=== PATIENT | female | born 1930 | race Caucasian/White ===

== ENCOUNTER 2017-10-10 20:31 | Inpatient (IN) | payer MEDICARE, BC ==
[~2017-10-10] VITALS: Ht 152.4 cm; Wt 36.6 kg
[~2017-10-10 20:31] MED LIST: ACET160L7 PO; ASPI81TA82 PO; ATEN-100 PO; CETI10 PO; COUG100S2 PO; DOK100TA PO; FERR324T4 PO; FLUT50SP EACH NARE; MILKSUS5; MIRTA15 PO; ROSU1TAB6; THERTAB17; VITA500T83 PO
[2017-10-10 20:47] VITALS: BP 128/64; PULSE 91; RESP 18; TEMP 98.4; O2SAT 96
[2017-10-10] MEDS ORDERED: SERT25TA83 PO (21:05)
[2017-10-10] MEDS ORDERED: DOCU50CA5 PO (21:05)
[2017-10-10] MEDS ORDERED: ROSU10 PO (21:05)
[2017-10-10] MEDS ORDERED: METO1TAB42 PO (21:05)
[2017-10-10] MEDS ORDERED: FERR325T18 PO (21:05)
--- NOTE | 2017-10-10 21:06 | PD ---
HPI Chief Complaint: GI Complaint Time Seen by Provider: 20:47 Travel History International Travel<30 days: No Contact w/Intl Traveler<30days: No Traveled to known affect area: No History of Present Illness HPI The patient is an 87-year-old female that has recurrent rectal prolapse. She has at least 5 episodes daily of rectal prolapse. Stool is over the house at home and she is becoming progressively more difficult to care for. The family cannot care for her at home. She was sent out here for "altered mental status" but she is alert and oriented 3. She is able to give a very concise, coherent up-to-date history about her condition. When EVAC stood her up to get her in the ambulance she had a large rectal prolapse which she could not reduce and was very painful. The pain is a 6/10 when the rectum is prolapsed. The patient is a patient of Dr. Thu Morrison and Dr. Morrison inform me about the untenable home situation. PFSH Past Medical History Autoimmune Disease: No Blood Disorders: No Cancer: No Cardiovascular Problems: Yes High Cholesterol: Yes Chemotherapy: No Cerebrovascular Accident: Yes (TIA) Diabetes: No Diminished Hearing: No Endocrine: No Glaucoma: Yes Genitourinary: No Hiatal Hernia: Yes Musculoskeletal: No Neurologic: No Psychiatric: No Respiratory: No Radiation Therapy: No ?: Not Past Surgical History Abdominal Surgery: No Cardiac Surgery: No Ear Surgery: Yes Endocrine Surgery: No Eye Surgery: Yes Genitourinary Surgery: No Gynecologic Surgery: No Hysterectomy: Yes Oral Surgery: Yes Thoracic Surgery: No Other Surgery: Yes Social History Alcohol Use: No Tobacco Use: Yes (35 YRS AGO ) Substance Use: No Allergies-Medications (Allergen,Severity, Reaction): Coded Allergies: clarithromycin (Unverified Allergy, Severe, SOB, 03/15/17) doxycycline (Unverified Allergy, Severe, SOB, 03/15/17) ibuprofen (Unverified Allergy, Severe, SOB, 03/15/17) minocycline (Unverified Allergy, Severe, SOB, 03/15/17) penicillin G (Unverified Allergy, Severe, SOB, 03/15/17) tigecycline (Unverified Allergy, Severe, SOB, 03/15/17) Beef Containing Products (Unverified Allergy, Unknown, "CAN'T DIGEST IT", 03/15/17) Reported Meds & Prescriptions Reported Meds & Active Scripts Active Reported Sertraline (Sertraline HCl) 25 Mg Tab 25 Mg PO DAILY Metoprolol Succinate ER 24 HR (Metoprolol Succinate) 25 Mg Tab 25 Mg PO DAILY Crestor (Rosuvastatin Calcium) 10 Mg Tab 10 Mg PO DAILY Stool Softener (Docusate Sodium) 50 Mg Capsule 100 Mg PO DAILY Ferrous Sulfate 325 Mg (65 Mg Iron) Tablet 325 Mg PO DAILY Review of Systems Except as stated in HPI: all other systems reviewed are Neg Physical Exam Narrative GENERAL: The patient is alert, oriented 3 in moderate apparent distress with her rectal prolapse. SKIN: Focused skin assessment warm/dry. Her vital signs show a pulse of 91 but are otherwise normal. HEAD: Atraumatic. Normocephalic. EYES: Pupils equal and round. No scleral icterus. No injection or drainage. ENT: No nasal bleeding or discharge. Mucous membranes pink and moist. NECK: Trachea midline. No JVD. CARDIOVASCULAR: Regular rate and rhythm. No murmur appreciated. RESPIRATORY: No accessory muscle use. Clear to auscultation. Breath sounds equal bilaterally. GASTROINTESTINAL: Abdomen soft, non-tender, nondistended. Hepatic and splenic margins not palpable. MUSCULOSKELETAL: No obvious deformities. No clubbing. No cyanosis. No edema. NEUROLOGICAL: Awake and alert. No obvious cranial nerve deficits. Motor grossly within normal limits. Normal speech. PSYCHIATRIC: Appropriate mood and affect; insight and judgment normal. Rectal: The rectum is prolapsed and creates about a 10 cm diameter rounded mass at the rectum. It is exquisitely tender and the patient is in significant pain. The rectal prolapse was reduced by myself. The sphincter tone was extremely lax and this prolapse will certainly recur. All it would take is her standing in the rectum will come out. The patient later stood up again here in the right rectal prolapsed again. I reduced it again. There is a small amount of bleeding from the rectum now. The mucosa is bright pink and there is no evidence of impaired blood supply. Data Data Last Documented VS Vital Signs Date Time Temp Pulse Resp B/P (MAP) Pulse Ox O2 Delivery O2 Flow Rate FiO2 10/10/17 21:53 87 16 140/62 (88) 96 Room Air 10/10/17 20:47 98.4 Orders Orders Complete Blood Count With Diff (10/10/17 20:47) Comprehensive Metabolic Panel (10/10/17 20:47) Urinalysis - C+S If Indicated (10/10/17 20:47) Prothrombin Time / Inr (Pt) (10/10/17 21:08) Act Partial Throm Time (Ptt) (10/10/17 21:08) Urine Culture (10/10/17 21:14) Place In Observation (10/10/17 ) Vital Signs (Adult) Q4H (10/10/17 21:46) Activity Oob With Assistance (10/10/17 21:46) Manager Planning / Telemetry .CONTINUOUS (10/10/17 21:46) Diet Heart Healthy (10/11/17 Breakfast) Sodium Chloride 0.9% Flush (Ns Flush) (10/10/17 22:00) Sodium Chloride 0.9% Flush (Ns Flush) (10/11/17 09:00) Basic Metabolic Panel (Bmp) (10/11/17 06:00) Complete Blood Count With Diff (10/11/17 06:00) Pt Request For Service (10/10/17 21:46) Case Management Consult (10/10/17 21:46) Naloxone Inj (Narcan Inj) (10/10/17 22:00) Consult Colorectal Surgery (10/10/17 ) Ceftriaxone Inj (Rocephin Inj) (10/10/17 22:00) Ceftriaxone Inj (Rocephin Inj) (10/11/17 20:00) Labs Laboratory Tests Test 10/10/17 21:14 Prothrombin Time 10.6 SEC Prothromb Time International Ratio 1.0 RATIO Activated Partial Thromboplast Time 24.5 SEC Urine Color YELLOW Urine Turbidity SL CLOUDY Urine pH 6.0 Urine Specific [place] 1.020 Urine Protein TRACE mg/dL Urine Glucose (UA) NEG mg/dL Urine Ketones TRACE mg/dL Urine Occult Blood LARGE Urine Nitrite NEG Urine Bilirubin NEG Urine Urobilinogen 0.2 MG/DL Urine Leukocyte Esterase NEG Urine RBC INNUM /hpf Urine WBC 9-14 /hpf Urine Squamous Epithelial Cells 0-5 /hpf Microscopic Urinalysis Comment CULTURE INDICATED Blood Urea Nitrogen 19 MG/DL Creatinine 0.77 MG/DL Random Glucose 110 MG/DL Total Protein 7.3 GM/DL Albumin 3.3 GM/DL Calcium Level 8.3 MG/DL Alkaline Phosphatase 103 U/L Aspartate Amino Transf (AST/SGOT) 36 U/L Alanine Aminotransferase (ALT/SGPT) 34 U/L Total Bilirubin 0.2 MG/DL Sodium Level 138 MEQ/L Potassium Level 4.2 MEQ/L Chloride Level 103 MEQ/L Carbon Dioxide Level 29.7 MEQ/L Anion Gap 5 MEQ/L Estimat Glomerular Filtration Rate 71 ML/MIN MDM Medical Decision Making Medical Screen Exam Complete: Yes Emergency Medical Condition: Yes Medical Record Reviewed: Yes Interpretation(s) The urine shows slightly cloudy turbidity, trace ketones, large occult blood with innumerable red cells on 9-14 white cells and culture is indicated. Differential Diagnosis Urinary tract infection, rectal prolapse-recurrent, intractable rectal pain, electrolyte abnormality, anemia, renal insufficiency, ischemic rectum-unlikely Narrative Course The patient has a recurrent rectal prolapse which was so frequent that it comes out every time she stands up. It also comes out when she has a bowel movement. The home situation is untenable, there is stool throughout the house. The patient will be admitted and Dr. Mason will consult for colorectal. She has a questionable urinary tract infection. Physician Communication Physician Communication I discussed the patient with Dr. Shipley, the patient will be admitted to her. I also discussed the patient with Dr. Lopze who is covering for Dr. Mason. Dr. Mason will consult in the morning. Diagnosis Primary Impression: Rectal prolapse Additional Impressions: Intractable pain Rectal bleeding Admitting Information Admitting Physician Requests: Chad Dixon MD Oct 10, 2017 21:06
[2017-10-10 21:31] LABS: BILIRUBIN, URINE NEG (NEG); BLOOD, URINE LARGE (NEG); GLUCOSE,URINE NEG (NEG); KETONE, URINE TRACE mg/dL (NEG); NITRITE,URINE NEG (NEG); URINE COLOR YELLOW (YELLW/STRAW); URINE LEUKOCYTE ESTERASE NEG (NEG)
[2017-10-10 21:39] LABS: CHLORIDE 103 MEQ/L (98-107); SODIUM (NA) 138 MEQ/L (136-145)
[2017-10-10 21:42] LABS: ALBUMIN 3.3 GM/DL (3.4-5.0); BICARBONATE 29.7 MEQ/L (21.0-32.0); CALCIUM 8.3 MG/DL (8.5-10.1); GLUCOSE,RANDOM 110 MG/DL (74-106)
[2017-10-10 21:43] LABS: BLOOD UREA NITROGEN 19 MG/DL (7-18); PROTHROMBIN TIME - PATIENT 10.6 SEC (9.8-11.6)
[2017-10-10 21:44] LABS: RBC, URINE INNUM /hpf (0-3)
[2017-10-10 21:45] LABS: ALT (GPT) 34 U/L (10-53); SQUAMOUS EPITHELIAL CELL URINE 0-5 /hpf (0-5)
[2017-10-10 21:46] LABS: AST (GOT) 36 U/L (15-37); CREATININE 0.77 MG/DL (0.50-1.00); GLOMERULAR FILTRATION RATE 71 ML/MIN (>89)
[2017-10-10 21:47] LABS: TOTAL BILIRUBIN ADULT 0.2 MG/DL (0.2-1.0); TOTAL PROTEIN 7.3 GM/DL (6.4-8.2)
[2017-10-10 21:48] LABS: ALKALINE PHOSPHATASE 103 U/L (45-117)
[2017-10-10 21:53] VITALS: BP 140/62; PULSE 87; RESP 16; O2SAT 96
[2017-10-10 21:53] LABS: AUTOMATED NEUTROPHIL # 11.9 TH/MM3 (1.8-7.7); BASOPHIL % 0.3 % (0.0-2.0); EOSINOPHIL # 0.3 TH/MM3 (0-0.4); EOSINOPHIL % 2.2 % (0.0-4.0); HEMATOCRIT 38.4 % (35.0-46.0); HEMOGLOBIN 12.6 GM/DL (11.6-15.3); LYMPH % 6.4 % (9.0-44.0); LYMPHOCYTE # 0.9 TH/MM3 (1.0-4.8); MEAN CELL VOLUME 91.8 FL (80.0-100.0); MEAN CORPUSCULAR HEMOGLOBIN 30.1 PG (27.0-34.0); MEAN CORPUSCULAR HGB CONC 32.8 % (32.0-36.0); MEAN PLATELET VOLUME 7.9 FL (7.0-11.0); MONOCYTE # 1.1 TH/MM3 (0-0.9); NEUT % 83.1 % (16.0-70.0); PLATELET COUNT 348 TH/MM3 (150-450); RED BLOOD COUNT 4.18 MIL/MM3 (4.00-5.30); RED CELL DISTRIBUTION WIDTH 13.3 % (11.6-17.2); WHITE BLOOD COUNT 14.2 TH/MM3 (4.0-11.0)
[2017-10-10] MEDS ORDERED: SODIUM CHLORIDE 0.9% FLUSH 10 ML FLUSH IV FLUSH PRN (22:00)
[2017-10-10] MEDS ORDERED: cefTRIAXone INJ 1,000 MG in SODIUM CHLORIDE 0.9% INJ 100 ML IV ONE (22:00)
[2017-10-10] MEDS ORDERED: NALOXONE HCL 0.4 MG/ML AMP IV PUSH PRN (22:00)
[2017-10-10 22:58] VITALS: BP 111/79; TEMP 98.2
[2017-10-10] MEDS ORDERED: diphenhydrAMINE HCL 50 MG/ML VIAL IVP ONE (23:00)
[2017-10-10 23:02] VITALS: BP 174/97; PULSE 111; RESP 16; TEMP 97; O2SAT 94
[2017-10-10 23:31] VITALS: PULSE 119
[2017-10-11] VITALS: BP 145/63; PULSE 107; RESP 16; TEMP 98.5; O2SAT 94
[2017-10-11] MEDS ORDERED: diphenhydrAMINE HCL 50 MG/ML VIAL IV PUSH ONE (03:45)
[2017-10-11 04:00] VITALS: BP 140/64; PULSE 106; RESP 16; TEMP 98; O2SAT 93
[2017-10-11 06:57] LABS: AUTOMATED NEUTROPHIL # 11.5 TH/MM3 (1.8-7.7); BASOPHIL # 0.1 TH/MM3 (0-0.2); BASOPHIL % 0.6 % (0.0-2.0); EOSINOPHIL # 0.9 TH/MM3 (0-0.4); EOSINOPHIL % 6.1 % (0.0-4.0); HEMATOCRIT 36.8 % (35.0-46.0); HEMOGLOBIN 12.6 GM/DL (11.6-15.3); LYMPH % 9.4 % (9.0-44.0); LYMPHOCYTE # 1.5 TH/MM3 (1.0-4.8); MEAN CELL VOLUME 90.1 FL (80.0-100.0); MEAN CORPUSCULAR HEMOGLOBIN 30.9 PG (27.0-34.0); MEAN CORPUSCULAR HGB CONC 34.2 % (32.0-36.0); MEAN PLATELET VOLUME 7.9 FL (7.0-11.0); MONO % 8.9 % (0.0-8.0); MONOCYTE # 1.4 TH/MM3 (0-0.9); PLATELET COUNT 318 TH/MM3 (150-450); RED BLOOD COUNT 4.09 MIL/MM3 (4.00-5.30); WHITE BLOOD COUNT 15.4 TH/MM3 (4.0-11.0)
[2017-10-11 07:13] LABS: CALCIUM 8.4 MG/DL (8.5-10.1)
[2017-10-11 07:14] LABS: BICARBONATE 27.9 MEQ/L (21.0-32.0)
[2017-10-11 07:17] LABS: CREATININE 0.65 MG/DL (0.50-1.00)
[2017-10-11 08:00] VITALS: BP 122/60; PULSE 101; PULSE 53; RESP 18; TEMP 98.1; O2SAT 95
--- NOTE | 2017-10-11 08:20 | HHI.PR ---
Addendum to Inpatient Note Addendum Reason: Additional Documentation Additional Information Although patient is seemingly alert and oriented, both family and home health care who have been seeing her have found significant memory issues (she hasn't remembered the physical therapist or instructions from one visit to the next in the same week). Family notes her mental status seems to fluctuate from day to day--some days good, some not so good. They are having trouble caring for her stool needs at home due to weakness, trouble transferring to the toilet, as well as the rectal prolapse. She does have moderate aortic stenosis and other valvular issues not needing surgery at this time (just done at [facility]). Her labs have been good on testing. Metoprolol has been used more for h/o SVT than for BP control. She lives at her son's house, however he works and there are caregivers there during the day to assist her. She had been resistant to the idea of surgery for the prolapse in the past but it seems to be getting to the point that her quality of life in her current situation is poor and if surgery can improve that it may be warrented. Please keep her son up to date if possible (Gerard Romo). She is likely capable of making her own decisions at this time, however in my experience he has been involved in her care (I don't have POA papers on her chart at this time). She is new to me over the past few months. She has also had a diffuse rash and itching that I treated imperically for scabies last week--not sure if it has improved at this time or not (she had scabies last year when at an [facility]). Thu Curiel MD Oct 11, 2017 08:20
[2017-10-11] MEDS ORDERED: LEVOFLOXACIN 750 MG PREMIX INJ 150 ML IV SCH (09:00)
[2017-10-11] MEDS: SODIUM CHLORIDE 0.9% FLUSH 10 ML FLUSH IV FLUSH SCH ×2 (09:24→22:13)
--- NOTE | 2017-10-11 11:02 | HHI.HP ---
[facility] Primary Care Physician Arnaldo Hassan M.D. Admission Diagnosis Rectal prolapse with intractable rectal pain Diagnoses: Chief Complaint: Rectal prolapse and altered mental status Travel History International Travel<30 Days: No Contact w/Intl Traveler <30 Da: No Traveled to Known Affected Are: No History of Present Illness This is an 87-year-old female with history of TIA, dyslipidemia, glaucoma and rectal prolapse presented with altered mental status and rectal prolapse. Patient was initially admitted because of altered mental status however she is alert and oriented upon ED evaluation. Per patient's primary care physician Dr. Morrison, patient's mental status waxes and wanes. Her main complaint is rectal prolapse which happens about 5 times a day. She has home health care and has been progressively more difficult to care for. The family allegedly has been having a hard time taking care of her at home. When she stood up getting out of the ambulance, she had a huge rectal prolapse and wa very painful. Per patient, she is able to reduce the rectal prolapse by herself. She does not have any complaints. He is a chronic cough from postnasal drip. Denies any chest pain, fever, shortness of breath, nausea, vomiting, abdominal pain or any urinary symptoms. She just wants to go home. I tried to call the patient's son Gerard Ruffin and patient's daughter Jackie, both did not brass pickler. I left a voicemail message for Jackie. Review of Systems ROS Limitations: Other (All other pertinent systems were reviewed and are negative.) Past Family Social History Past Medical History TIA, Hiatal hernia Rectal prolapse Past Surgical History Urinary surgery Hysterectomy Oral surgery Reported Medications Sertraline (Sertraline HCl) 25 Mg Tab 25 Mg PO DAILY Metoprolol Succinate ER 24 HR (Metoprolol Succinate) 25 Mg Tab 25 Mg PO DAILY Crestor (Rosuvastatin Calcium) 10 Mg Tab 10 Mg PO DAILY Stool Softener (Docusate Sodium) 50 Mg Capsule 100 Mg PO DAILY Ferrous Sulfate 325 Mg (65 Mg Iron) Tablet 325 Mg PO DAILY Allergies: Coded Allergies: clarithromycin (Unverified Allergy, Severe, SOB, 8/15/17) doxycycline (Unverified Allergy, Severe, SOB, 03/15/17) ibuprofen (Unverified Allergy, Severe, SOB, 03/15/17) minocycline (Unverified Allergy, Severe, SOB, 03/15/17) penicillin G (Unverified Allergy, Severe, SOB, 03/15/17) tigecycline (Unverified Allergy, Severe, SOB, 03/15/17) Beef Containing Products (Unverified Allergy, Unknown, "CAN'T DIGEST IT", 03/15/17) Family History Father had Parkinson's, mother had congestive heart failure. Social History Stopped smoking 35 years, no significant alcohol use. Physical Exam Vital Signs Vital Signs Date Time Temp Pulse Resp B/P (MAP) Pulse Ox O2 Delivery O2 Flow Rate FiO2 10/11/17 08:00 98.1 53 18 122/60 (80) 95 10/11/17 08:00 101 10/11/17 04:00 98.0 106 16 140/64 (89) 93 10/11/17 00:00 98.5 107 16 145/63 (90) 94 10/10/17 23:31 119 10/10/17 23:02 97.0 111 16 174/97 (122) 94 10/10/17 22:58 98.2 70 16 111/79 (90) 97 10/10/17 21:53 87 16 140/62 (88) 96 Room Air 10/10/17 20:47 98.4 91 18 128/64 (85) 96 Physical Exam Not in distress, well-nourished, looks stated age PERRL, pink conjunctiva without injection, anicteric Nose without bleeding, airway patent, oropharynx clear Supple neck, no masses or thyromegaly, trachea midline Normal rate and regular rhythm, systolic murmur, for over 6. Clear to auscultation and symmetric bilaterally, normal respiratory effort. Normal bowel sounds, soft, non-tender, nondistended, no guarding. No suprapubic tenderness, negative CVA tenderness. Rectal exam deferred Extremities without clubbing, cyanosis, or edema. No rash of generalized distribution. Skin is warm and dry. AAO to place, person and year. No cranial nerve deficits, moves all 4 extremities, no focal neurologic deficits Normal mood, appropriate affect Laboratory Laboratory Tests Test 10/10/17 21:14 10/11/17 06:00 White Blood Count 14.2 15.4 Red Blood Count 4.18 4.09 Hemoglobin 12.6 12.6 Hematocrit 38.4 36.8 Mean Corpuscular Volume 91.8 90.1 Mean Corpuscular Hemoglobin 30.1 30.9 Mean Corpuscular Hemoglobin Concent 32.8 34.2 Red Cell Distribution Width 13.3 13.0 Platelet Count 348 318 Mean Platelet Volume 7.9 7.9 Neutrophils (%) (Auto) 83.1 75.0 Lymphocytes (%) (Auto) 6.4 9.4 Monocytes (%) (Auto) 8.0 8.9 Eosinophils (%) (Auto) 2.2 6.1 Basophils (%) (Auto) 0.3 0.6 Neutrophils # (Auto) 11.9 11.5 Lymphocytes # (Auto) 0.9 1.5 Monocytes # (Auto) 1.1 1.4 Eosinophils # (Auto) 0.3 0.9 Basophils # (Auto) 0.0 0.1 CBC Comment DIFF FINAL DIFF FINAL Differential Comment Prothrombin Time 10.6 Prothromb Time International Ratio 1.0 Activated Partial Thromboplast Time 24.5 Urine Color YELLOW Urine Turbidity SL CLOUDY Urine pH 6.0 Urine Specific [place] 1.020 Urine Protein TRACE Urine Glucose (UA) NEG Urine Ketones TRACE Urine Occult Blood LARGE Urine Nitrite NEG Urine Bilirubin NEG Urine Urobilinogen 0.2 Urine Leukocyte Esterase NEG Urine RBC INNUM Urine WBC 9-14 Urine Squamous Epithelial Cells 0-5 Microscopic Urinalysis Comment CULTURE INDICATED Blood Urea Nitrogen 19 11 Creatinine 0.77 0.65 Random Glucose 110 83 Total Protein 7.3 Albumin 3.3 Calcium Level 8.3 8.4 Alkaline Phosphatase 103 Aspartate Amino Transf (AST/SGOT) 36 Alanine Aminotransferase (ALT/SGPT) 34 Total Bilirubin 0.2 Sodium Level 138 141 Potassium Level 4.2 3.6 Chloride Level 103 106 Carbon Dioxide Level 29.7 27.9 Anion Gap 5 7 Estimat Glomerular Filtration Rate 71 87 Date/Time Source Procedure Growth Status 10/10/17 21:14 Urine Clean Catch Urine Culture Pending Received Result Diagram: 10/11/17 0600 10/11/17 0600 Caprini VTE Risk Assessment Caprini VTE Risk Assessment: Mod/High Risk (score >= 2) Caprini Risk Assessment Model Point Value = 1 Point Value = 2 Point Value = 3 Point Value = 5 Age 41-60 Minor surgery BMI > 25 kg/m2 Swollen legs Varicose veins or History of unexplained or recurrent spontaneous Oral contraceptives or hormone replacement Sepsis (< 1 month) Serious lung disease, including pneumonia (< 1 month) Abnormal pulmonary function Acute myocardial infarction Congestive heart failure (< 1 month) History of inflammatory bowel disease Medical patient at bed rest Age 61-74 Arthroscopic surgery Major open surgery (> 45 min) Laparoscopic surgery (> 45 min) Malignancy Confined to bed (> 72 hours) Immobilizing plaster cast Central venous access Age >= 75 History of VTE Family history of VTE Factor V Leiden Prothrombin [id number] Lupus anticoagulant Anticardiolipin antibodies Elevated serum homocysteine Heparin-induced thrombocytopenia Other congenital or acquired thrombophilia Stroke (< 1 month) Elective arthroplasty Hip, pelvis, or leg fracture Acute spinal cord injury (< 1 month) Prophylaxis Regimen Total Risk Factor Score Risk Level Prophylaxis Regimen 0-1 Low Early ambulation 2 Moderate Order ONE of the following: *Sequential Compression Device (SCD) *Heparin 5000 units SQ BID 3-4 Higher Order ONE of the following medications: *Heparin 5000 units SQ TID *Enoxaparin/Lovenox 40 mg SQ daily (WT < 150 kg, CrCl > 30 mL/min) *Enoxaparin/Lovenox 30 mg SQ daily (WT < 150 kg, CrCl > 10-29 mL/min) *Enoxaparin/Lovenox 30 mg SQ BID (WT < 150 kg, CrCl > 30 mL/min) AND/OR *Sequential Compression Device (SCD) 5 or more Highest Order ONE of the following medications: *Heparin 5000 units SQ TID (Preferred with Epidurals) *Enoxaparin/Lovenox 40 mg SQ daily (WT < 150 kg, CrCl > 30 mL/min) *Enoxaparin/Lovenox 30 mg SQ daily (WT < 150 kg, CrCl > 10-29 mL/min) *Enoxaparin/Lovenox 30 mg SQ BID (WT < 150 kg, CrCl > 30 mL/min) AND *Sequential Compression Device (SCD) Assessment and Plan Assessment and Plan This is an 87-year-old female presenting with rectal prolapse and altered mental status Rectal prolapse-reproducible, 5 episodes daily, very painful allegedly but presently patient is very comfortable, colorectal surgery consulted, Dr. Mason saw the patient. Patient declines inpatient surgery but is okay with outpatient surgery. Per patient, it is reproducible. Surgery as outpatient. Toxic metabolic encephalopathy likely secondary to urinary tract infection- presently, patient's mental status is at baseline, per patient's primary care physician, mental status waxes and wanes, positive for leukocytosis, urinalysis positive, follow-up urine culture, on Levaquin, discharge on ciprofloxacin, follow-up culture and sensitivity. Aortic stenosis, hypertension- stable, continue metoprolol, not in heart failure. History of SVT-continue metoprolol. Disposition: Followed by home health care, family has been having problems taking care of her, might need SNF, consult physical therapy, consult case management. Tried to call patient's son Ger Ruffin and daughter Anu, no reply, left a message for Mathew. Discussed with case management. Addendum: I was able to get in touch with his son around 2:30 PM after he called case management. He was very upset that the patient is not getting surgery. I emphasized to him that her mother refused the surgery and would like to do the surgery as outpatient and that even though he has power of traffic law attorney, I told him that she has the capacity to make decisions for herself at least during the encounter that I had with the patient. There is no urgency to do the surgery as inpatient. Ger Ruffin was also very upset that I tried to call his sister who should not have been called. I informed him that he did not brass pickler and so I needed to call his sister. He said he would like to talk to Dr. Mason and convince him to do the surgery. He also vehemently refused alf placement saying that the hospital would prefer to send the patient to the alf because that makes money for the hospital. He said that he can take care of the patient safely at home. He was not very pleasant, very upset, was interrupting me the whole time I was speaking with racial undertones criticizing my accent and Stateless. He said there is no way that he would allow that surgery would not occur during this hospitalization. I discussed with Dr. Mason around 5 pm, he agreed that there is no need to do the surgery as inpatient. He advised to have the patient follow-up on at his office. Patient will be discharged with home health care since the patient's POA and the patient herself refused alf placement despite me explaining to Ger that my recommendation including the recommendation from physical therapy is for her mother to get rehabilitative physical therapy at a alf facility. He thinks that this is a money making scheme for the hospital. The plan was discussed with case management past 5 PM. Carlos Castillo MD Oct 11, 2017 11:02
[2017-10-11] MEDS ORDERED: CIPR500T2 PO (11:40)
[2017-10-11 12:00] VITALS: BP 109/62; PULSE 62; RESP 18; TEMP 98; O2SAT 95
--- NOTE | 2017-10-11 12:02 | HHI.FF ---
Face to Face Verification Diagnosis: (1) Rectal prolapse Physical Therapy Order: Evaluate and Treat Home Health Nursing Order: Signs/symptoms of disease process Nursing assessment with vital signs I have seen patient Monika Ruffin on 10/11/17. My clinical findings support the need for the requested home health care services because: Ltd mobility - disease progression Deconditioned w/ increased weakness I certify that my clinical findings support that this patient is homebound because: Impaired cognitive ability/safety Carlos Castillo MD Oct 11, 2017 12:02
[2017-10-11 16:00] VITALS: BP 118/60; PULSE 60; RESP 18; TEMP 98; O2SAT 95
[2017-10-11 20:00] VITALS: BP 122/81; PULSE 102; RESP 18; TEMP 97.9; O2SAT 93
[2017-10-11] MEDS ORDERED: cefTRIAXone INJ 1,000 MG in SODIUM CHLORIDE 0.9% INJ 100 ML IV SCH (20:00)
--- NOTE | 2017-10-11 20:41 | MB ---
cc: Blair Mason MD, DATE OF CONSULT: 10/11/2017 REASON FOR CONSULTATION: Rectal prolapse. HISTORY OF PRESENT ILLNESS: Ms. Ruffin is a very pleasant 87-year-old lady who has had rectal prolapse now for a long time. She has been followed in the office for many years and has always declined any surgical repair of the prolapse. Patient is now living with her son and has been having more trouble with short-term memory loss. She has had more trouble with prolapse and reducing the prolapse, which causes incontinence and trouble with stool control. Patient was brought to the emergency room today by the son to hopefully get surgical repair of the rectal prolapse. She does move her bowels quite frequently and incontinently. She has been wearing a diaper for control. She denies any real abdominal pain. No nausea, vomiting. Denies any significant diarrhea or melena. Please see the history and physical for a more complete past medical and surgical history. PERTINENT PHYSICAL EXAMINATION: GENERAL: A very pleasant, older female, in no acute distress. HEENT: Remarkable for pink, dry membranes. Nonicteric sclerae. NECK: A little stiff without adenopathy. CHEST: Relatively clear, but diminished in the bases. HEART: Had a regular rhythm. ABDOMEN: Soft and doughy, some tympany. No rebound or guarding, nor any masses noted. RECTAL: Anal inspection revealed a very patulous canal with very little sphincter control. Full thickness prolapse was easily produced and reduced with minimal pressure. EXTREMITIES: Show no cyanosis or clubbing and minimal trace pedal edema. IMPRESSION: An 87-year-old female with longstanding rectal prolapse who seems to be having more trouble with incontinence with reducing the prolapse. Patient is living with her son and care of the patient has become more troublesome. Discussed with the patient in detail and she refused to consider any surgery, saying she was going to live with the prolapse and avoid any surgical procedures. Later in the day, Dr. Castillo did contact the son and I contacted him as well and he says he has convinced his mother that repair of the prolapse would be in her best interest. Lengthy discussion with the son about the risks and benefits of the surgery in an 87-year-old lady with rectal prolapse. He is convinced that repairing the prolapse is the only way that his mother can get any quality of life left without sitting on the toilet or having a diaper on at all times. At this point, patient could probably be discharged home since she has had the prolapse for some time and I would be happy to see her in the office for preop evaluation and potentially scheduling the surgery same-day admission, if the patient and the son both agree to the proposed surgery. Risks, benefits, alternatives all reviewed and will hopefully see them in the office after discharge home on a regular diet. Suggested she avoid straining and wear the diaper for stool control in the meantime. Blair Mason MD AHR/SB , 08:23 PM , 08:39 PM
[2017-10-12] VITALS: BP 129/73; PULSE 85; RESP 16; TEMP 97.6; O2SAT 95
[2017-10-12 07:50] VITALS: BP 110/58; PULSE 87; RESP 20; TEMP 96.6; O2SAT 92
--- NOTE | 2017-10-12 08:07 | HHI.PR ---
Subjective Remarks Patient seen and examined today for follow-up on rectal prolapse, urinary tract infection. Patient laying in bed comfortably. Denies any new complaints. Patient was actually discharged yesterday, however awaiting for son to come pick her up and take her home. Objective Vitals Vital Signs Date Time Temp Pulse Resp B/P (MAP) Pulse Ox O2 Delivery O2 Flow Rate FiO2 10/12/17 00:00 97.6 85 16 129/73 (91) 95 10/11/17 20:00 97.9 102 18 122/81 (95) 93 10/11/17 16:00 98.0 60 18 118/60 (79) 95 10/11/17 12:00 98.0 62 18 109/62 (78) 95 10/11/17 08:00 98.1 53 18 122/60 (80) 95 10/11/17 08:00 101 I/O 10/11/17 10/11/17 10/11/17 10/12/17 10/12/17 10/12/17 07:00 15:00 23:00 07:00 15:00 23:00 Intake Total 240 ml 400 ml Output Total 300 ml Balance 240 ml 400 ml -300 ml Intake Oral 240 ml 400 ml Output Urine Total 300 ml # Voids 2 # Bowel Movements 0 Result Diagram: 10/11/17 0600 10/11/17 0600 Objective Remarks GENERAL: Well-developed, well-nourished, in no acute distress. alert HEENT: Head is normocephalic without any lesions or masses noted. Facial features are symmetric. Eyes: Extraocular muscles are intact. Conjunctivae were clear. NECK: Supple without any masses. Trachea midline no deviation. No JVD, CARDIAC: Irregular rhythm, irregular rate. S1/S2 are heard. No murmurs gallops or rubs. LUNGS: Clear to auscultation bilaterally. No wheeze, rhonchi or rales. No use of accessory muscles on inspiration or expiration. ABDOMEN: Soft, nontender. Nondistended. Bowel sounds heard in all 4 quadrants. No organomegaly or masses. Negative rebound, negative guarding EXTREMITIES: No edema, pulses are equal bilaterally. No cyanosis or clubbing NEUROLOGY: Mood and affect appear appropriate. Cranial nerves II through XII grossly intact. Moving all extremities, speech is clear Urinary Catheter: No Vascular Central Line Catheter: No A/P Assessment and Plan Rectal prolapse-reproducible Colorectal surgery was consulted, Dr. Mason saw the patient. At that time patient declined any surgery. Dr. Castillo did speak with the son and Dr. Mason extensively. As indicated that surgery will not be done as inpatient. Patient will have follow- up appointment Dr. Mason on for further evaluation Urinary tract infection Urine culture shows no growth for 24 hours Patient was started on Levaquin, Cipro has been written for outpatient treatment Toxic metabolic encephalopathy likely secondary to urinary tract infection Per patient's primary medical physician as indicated patient is presently at her baseline mentation Patient's mentation does wax and wane on a daily basis. Aortic stenosis, hypertension, history of SVT stable, continue metoprolol, not in heart failure. Discharge Planning Patient was discharged 10/11/17 home in stable condition Activity: Ad юлия. Diet: Healthy heart diet Medication per medication reconciliation Follow-up with primary medical doctor in 1 week, follow-up with Dr. Mason tomorrow Piotr Olvera Oct 12, 2017 08:07
[2017-10-12] MEDS: SODIUM CHLORIDE 0.9% FLUSH 10 ML FLUSH IV FLUSH SCH (09:00)
[2017-10-12] MEDS ORDERED: ONDANSETRON HCL 4 MG/2 ML VIAL IV PUSH ONE (14:30)
[2017-10-13] MEDS ORDERED: LEVOFLOXACIN 750 MG PREMIX INJ 150 ML IV SCH (09:00)
[2017-10-13] MEDS ORDERED: MIRT30TA PO (09:44)
== END 2017-10-12 14:28 | disposition home or self-care (01) | DRG 393 ==
LOC: PHED 20:31 → PHEDA 22:04 → PH3B 23:02 → OBSVTOIN 10-11 12:01
PROVIDERS: ADMIT Hospitalist; ATTEND Hospitalist
DX: K62.3 Rectal prolapse (principal); G92 Toxic encephalopathy; N39.0 Urinary tract infection, site not specified; I35.0 Nonrheumatic aortic (valve) stenosis; E78.5 Hyperlipidemia, unspecified; H40.9 Unspecified glaucoma; Z86.73 Personal history of transient ischemic attack (TIA), and cerebral infarction without residual deficits; R09.82 Postnasal drip; R05 Cough; K44.9 Diaphragmatic hernia without obstruction or gangrene; Z87.891 Personal history of nicotine dependence; I10 Essential (primary) hypertension
CPT/HCPCS: 80048; 80053; 81001; 85025; 85610; 85730; 87086; 96365; 96375; G0378; G8987-GP; G8988-GP; J0696; J1200; J1956

== ENCOUNTER 2017-10-13 08:58 | Inpatient (IN) | payer MEDICARE, BC ==
[~2017-10-13] VITALS: Ht 157.5 cm; Wt 42.0 kg
[~2017-10-13 08:58] MED LIST changes: -ACET160L7 PO; -ASPI81TA82 PO; -ATEN-100 PO; -CETI10 PO; +CIPR500T2 PO; -COUG100S2 PO; +DOCU50CA5 PO; -DOK100TA PO; -FERR324T4 PO; +FERR325T18 PO; -FLUT50SP EACH NARE; +METO1TAB42 PO; -MILKSUS5; -MIRTA15 PO; +ROSU10 PO; -ROSU1TAB6; +SERT25TA83 PO; -THERTAB17; -VITA500T83 PO
[2017-10-13 09:10] VITALS: BP 133/86; PULSE 113; RESP 18; TEMP 98.5; O2SAT 98
--- NOTE | 2017-10-13 09:21 | PD ---
HPI Chief Complaint: GI Complaint Time Seen by Provider: 09:15 Travel History International Travel<30 days: No Contact w/Intl Traveler<30days: No Traveled to known affect area: No History of Present Illness HPI 87-year-old female patient with history of rectal prolapse, released from the hospital yesterday, returned home, and apparently was found by the granddaughter on the floor this morning. She states that she had fallen out of bed and was too weak to get back up on her own. Her granddaughter states that she was disoriented, patient states that her rectal prolapse is back. She denies injuries. EMS states that there was blood on the ground and around the patient as well. Modifying Factors: None Associated Signs & Symptoms: Rectal prolapse, bleeding, altered mental status Risk Factors: None PFSH Past Medical History Autoimmune Disease: No Blood Disorders: No Cancer: No Cardiovascular Problems: Yes (MURMUR) High Cholesterol: Yes Chemotherapy: No Cerebrovascular Accident: Yes (TIA) Diabetes: No Diminished Hearing: No Endocrine: No Glaucoma: Yes Genitourinary: No Hiatal Hernia: Yes Musculoskeletal: No Neurologic: Yes (MEMORY PROBLEMS SINCE TIA) Psychiatric: No Reproductive: No Respiratory: No Immunizations Current: Yes Radiation Therapy: No ?: Not Past Surgical History Abdominal Surgery: No Cardiac Surgery: No Ear Surgery: Yes Endocrine Surgery: No Eye Surgery: Yes Genitourinary Surgery: No Gynecologic Surgery: No Hysterectomy: Yes Oral Surgery: Yes Thoracic Surgery: No Other Surgery: Yes (PROLAPSED RECTUM) Social History Alcohol Use: No (PREVIOUS ALCOHOLIC) Tobacco Use: No (35 YRS AGO ) Substance Use: No Allergies-Medications (Allergen,Severity, Reaction): Coded Allergies: clarithromycin (Unverified Allergy, Severe, SOB, 10/13/17) doxycycline (Unverified Allergy, Severe, SOB, 10/13/17) ibuprofen (Unverified Allergy, Severe, SOB, 10/13/17) minocycline (Unverified Allergy, Severe, SOB, 10/13/17) penicillin G (Unverified Allergy, Severe, SOB, 10/13/17) tigecycline (Unverified Allergy, Severe, SOB, 10/13/17) Beef Containing Products (Unverified Allergy, Unknown, "CAN'T DIGEST IT", 10/13/17) Reported Meds & Prescriptions Reported Meds & Active Scripts Active Ciprofloxacin (Ciprofloxacin HCl) 500 Mg Tab 500 Mg PO BID Reported Mirtazapine 30 Mg Tab 30 Mg PO HS Sertraline (Sertraline HCl) 25 Mg Tab 25 Mg PO DAILY Metoprolol Succinate ER 24 HR (Metoprolol Succinate) 25 Mg Tab 25 Mg PO DAILY Crestor (Rosuvastatin Calcium) 10 Mg Tab 10 Mg PO DAILY Stool Softener (Docusate Sodium) 50 Mg Capsule 100 Mg PO DAILY Ferrous Sulfate 325 Mg (65 Mg Iron) Tablet 325 Mg PO DAILY Review of Systems ROS Limitations: Altered Mental Status Physical Exam Narrative GENERAL: Well-developed elderly white female patient currently in mild distress. Awake, alert 3. However, she is not sure what happened last night. SKIN: Focused skin assessment warm/dry. HEAD: Atraumatic. Normocephalic. EYES: Pupils equal and round. No scleral icterus. No injection or drainage. ENT: No nasal bleeding or discharge. Mucous membranes pink and moist. NECK: Trachea midline. No JVD. CARDIOVASCULAR: Regular rate and rhythm. No murmur appreciated. RESPIRATORY: No accessory muscle use. Clear to auscultation. Breath sounds equal bilaterally. GASTROINTESTINAL: Abdomen soft, non-tender, nondistended. Hepatic and splenic margins not palpable. There is a notable rectal prolapse with small amount of blood within her underwear as well. MUSCULOSKELETAL: No obvious deformities. No clubbing. No cyanosis. No edema. NEUROLOGICAL: Awake and alert. No obvious cranial nerve deficits. Motor grossly within normal limits. Normal speech. PSYCHIATRIC: Appropriate mood and affect; insight and judgment normal. Data Data Last Documented VS Vital Signs Date Time Temp Pulse Resp B/P (MAP) Pulse Ox O2 Delivery O2 Flow Rate FiO2 10/13/17 09:10 98.5 113 18 133/86 (102) 98 Room Air Orders Orders Complete Blood Count With Diff (10/13/17 09:16) Comprehensive Metabolic Panel (10/13/17 09:16) Prothrombin Time / Inr (Pt) (10/13/17 09:16) Act Partial Throm Time (Ptt) (10/13/17 09:16) Urinalysis - C+S If Indicated (10/13/17 09:16) Ct Brain W/O Iv Contrast(Rout) (10/13/17 09:16) Blood Glucose (10/13/17 09:16) Ecg Monitoring (10/13/17 09:16) Iv Access Insert/Monitor (10/13/17 09:16) Oximetry (10/13/17 09:16) Sodium Chloride 0.9% Flush (Ns Flush) (10/13/17 09:30) Urine Culture (10/13/17 10:55) Lactic Acid Sepsis Protocol (10/13/17 12:02) Chest, Single Ap (10/13/17 12:05) Sodium Chlorid 0.9% 500 Ml Inj (Ns 500 M (10/13/17 12:15) Labs Laboratory Tests Test 10/13/17 09:20 10/13/17 10:55 10/13/17 12:05 White Blood Count 16.3 TH/MM3 Red Blood Count 4.14 MIL/MM3 Hemoglobin 13.1 GM/DL Hematocrit 37.4 % Mean Corpuscular Volume 90.2 FL Mean Corpuscular Hemoglobin 31.7 PG Mean Corpuscular Hemoglobin Concent 35.2 % Red Cell Distribution Width 13.8 % Platelet Count 322 TH/MM3 Mean Platelet Volume 7.4 FL Neutrophils (%) (Auto) 85.2 % Lymphocytes (%) (Auto) 4.3 % Monocytes (%) (Auto) 6.6 % Eosinophils (%) (Auto) 2.8 % Basophils (%) (Auto) 1.1 % Neutrophils # (Auto) 13.9 TH/MM3 Lymphocytes # (Auto) 0.7 TH/MM3 Monocytes # (Auto) 1.1 TH/MM3 Eosinophils # (Auto) 0.5 TH/MM3 Basophils # (Auto) 0.2 TH/MM3 CBC Comment DIFF FINAL Differential Comment Prothrombin Time 11.2 SEC Prothromb Time International Ratio 1.1 RATIO Activated Partial Thromboplast Time 23.5 SEC Blood Urea Nitrogen 18 MG/DL Creatinine 0.73 MG/DL Random Glucose 100 MG/DL Total Protein 6.5 GM/DL Albumin 3.1 GM/DL Calcium Level 8.6 MG/DL Alkaline Phosphatase 75 U/L Aspartate Amino Transf (AST/SGOT) 26 U/L Alanine Aminotransferase (ALT/SGPT) 26 U/L Total Bilirubin 0.3 MG/DL Sodium Level 143 MEQ/L Potassium Level 4.1 MEQ/L Chloride Level 108 MEQ/L Carbon Dioxide Level 27.6 MEQ/L Anion Gap 7 MEQ/L Estimat Glomerular Filtration Rate 76 ML/MIN Urine Color YELLOW Urine Turbidity CLEAR Urine pH 5.0 Urine Specific [place] 1.020 Urine Protein NEG mg/dL Urine Glucose (UA) NEG mg/dL Urine Ketones NEG mg/dL Urine Occult Blood NEG Urine Nitrite NEG Urine Bilirubin NEG Urine Urobilinogen LESS THAN 2.0 MG/DL Urine Leukocyte Esterase NEG Urine RBC 3 /hpf Urine WBC 1 /hpf Urine Squamous Epithelial Cells <1 /hpf Urine Bacteria RARE /hpf Urine Hyaline Casts 4 /lpf Microscopic Urinalysis Comment CATH-CULTURE IND Lactic Acid Level 1.2 mmol/L MDM Medical Decision Making Medical Screen Exam Complete: Yes Emergency Medical Condition: Yes Medical Record Reviewed: Yes Interpretation(s) Laboratory Tests Test 10/13/17 09:20 10/13/17 10:55 10/13/17 12:05 White Blood Count 16.3 TH/MM3 (4.0-11.0) Neutrophils (%) (Auto) 85.2 % (16.0-70.0) Lymphocytes (%) (Auto) 4.3 % (9.0-44.0) Neutrophils # (Auto) 13.9 TH/MM3 (1.8-7.7) Lymphocytes # (Auto) 0.7 TH/MM3 (1.0-4.8) Monocytes # (Auto) 1.1 TH/MM3 (0-0.9) Eosinophils # (Auto) 0.5 TH/MM3 (0-0.4) Activated Partial Thromboplast Time 23.5 SEC (24.3-30.1) Albumin 3.1 GM/DL (3.4-5.0) Chloride Level 108 MEQ/L (98-107) Estimat Glomerular Filtration Rate 76 ML/MIN (>89) Urine Bacteria RARE /hpf (NONE) Last 24 hours Impressions Chest X-Ray 10/13/17 1205 Signed Impressions: Service Date/Time: September 12:09 - CONCLUSION: 1. Left apical density. Outpatient CT chest. 2. No acute cardiopulmonary process. Chemo Bonner MD Head CT 10/13/17 0916 Signed Impressions: Service Date/Time: September 09:39 - CONCLUSION: 1. Marked ventriculomegaly suggesting severe central cerebral atrophy versus hydrocephalus. Clinical correlation is recommended. 2. Severe periventricular and subcortical white matter small vessel ischemic changes bilaterally. 3. No acute hemorrhage, midline shift or extra-axial fluid collections. 4. Mucosal thickening involving the left sphenoid sinus. Gordon Cain MD Differential Diagnosis Rectal prolapse, fall from bed, disorientation: Rule out anemia versus sepsis versus metabolic issues versus intracranial injuries Narrative Course Rectal prolapse was reduced by me in the ER. IV fluids were given the ER. Lab work returned showing leukocytosis which the patient had during the last admission as well. She does not have UTI. Case was discussed with Dr. Mason who is not planning on performing surgery right away, and now that the rectal prolapse is reduced, is not emergency. He states that he is planning on operating on her rectal prolapse but probably next week. At this point, patient 's son had talked to Dr. Mason, and is fairly concerned about how she is doing at home, having falls, disoriented, and does not think that she will make a good candidate for coming home, is refusing to take her back. My plan would be to admit her at this point for further evaluation altered mental status and falls. I have talked to Dr. Titus, feels that this is more of a social issue, he states he will talk to case management regarding the case and try to get the patient released back home. He agrees to take on care at this point to make disposition. Procedures Procedure Narrative Rectal prolapse reduction: Patient is placed in a lateral decubitus position and sugar was sprinkled on the rectal prolapse. The rectal prolapse was pushed back in by me without issues. Patient tolerated procedure well. Diagnosis Primary Impression: Rectal prolapse Additional Impression: Altered mental status Condition: Stable Jazmine Zee MD Oct 13, 2017 09:21
[2017-10-13] MEDS ORDERED: SODIUM CHLORIDE 0.9% FLUSH 10 ML FLUSH IV FLUSH PRN ×2 (09:30→14:15)
[2017-10-13 09:41] LABS: AUTOMATED NEUTROPHIL # 13.9 TH/MM3 (1.8-7.7); BASOPHIL # 0.2 TH/MM3 (0-0.2); BASOPHIL % 1.1 % (0.0-2.0); EOSINOPHIL # 0.5 TH/MM3 (0-0.4); EOSINOPHIL % 2.8 % (0.0-4.0); HEMATOCRIT 37.4 % (35.0-46.0); HEMOGLOBIN 13.1 GM/DL (11.6-15.3); LYMPH % 4.3 % (9.0-44.0); LYMPHOCYTE # 0.7 TH/MM3 (1.0-4.8); MEAN CELL VOLUME 90.2 FL (80.0-100.0); MEAN CORPUSCULAR HEMOGLOBIN 31.7 PG (27.0-34.0); MEAN CORPUSCULAR HGB CONC 35.2 % (32.0-36.0); MEAN PLATELET VOLUME 7.4 FL (7.0-11.0); MONO % 6.6 % (0.0-8.0); MONOCYTE # 1.1 TH/MM3 (0-0.9); NEUT % 85.2 % (16.0-70.0); PLATELET COUNT 322 TH/MM3 (150-450); RED BLOOD COUNT 4.14 MIL/MM3 (4.00-5.30); RED CELL DISTRIBUTION WIDTH 13.8 % (11.6-17.2); WHITE BLOOD COUNT 16.3 TH/MM3 (4.0-11.0)
[2017-10-13] MEDS ORDERED: MIRT30TA PO (09:44)
[2017-10-13 09:50] LABS: INTERNATIONAL NORMALIZED RATIO 1.1 RATIO; PROTHROMBIN TIME - PATIENT 11.2 SEC (9.8-11.6)
[2017-10-13 09:56] LABS: ALBUMIN 3.1 GM/DL (3.4-5.0); AST (GOT) 26 U/L (15-37); BICARBONATE 27.6 MEQ/L (21.0-32.0); BLOOD UREA NITROGEN 18 MG/DL (7-18); CALCIUM 8.6 MG/DL (8.5-10.1); CHLORIDE 108 MEQ/L (98-107); CREATININE 0.73 MG/DL (0.50-1.00); GLOMERULAR FILTRATION RATE 76 ML/MIN (>89); GLUCOSE,RANDOM 100 MG/DL (74-106); SODIUM (NA) 143 MEQ/L (136-145)
[2017-10-13 09:57] LABS: ALT (GPT) 26 U/L (10-53)
[2017-10-13 09:59] LABS: ALKALINE PHOSPHATASE 75 U/L (45-117); TOTAL BILIRUBIN ADULT 0.3 MG/DL (0.2-1.0); TOTAL PROTEIN 6.5 GM/DL (6.4-8.2)
--- NOTE | 2017-10-13 10:05 | RADRPT ---
EXAM DATE/TIME: 10/13/2017 09:39 [facility] COMPARISON: No previous studies available for comparison. INDICATIONS : Altered mental status, found on floor with rectal bleeding. RADIATION DOSE: 56.35 CTDIvol (mGy) MEDICAL HISTORY : Hypertension. Cerebrovascular disease. SURGICAL HISTORY : None. ENCOUNTER: Initial ACUITY: 1 day PAIN SCALE: 0/10 LOCATION: cranial TECHNIQUE: Multiple contiguous axial images were obtained of the head. Using automated exposure control and adj ustment of the mA and/or kV according to patient size, radiation dose was kept as low as reasonably a chievable to obtain optimal diagnostic quality images. DICOM format image data is available electro nically for review and comparison. FINDINGS: Marked ventriculomegaly is noted suggesting severe central cerebral atrophy versus hydrocephalus. Cli nical correlation is recommended. Severe periventricular and subcortical white matter small vessel is chemic changes are noted bilaterally. There is no acute infarct, acute hemorrhage, midline shift or e xtra-axial fluid collections. There is mucosal thickening involving the left sphenoid sinus. CONCLUSION: 1. Marked ventriculomegaly suggesting severe central cerebral atrophy versus hydrocephalus. Clinical correlation is recommended. 2. Severe periventricular and subcortical white matter small vessel ischemic changes bilaterally. 3. No acute hemorrhage, midline shift or extra-axial fluid collections. 4. Mucosal thickening involving the left sphenoid sinus. Gordon Cain MD on October 13, 2017 at 10:00 Board Certified Radiologist. This report was verified electronically.
[2017-10-13 11:38] LABS: BACTERIA, URINE RARE /hpf; BILIRUBIN, URINE NEG (NEG); BLOOD, URINE NEG (NEG); GLUCOSE,URINE NEG (NEG); HYALINE CAST, URINE 4 /lpf (RARE); KETONE, URINE NEG (NEG); NITRITE,URINE NEG (NEG); SQUAMOUS EPITHELIAL CELL URINE <1 /hpf (0-5); URINE COLOR YELLOW (YELLW/STRAW); URINE LEUKOCYTE ESTERASE NEG (NEG)
[2017-10-13] MEDS ORDERED: SODIUM CHLORID 0.9% 500 ML INJ 500 ML IV ONE (12:15)
--- NOTE | 2017-10-13 12:19 | RADRPT ---
EXAM DATE/TIME: 10/13/2017 12:09 [facility] COMPARISON: CHEST SINGLE AP, May 06, 2016, 16:45. INDICATIONS : Palpitations MEDICAL HISTORY : Hypercholesterolemia. Hiatal hernia. TIA. SURGICAL HISTORY : Hysterectomy. ENCOUNTER: Initial ACUITY: 1 day PAIN SCORE: 0/10 LOCATION: chest FINDINGS: A single view of the chest demonstrates the lungs to be symmetrically aerated without evidence of mas s, infiltrate or effusion. There is left apical density. The cardiomediastinal contours are unremark able. Tortuous thoracic aorta. Osseous structures are intact. The degenerative changes left shoulder . CONCLUSION: 1. Left apical density. Outpatient CT chest. 2. No acute cardiopulmonary process. Chemo Bonner MD on October 13, 2017 at 12:16 Board Certified Radiologist. This report was verified electronically.
--- NOTE | 2017-10-13 13:05 | HHI.PR ---
Addendum to Inpatient Note Addendum Reason: Additional Documentation Additional Information I spoke to patient's son. He notes he spoke with Dr. Mason and was under the impression that he was going to admit her to do the surgery on the rectal prolapse. Son notes that they cannot handle her at home any longer with the prolapse (pain, picking at the area, poor hygeine and skin care, fecal incontinence, falls, etc). If the prolapse if fixed, they would have a better ability to care for her at home in a more sanitary environment. Thu Woody MD Oct 13, 2017 13:05
--- NOTE | 2017-10-13 13:57 | HHI.HP ---
HPI Service [facility] Primary Care Physician Arnaldo Hassan M.D. Admission Diagnosis Diagnoses: (1) Rectal prolapse Chief Complaint: Rectal prolapse Travel History International Travel<30 Days: No Contact w/Intl Traveler <30 Da: No Traveled to Known Affected Are: No History of Present Illness 87-year-old female with a known history of rectal prolapse was recently discharged from [facility] on 10/12/17 after a 2 day stay was brought back to the hospital for readmission and evaluation again for rectal prolapse. During her recent admission, colorectal surgery was consulted and at a time, has decided patient would have an elective outpatient surgery. After reviewing Dr. Mason's consult note it appears that patient has for many years refused to have surgery. I called patient's son, who was very threatening and very aggressive and I would add quite rude. He states, he will take legal actions if his MOM was to be discharged without undergoing repair. I told him , my intentions were to admit his MOM for a 23hours observation and consult Colorectal surgery. I also told him that, before seeing his MOM, I have talked to manager of case to see how the patient would meet criteria for discharge to Rehab facility; unfortunately she did not meet inpatient admission criteria.The son spoke about the fact that he had connection to the [employer] of [facility]. He also demanded to speak to the ED physician, however I told him that Dr Anthony was expecting a trauma .The case was also discussed with Thu Becker, who stated she had spoken to the patient's son.Per Dr Morrison ' note, the family could no longer handle the patient at home any longer secondary to multiple complications associated with the current prolapse of the patient; mainly pain, picking at the area, poor hygiene and skin care, fecal incontinence as well as fall. Review of Systems Except as stated in HPI: all other systems reviewed are Neg Past Family Social History Past Medical History TIA, Hiatal hernia Rectal prolapse Hyperlipidemia Past Surgical History Urinary surgery Hysterectomy Oral surgery Reported Medications Ciprofloxacin (Ciprofloxacin HCl) 500 Mg Tab 500 Mg PO BID Reported Mirtazapine 30 Mg Tab 30 Mg PO HS Sertraline (Sertraline HCl) 25 Mg Tab 25 Mg PO DAILY Metoprolol Succinate ER 24 HR (Metoprolol Succinate) 25 Mg Tab 25 Mg PO DAILY Crestor (Rosuvastatin Calcium) 10 Mg Tab 10 Mg PO DAILY Stool Softener (Docusate Sodium) 50 Mg Capsule 100 Mg PO DAILY Ferrous Sulfate 325 Mg (65 Mg Iron) Tablet 325 Mg PO DAILY Allergies: Coded Allergies: clarithromycin (Unverified Allergy, Severe, SOB, 10/13/17) doxycycline (Unverified Allergy, Severe, SOB, 10/13/17) ibuprofen (Unverified Allergy, Severe, SOB, 10/13/17) minocycline (Unverified Allergy, Severe, SOB, 10/13/17) penicillin G (Unverified Allergy, Severe, SOB, 10/13/17) tigecycline (Unverified Allergy, Severe, SOB, 10/13/17) Beef Containing Products (Unverified Allergy, Unknown, "CAN'T DIGEST IT", 10/13/17) Family History Parkinson's, mother had congestive heart failure. Social History Stopped smoking 35 years, no significant alcohol use. Physical Exam Vital Signs Vital Signs Date Time Temp Pulse Resp B/P (MAP) Pulse Ox O2 Delivery O2 Flow Rate FiO2 10/13/17 09:10 98.5 113 18 133/86 (102) 98 Room Air Physical Exam GENERAL: This is a well-nourished, well-developed patient, in no apparent distress. SKIN: No rashes, ecchymoses or lesions. Cool and dry. HEAD: Atraumatic. Normocephalic. No temporal or scalp tenderness. EYES: Pupils equal round and reactive. Extraocular motions intact. No scleral icterus. No injection or drainage. ENT: Nose without bleeding, purulent drainage or septal hematoma. Throat without erythema, tonsillar hypertrophy or exudate. Uvula midline. Airway patent. NECK: Trachea midline. No JVD or lymphadenopathy. Supple, nontender, no meningeal signs. CARDIOVASCULAR: Regular rate and rhythm without murmurs, gallops, or rubs. RESPIRATORY: Clear to auscultation. Breath sounds equal bilaterally. No wheezes , rales, or rhonchi. GASTROINTESTINAL: Abdomen soft, non-tender, nondistended. No hepato-splenomegaly , or palpable masses. No guarding. MUSCULOSKELETAL: Extremities without clubbing, cyanosis, or edema. No joint tenderness, effusion, or edema noted. No calf tenderness. Negative Homans sign bilaterally. NEUROLOGICAL: Awake and alert. Cranial nerves II through XII intact. Motor and sensory grossly within normal limits. Five out of 5 muscle strength in all muscle groups. Normal speech. Laboratory Laboratory Tests Test 10/13/17 09:20 10/13/17 10:55 10/13/17 12:05 White Blood Count 16.3 Red Blood Count 4.14 Hemoglobin 13.1 Hematocrit 37.4 Mean Corpuscular Volume 90.2 Mean Corpuscular Hemoglobin 31.7 Mean Corpuscular Hemoglobin Concent 35.2 Red Cell Distribution Width 13.8 Platelet Count 322 Mean Platelet Volume 7.4 Neutrophils (%) (Auto) 85.2 Lymphocytes (%) (Auto) 4.3 Monocytes (%) (Auto) 6.6 Eosinophils (%) (Auto) 2.8 Basophils (%) (Auto) 1.1 Neutrophils # (Auto) 13.9 Lymphocytes # (Auto) 0.7 Monocytes # (Auto) 1.1 Eosinophils # (Auto) 0.5 Basophils # (Auto) 0.2 CBC Comment DIFF FINAL Differential Comment Prothrombin Time 11.2 Prothromb Time International Ratio 1.1 Activated Partial Thromboplast Time 23.5 Blood Urea Nitrogen 18 Creatinine 0.73 Random Glucose 100 Total Protein 6.5 Albumin 3.1 Calcium Level 8.6 Alkaline Phosphatase 75 Aspartate Amino Transf (AST/SGOT) 26 Alanine Aminotransferase (ALT/SGPT) 26 Total Bilirubin 0.3 Sodium Level 143 Potassium Level 4.1 Chloride Level 108 Carbon Dioxide Level 27.6 Anion Gap 7 Estimat Glomerular Filtration Rate 76 Urine Color YELLOW Urine Turbidity CLEAR Urine pH 5.0 Urine Specific [place] 1.020 Urine Protein NEG Urine Glucose (UA) NEG Urine Ketones NEG Urine Occult Blood NEG Urine Nitrite NEG Urine Bilirubin NEG Urine Urobilinogen LESS THAN 2.0 Urine Leukocyte Esterase NEG Urine RBC 3 Urine WBC 1 Urine Squamous Epithelial Cells <1 Urine Bacteria RARE Urine Hyaline Casts 4 Microscopic Urinalysis Comment CATH-CULTURE IND Lactic Acid Level 1.2 Date/Time Source Procedure Growth Status 10/13/17 10:55 Urine Catheterized Urine Urine Culture Pending Received Result Diagram: 10/13/17 0920 10/13/17 0920 Imaging Last Impressions Chest X-Ray 10/13/17 1205 Signed Impressions: Service Date/Time: September 12:09 - CONCLUSION: 1. Left apical density. Outpatient CT chest. 2. No acute cardiopulmonary process. Chemo Bonner MD Head CT 10/13/17 0916 Signed Impressions: Service Date/Time: September 09:39 - CONCLUSION: 1. Marked ventriculomegaly suggesting severe central cerebral atrophy versus hydrocephalus. Clinical correlation is recommended. 2. Severe periventricular and subcortical white matter small vessel ischemic changes bilaterally. 3. No acute hemorrhage, midline shift or extra-axial fluid collections. 4. Mucosal thickening involving the left sphenoid sinus. Gordon Cain MD Septic Shock Reassessment Septic shock perfusion: reassessment completed Caprini VTE Risk Assessment Caprini VTE Risk Assessment: Mod/High Risk (score >= 2) Caprini Risk Assessment Model Point Value = 1 Point Value = 2 Point Value = 3 Point Value = 5 Age 41-60 Minor surgery BMI > 25 kg/m2 Swollen legs Varicose veins or History of unexplained or recurrent spontaneous Oral contraceptives or hormone replacement Sepsis (< 1 month) Serious lung disease, including pneumonia (< 1 month) Abnormal pulmonary function Acute myocardial infarction Congestive heart failure (< 1 month) History of inflammatory bowel disease Medical patient at bed rest Age 61-74 Arthroscopic surgery Major open surgery (> 45 min) Laparoscopic surgery (> 45 min) Malignancy Confined to bed (> 72 hours) Immobilizing plaster cast Central venous access Age >= 75 History of VTE Family history of VTE Factor V Leiden Prothrombin [id number] Lupus anticoagulant Anticardiolipin antibodies Elevated serum homocysteine Heparin-induced thrombocytopenia Other congenital or acquired thrombophilia Stroke (< 1 month) Elective arthroplasty Hip, pelvis, or leg fracture Acute spinal cord injury (< 1 month) Prophylaxis Regimen Total Risk Factor Score Risk Level Prophylaxis Regimen 0-1 Low Early ambulation 2 Moderate Order ONE of the following: *Sequential Compression Device (SCD) *Heparin 5000 units SQ BID 3-4 Higher Order ONE of the following medications: *Heparin 5000 units SQ TID *Enoxaparin/Lovenox 40 mg SQ daily (WT < 150 kg, CrCl > 30 mL/min) *Enoxaparin/Lovenox 30 mg SQ daily (WT < 150 kg, CrCl > 10-29 mL/min) *Enoxaparin/Lovenox 30 mg SQ BID (WT < 150 kg, CrCl > 30 mL/min) AND/OR *Sequential Compression Device (SCD) 5 or more Highest Order ONE of the following medications: *Heparin 5000 units SQ TID (Preferred with Epidurals) *Enoxaparin/Lovenox 40 mg SQ daily (WT < 150 kg, CrCl > 30 mL/min) *Enoxaparin/Lovenox 30 mg SQ daily (WT < 150 kg, CrCl > 10-29 mL/min) *Enoxaparin/Lovenox 30 mg SQ BID (WT < 150 kg, CrCl > 30 mL/min) AND *Sequential Compression Device (SCD) Assessment and Plan Problem List: (1) Rectal prolapse ICD Code: K62.3 - Rectal prolapse Status: Acute Assessment and Plan 87-year-old female with Rectal prolapse Consult colorectal surgery, Dr Mason for evaluation for possible repair Pain management accordingly Urinary tract infection Continue with Cipro Leukocytosis Likely secondary to above infectious process versus rectal prolapse, continue to monitor Aortic stenosis, Hypertension, History of SVT - Resume metoprolol Generalized weakness PT consult to treat and eval Code Status Full code Discussed Condition With Patient, Patient's son via phone call, HERNAN Becker MD, Eric MD Oct 13, 2017 13:57
[2017-10-13] MEDS ORDERED: ACETAMINOPHEN/HYDROcodone 325 MG/5 MG TAB PO PRN (14:15)
[2017-10-13] MEDS ORDERED: NALOXONE HCL 0.4 MG/ML AMP IV PUSH PRN (14:15)
[2017-10-13] MEDS ORDERED: ONDANSETRON HCL 4 MG/2 ML VIAL IVP PRN (14:15)
[2017-10-13] MEDS ORDERED: ACETAMINOPHEN 325 MG TAB PO PRN ×2 (14:15)
[2017-10-13 15:05] VITALS: BP 110/56; PULSE 113; RESP 19; TEMP 98.1; O2SAT 97
[2017-10-13] MEDS ORDERED: PILL SPLITTER OTHER PRN (15:15)
[2017-10-13 17:25] VITALS: BP 114/60; PULSE 104; RESP 18; TEMP 98; O2SAT 95
[2017-10-13 19:15] VITALS: BP 133/63; PULSE 58; RESP 16; TEMP 96; O2SAT 98
[2017-10-13] MEDS: MIRTAZAPINE 15 MG TAB PO SCH (21:45)
[2017-10-13] MEDS: SODIUM CHLORIDE 0.9% FLUSH 10 ML FLUSH IV FLUSH SCH (21:45)
[2017-10-13] MEDS: CIPROFLOXACIN 500 MG TAB PO SCH (21:45)
--- NOTE | 2017-10-13 23:25 | HHI.PR ---
Subjective Remarks C/R surg Pt known from recent adm for prolapse c/o additional prolapse/BRBPR decr PO present Rx for UTI Objective - Vital Signs Date Time Temp Pulse Resp B/P (MAP) Pulse Ox O2 Delivery O2 Flow Rate FiO2 10/13/17 19:15 96.0 58 16 133/63 (86) 98 10/13/17 15:05 Room Air Result Diagram: 10/13/17 0920 10/13/17 0920 Objective Remarks PE alert Abd - soft, min tympany Rectal - prolapse reduced in ER, min BRB A/P Assessment and Plan Imp: Progressive disability from prolapse will prep gently , and check rectosigmoid for any other bleeding source plan repair of prolapse, after bowel prep Blair Mason MD Oct 13, 2017 23:25
[2017-10-13] MEDS ORDERED: MAGNESIUM CITRATE SOLN 300 ML BTL PO ONE (23:30)
[2017-10-14 01:19] VITALS: BP 142/71; PULSE 123; RESP 16; TEMP 98; O2SAT 98
[2017-10-14] MEDS ORDERED: MAGNESIUM CITRATE SOLN 300 ML BTL PO PRN (04:00)
[2017-10-14 07:36] LABS: AUTOMATED NEUTROPHIL # 8.5 TH/MM3 (1.8-7.7); BASOPHIL # 0.1 TH/MM3 (0-0.2); EOSINOPHIL # 1.8 TH/MM3 (0-0.4); EOSINOPHIL % 14.9 % (0.0-4.0); HEMATOCRIT 41.7 % (35.0-46.0); HEMOGLOBIN 13.9 GM/DL (11.6-15.3); LYMPH % 8.6 % (9.0-44.0); LYMPHOCYTE # 1.1 TH/MM3 (1.0-4.8); MEAN CELL VOLUME 92.2 FL (80.0-100.0); MEAN CORPUSCULAR HEMOGLOBIN 30.7 PG (27.0-34.0); MEAN CORPUSCULAR HGB CONC 33.2 % (32.0-36.0); MEAN PLATELET VOLUME 7.3 FL (7.0-11.0); MONO % 6.3 % (0.0-8.0); MONOCYTE # 0.8 TH/MM3 (0-0.9); NEUT % 69.2 % (16.0-70.0); PLATELET COUNT 321 TH/MM3 (150-450); RED BLOOD COUNT 4.52 MIL/MM3 (4.00-5.30); WHITE BLOOD COUNT 12.3 TH/MM3 (4.0-11.0)
[2017-10-14 08:00] VITALS: BP 112/68; PULSE 96; RESP 20; TEMP 97.9; O2SAT 99
[2017-10-14 08:07] LABS: ALBUMIN 3.3 GM/DL (3.4-5.0); AST (GOT) 31 U/L (15-37); BICARBONATE 26.7 MEQ/L (21.0-32.0); BLOOD UREA NITROGEN 12 MG/DL (7-18); CALCIUM 9.3 MG/DL (8.5-10.1); CHLORIDE 106 MEQ/L (98-107); CREATININE 0.84 MG/DL (0.50-1.00); GLOMERULAR FILTRATION RATE 64 ML/MIN (>89); GLUCOSE,RANDOM 86 MG/DL (74-106); SODIUM (NA) 141 MEQ/L (136-145)
[2017-10-14 08:12] LABS: ALKALINE PHOSPHATASE 76 U/L (45-117); ALT (GPT) 28 U/L (10-53); TOTAL BILIRUBIN ADULT 0.4 MG/DL (0.2-1.0); TOTAL PROTEIN 6.9 GM/DL (6.4-8.2)
[2017-10-14] MEDS: CIPROFLOXACIN 500 MG TAB PO SCH ×2 (10:36→21:41)
[2017-10-14] MEDS: SERTRALINE HCL 50 MG TAB PO SCH (10:36)
[2017-10-14] MEDS: ATORVASTATIN 20 MG TAB PO SCH (10:37)
[2017-10-14] MEDS: SODIUM CHLORIDE 0.9% FLUSH 10 ML FLUSH IV FLUSH SCH ×2 (10:37→21:44)
[2017-10-14] MEDS: METOPROLOL SUCCINATE 25 MG EXTENDED RELEASE TAB PO SCH (10:37)
[2017-10-14] MEDS ORDERED: FERROUS SULFATE 325 MG (65 MG ELEMENTAL IRON) TAB PO SCH (12:00)
[2017-10-14 12:27] VITALS: BP 110/62; PULSE 72; RESP 18; TEMP 98.9; O2SAT 98
--- NOTE | 2017-10-14 15:19 | HHI.PR ---
Subjective Remarks The patient is in the chair. She appears in not acute distress at this time. She has a discomfort with her prolapse. Eating fairly well has decreased appetite. No nausea vomiting no diarrhea constipation. Last bowel movement was 2 days ago. No fever or chills. Objective Vitals Vital Signs Date Time Temp Pulse Resp B/P (MAP) Pulse Ox O2 Delivery O2 Flow Rate FiO2 10/14/17 12:27 98.9 72 18 110/62 (78) 98 10/14/17 08:00 97.9 96 20 112/68 (83) 99 10/14/17 01:19 98.0 123 16 142/71 (94) 98 10/13/17 19:15 96.0 58 16 133/63 (86) 98 10/13/17 17:25 98.0 104 18 114/60 (78) 95 10/13/17 16:45 I/O 10/13/17 10/13/17 10/13/17 10/14/17 10/14/17 10/14/17 07:00 15:00 23:00 07:00 15:00 23:00 Intake Total 500 ml Balance 500 ml Intake IV Total 500 ml Result Diagram: 10/14/17 0635 10/14/17 0635 Imaging Last Impressions Chest X-Ray 10/13/17 1205 Signed Impressions: Service Date/Time: September 12:09 - CONCLUSION: 1. Left apical density. Outpatient CT chest. 2. No acute cardiopulmonary process. Chemo Bonner MD Head CT 10/13/17 0916 Signed Impressions: Service Date/Time: September 09:39 - CONCLUSION: 1. Marked ventriculomegaly suggesting severe central cerebral atrophy versus hydrocephalus. Clinical correlation is recommended. 2. Severe periventricular and subcortical white matter small vessel ischemic changes bilaterally. 3. No acute hemorrhage, midline shift or extra-axial fluid collections. 4. Mucosal thickening involving the left sphenoid sinus. Gordon Cain MD Objective Remarks GENERAL: This is a well-nourished, well-developed patient, in no apparent distress. SKIN: No rashes, ecchymoses or lesions. Cool and dry. HEAD: Atraumatic. Normocephalic. No temporal or scalp tenderness. EYES: Pupils equal round and reactive. Extraocular motions intact. No scleral icterus. No injection or drainage. ENT: Nose without bleeding, purulent drainage or septal hematoma. Throat without erythema, tonsillar hypertrophy or exudate. Uvula midline. Airway patent. NECK: Trachea midline. No JVD or lymphadenopathy. Supple, nontender, no meningeal signs. CARDIOVASCULAR: Regular rate and rhythm without murmurs, gallops, or rubs. RESPIRATORY: Clear to auscultation. Breath sounds equal bilaterally. No wheezes , rales, or rhonchi. GASTROINTESTINAL: Abdomen soft, non-tender, nondistended. No hepato-splenomegaly , or palpable masses. No guarding. MUSCULOSKELETAL: Extremities without clubbing, cyanosis, or edema. No joint tenderness, effusion, or edema noted. No calf tenderness. Negative Homans sign bilaterally. NEUROLOGICAL: Awake and alert. Cranial nerves II through XII intact. Motor and sensory grossly within normal limits. Five out of 5 muscle strength in all muscle groups. Normal speech. A/P Problem List: (1) Rectal prolapse ICD Code: K62.3 - Rectal prolapse Status: Acute Assessment and Plan 87-year-old female with Rectal prolapse. Progressive disability from prolapse Consult colorectal surgery, Dr Mason for evaluation for possible repair Pain management accordingly Bowel prep plan repair of prolapse, after bowel prep for Dr. Mason colorectal surgeon Urinary tract infection Continue with Cipro Leukocytosis Likely secondary to above infectious process versus rectal prolapse, continue to monitor Aortic stenosis, Hypertension, History of SVT - Resume metoprolol Generalized weakness PT consult to treat and eval Code Status Full code Discussed Condition With Patient, nurse Discharge when improved and cleared by colorectal surgeon Dali Meyers MD Oct 14, 2017 15:19
[2017-10-14] MEDS: CLOTRIMAZOLE 10 MG TROCHE BUCCAL SCH ×3 (16:03→21:42)
[2017-10-14 16:31] VITALS: BP 112/62; PULSE 90; RESP 20; TEMP 97.9; O2SAT 97
[2017-10-14] MEDS ORDERED: MIRTA15 PO (16:51)
--- NOTE | 2017-10-14 17:29 | HHI.PR ---
Subjective Remarks C/R surg Pt known from recent adm for prolapse decr PO present Rx for UTI natanael PO Pt's son refused consent for sigmoidoscopy Objective - Vital Signs Date Time Temp Pulse Resp B/P (MAP) Pulse Ox O2 Delivery O2 Flow Rate FiO2 10/14/17 16:31 97.9 90 20 112/62 (79) 97 10/13/17 15:05 Room Air Result Diagram: 10/14/17 0635 10/14/17 0635 Objective Remarks PE alert Abd - soft, min tympany Rectal - prolapse reduced in ER, min BRB bowel prep taken A/P Assessment and Plan Imp: Progressive disability from prolapse will prep gently , and check rectosigmoid for any other bleeding source plan repair of prolapse, after bowel prep - prob Tuesday Blair Quinteros MD Oct 14, 2017 17:29
[2017-10-14 19:38] VITALS: BP 113/66; PULSE 96; RESP 16; TEMP 97.6; O2SAT 99
[2017-10-14] MEDS: MIRTAZAPINE 15 MG TAB PO SCH (21:42)
[2017-10-15 00:55] VITALS: BP 140/74; PULSE 84; RESP 14; TEMP 97.6; O2SAT 95
[2017-10-15] MEDS: diphenhydrAMINE HCL 25 MG CAP PO PRN (01:27)
[2017-10-15 03:54] VITALS: BP 117/57; PULSE 81; RESP 14; TEMP 97.9; O2SAT 98
[2017-10-15] MEDS: CLOTRIMAZOLE 10 MG TROCHE BUCCAL SCH ×5 (06:45→20:23)
[2017-10-15 07:35] VITALS: BP 156/77; PULSE 93; TEMP 97.7; O2SAT 94
[2017-10-15] MEDS ORDERED: LACTATED RINGER'S 1000 ML IV PRN (08:00)
[2017-10-15] MEDS ORDERED: CHLORHEXIDINE GLUCONATE 2 % 1 PACK (2 CLOTHS) TOPICAL PRN (08:00)
[2017-10-15] MEDS ORDERED: METOPROLOL TARTRATE 25 MG TAB PO PRN (08:00)
[2017-10-15] MEDS ORDERED: SODIUM CHLORID 0.9% 500 ML IV PRN (08:00)
[2017-10-15] MEDS ORDERED: POVIDONE IODINE 5% (ANTISEPSIS KIT) 4 APPLICATIONS EACH NARE PRN (08:00)
[2017-10-15] MEDS: SERTRALINE HCL 50 MG TAB PO SCH (09:34)
[2017-10-15] MEDS: SODIUM CHLORIDE 0.9% FLUSH 10 ML FLUSH IV FLUSH SCH ×2 (09:34→20:22)
[2017-10-15] MEDS: CIPROFLOXACIN 500 MG TAB PO SCH (09:34)
[2017-10-15] MEDS: ATORVASTATIN 20 MG TAB PO SCH (09:35)
[2017-10-15] MEDS: METOPROLOL SUCCINATE 25 MG EXTENDED RELEASE TAB PO SCH (09:35)
--- NOTE | 2017-10-15 10:49 | HHI.PR ---
Subjective Remarks Pleasant patient. Denies pain or prolapse at present. 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 Now reduced. Wants repair now. Objective Vital Signs Date Time Temp Pulse Resp B/P (MAP) Pulse Ox O2 Delivery O2 Flow Rate FiO2 10/15/17 07:35 97.7 93 156/77 (103) 94 10/15/17 03:54 97.9 81 14 117/57 (77) 98 10/15/17 00:55 97.6 84 14 140/74 (96) 95 10/14/17 19:38 97.6 96 16 113/66 (82) 99 10/14/17 16:31 97.9 90 20 112/62 (79) 97 10/14/17 12:27 98.9 72 18 110/62 (78) 98 I/O 10/14/17 10/14/17 10/14/17 10/15/17 10/15/17 10/15/17 07:00 15:00 23:00 07:00 15:00 23:00 Intake Total 500 ml 600 ml 50 ml Output Total 2 ml Balance 500 ml 598 ml 50 ml Intake Oral 600 ml 50 ml IV Total 500 ml Output Urine Total 2 ml # Voids 3 # Bowel Movements 3 1 Result Diagram: 10/14/17 0635 10/14/17 0635 Objective Remarks VS-S Abd: soft,non tender Rectum: remains reduced. Assessment and Plan Assessment and Plan Stable For proctopexy in several days Beny Jaffe MD Oct 15, 2017 10:49
--- NOTE | 2017-10-15 11:34 | HHI.PR ---
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 She is in bed appears in not acute distress. No pain at this time. No nausea or vomiting did not have a bowel movement for a couple of days now. No fever or chills. She has no cough. No shortness of breath. Of note patient did fall last night. The patient tells me she did try to get off bed and she did fall. Patient was adviced not to get up without help. Did not hit her head or any bodily parts. There are no bruises on her body. Says she does not have any headaches. No change in vision. No new motor or sensory deficit. She has no pain anywhere else in her body. Fall precautions. Objective Vitals Vital Signs Date Time Temp Pulse Resp B/P (MAP) Pulse Ox O2 Delivery O2 Flow Rate FiO2 10/15/17 07:35 97.7 93 156/77 (103) 94 10/15/17 03:54 97.9 81 14 117/57 (77) 98 10/15/17 00:55 97.6 84 14 140/74 (96) 95 10/14/17 19:38 97.6 96 16 113/66 (82) 99 10/14/17 16:31 97.9 90 20 112/62 (79) 97 10/14/17 12:27 98.9 72 18 110/62 (78) 98 I/O 10/14/17 10/14/17 10/14/17 10/15/17 10/15/17 10/15/17 07:00 15:00 23:00 07:00 15:00 23:00 Intake Total 500 ml 600 ml 50 ml Output Total 2 ml Balance 500 ml 598 ml 50 ml Intake Oral 600 ml 50 ml IV Total 500 ml Output Urine Total 2 ml # Voids 3 # Bowel Movements 3 1 Result Diagram: 10/14/17 0635 10/14/17 0635 Imaging Last Impressions Chest X-Ray 10/13/17 1205 Signed Impressions: Service Date/Time: September 12:09 - CONCLUSION: 1. Left apical density. Outpatient CT chest. 2. No acute cardiopulmonary process. Chemo Bonner MD Head CT 10/13/17 0916 Signed Impressions: Service Date/Time: September 09:39 - CONCLUSION: 1. Marked ventriculomegaly suggesting severe central cerebral atrophy versus hydrocephalus. Clinical correlation is recommended. 2. Severe periventricular and subcortical white matter small vessel ischemic changes bilaterally. 3. No acute hemorrhage, midline shift or extra-axial fluid collections. 4. Mucosal thickening involving the left sphenoid sinus. Gordon Cain MD Objective Remarks GENERAL: This is a well-nourished, well-developed patient, in no apparent distress. SKIN: No rashes, ecchymoses or lesions. Cool and dry. HEAD: Atraumatic. Normocephalic. No lesions, no lacerations. No temporal or scalp tenderness.Bitemporal sunken. EYES: Pupils equal round and reactive. Extraocular motions intact. No scleral icterus. No injection or drainage. ENT: Nose without bleeding, purulent drainage or septal hematoma. Throat without erythema, tonsillar hypertrophy or exudate. Uvula midline. Airway patent. NECK: Trachea midline. No JVD or lymphadenopathy. Supple, nontender, no meningeal signs. CARDIOVASCULAR: Regular rate and rhythm without murmurs, gallops, or rubs. RESPIRATORY: Clear to auscultation. Breath sounds equal bilaterally. No wheezes , rales, or rhonchi. GASTROINTESTINAL: Abdomen soft, non-tender, nondistended. No guarding. MUSCULOSKELETAL: Severe muscle atrophy of hands, upper and lower extremities. Extremities without clubbing, cyanosis, or edema. No joint tenderness, effusion , or edema noted. No calf tenderness. Negative Homans sign bilaterally. NEUROLOGICAL: Awake and alert. Pleasant. Cranial nerves II through XII intact. Motor and sensory grossly within normal limits. Five out of 5 muscle strength in all muscle groups. Normal speech. A/P Problem List: (1) Rectal prolapse ICD Code: K62.3 - Rectal prolapse Status: Acute Assessment and Plan 87-year-old female with: Rectal prolapse. Progressive disability from prolapse Consult colorectal surgery, Dr Mason plan for repair on 10/18/17 Pain management accordingly. Will hold on narcotics as patient at risk of falls. Patient did not receive narcotic. Bowel prep Plan for repair of prolapse, after bowel prep for Dr. Mason colorectal surgeon. Patient and patient son refused sigmoidoscopy however. Discussed with Dr Mason keep patient on ful liquid diet Urinary tract infection treated with Cipro, finish course of antibiotic. Repeat UA is negative. Leukocytosis, improving. Monitor. Likely secondary to above infectious process versus rectal prolapse, continue to monitor Fall from bed per patient did not hit any bodily parts and she has no pain, no lacerations. Fall precautions. PT has evaluated patient recommends home with home health. Patient is at baseline mentation. Fall precautions. Marked ventriculomegaly suggesting severe central cerebral atrophy vs hydrocephalus, severe periventricular and subcortical white matter and small vessel ischemic changes bilateral by CT head. no CT for comparison. Will consult neurology for furhter evaluation Will also check B12, folate and Vit D Severe protein calorie malnutrition. BMI is 16.9 patient with bitemporal sunken , muscle atrophy. Add ensure. Consult sales and service officer. Incidental finding on CXR left apical density. Recommended OP CT follow up imaging ordered for DC. Patient notified. Attempted to talk with her son also regarding follow up however the son doesn't want to hear what I have to say regarding patient medical condition. Aortic stenosis, Hypertension, History of SVT - Resume metoprolol Generalized weakness PT consult to treat and eval Code Status Full code Discussed Condition With Patient, nurse, Dr Mason colorectal surgeon, son by phone Discharge when improved and cleared by colorectal surgeon. Plan for surgery for rectal prolapse on Tuesday10/15/17. Spoke with Dr Mason colorectal surgeon, says non emergent surgery needed and he already spoke with the patient and son. Son told him she is not leaving the hospital until surgery is done and also threatened he will bring her right back to the hospital once she is discharged. Son is also threatening Dr Mason with "calling layers". Note Son called he requests be called by the doctor. Left phone number. I did ask permission from patient regarding talking to her son and releasing health information to her son Gordon who is also POA. Patient is also alert and oriented and able to make decisions on her own. Patient told me id OK to talk with her son regarding her health info. I called son regarding updates on his mother condition however on my attempt to inform him regarding her medical condition and plan son is not willing to listen and he started threatening me says he is calling layers and he hang up the phone. Dali Meyers MD Oct 15, 2017 11:34
[2017-10-15 11:35] LABS: HEMATOCRIT 35.8 % (35.0-46.0); HEMOGLOBIN 11.9 GM/DL (11.6-15.3); MEAN CELL VOLUME 91.9 FL (80.0-100.0); MEAN CORPUSCULAR HEMOGLOBIN 30.5 PG (27.0-34.0); MEAN CORPUSCULAR HGB CONC 33.2 % (32.0-36.0); MEAN PLATELET VOLUME 7.3 FL (7.0-11.0); PLATELET COUNT 305 TH/MM3 (150-450); RED BLOOD COUNT 3.89 MIL/MM3 (4.00-5.30); WHITE BLOOD COUNT 10.4 TH/MM3 (4.0-11.0)
[2017-10-15 11:36] VITALS: BP 105/52; PULSE 80; RESP 16; TEMP 97.8; O2SAT 96
[2017-10-15] MEDS ORDERED: ENALAPRILAT 2.5 MG/2 ML VIAL IV PUSH PRN (11:45)
[2017-10-15 12:06] LABS: BICARBONATE 29.8 MEQ/L (21.0-32.0); CALCIUM 8.1 MG/DL (8.5-10.1); CREATININE 0.87 MG/DL (0.50-1.00)
[2017-10-15 15:00] VITALS: BP 107/57; PULSE 66; RESP 16; TEMP 98.2; O2SAT 92
[2017-10-15] MEDS: NYSTAT/DIPHENHY/LIDO MOUTHWASH (Adult) 120ML SWISH-SWAL SCH ×3 (16:37→20:23)
[2017-10-15 20:16] VITALS: BP 95/56; PULSE 93; RESP 18; TEMP 99; O2SAT 94
[2017-10-15] MEDS: MIRTAZAPINE 15 MG TAB PO SCH (20:22)
[2017-10-16 00:05] VITALS: BP 108/62; PULSE 106; RESP 18; TEMP 99; O2SAT 93
[2017-10-16] MEDS: diphenhydrAMINE HCL 25 MG CAP PO PRN ×2 (00:51→08:24)
[2017-10-16 04:15] VITALS: BP 114/57; PULSE 88; RESP 18; TEMP 97.8; O2SAT 93
[2017-10-16] MEDS: CLOTRIMAZOLE 10 MG TROCHE BUCCAL SCH ×2 (05:58→09:43)
[2017-10-16 08:08] LABS: AUTOMATED NEUTROPHIL # 8.2 TH/MM3 (1.8-7.7); BASOPHIL # 0.1 TH/MM3 (0-0.2); BASOPHIL % 0.9 % (0.0-2.0); EOSINOPHIL # 1.6 TH/MM3 (0-0.4); EOSINOPHIL % 13.2 % (0.0-4.0); HEMATOCRIT 36.9 % (35.0-46.0); HEMOGLOBIN 12.2 GM/DL (11.6-15.3); LYMPHOCYTE # 0.9 TH/MM3 (1.0-4.8); MEAN CELL VOLUME 91.7 FL (80.0-100.0); MEAN CORPUSCULAR HEMOGLOBIN 30.3 PG (27.0-34.0); MEAN CORPUSCULAR HGB CONC 33.1 % (32.0-36.0); MEAN PLATELET VOLUME 7.4 FL (7.0-11.0); MONO % 8.5 % (0.0-8.0); NEUT % 69.4 % (16.0-70.0); PLATELET COUNT 335 TH/MM3 (150-450); RED BLOOD COUNT 4.02 MIL/MM3 (4.00-5.30); RED CELL DISTRIBUTION WIDTH 13.9 % (11.6-17.2); WHITE BLOOD COUNT 11.8 TH/MM3 (4.0-11.0)
[2017-10-16 08:13] LABS: BICARBONATE 28.1 MEQ/L (21.0-32.0); CALCIUM 8.3 MG/DL (8.5-10.1); CREATININE 0.82 MG/DL (0.50-1.00)
[2017-10-16 08:39] LABS: FOLATE 18.8 NG/ML (3.1-17.5)
[2017-10-16 09:12] VITALS: BP 114/56; PULSE 101; RESP 16; TEMP 97.9; O2SAT 90
[2017-10-16] MEDS: NYSTAT/DIPHENHY/LIDO MOUTHWASH (Adult) 120ML SWISH-SWAL SCH ×4 (09:43→22:19)
[2017-10-16] MEDS: ATORVASTATIN 20 MG TAB PO SCH (09:43)
[2017-10-16] MEDS: SODIUM CHLORIDE 0.9% FLUSH 10 ML FLUSH IV FLUSH SCH ×2 (09:43→22:19)
[2017-10-16] MEDS: METOPROLOL SUCCINATE 25 MG EXTENDED RELEASE TAB PO SCH (09:43)
[2017-10-16] MEDS: SERTRALINE HCL 50 MG TAB PO SCH (09:43)
--- NOTE | 2017-10-16 10:46 | HHI.PR ---
Subjective Remarks In bed appears in nad. Pleasant. No pain. Patient has pruritic rash on her arms. Says she gets this rash on /off. She has very dry skin. No fever or chills. No n/v/d/c. Objective Vitals Vital Signs Date Time Temp Pulse Resp B/P (MAP) Pulse Ox O2 Delivery O2 Flow Rate FiO2 10/16/17 09:12 16 10/16/17 09:12 97.9 101 16 114/56 (75) 90 10/16/17 04:15 97.8 88 18 114/57 (76) 93 10/16/17 00:05 99.0 106 18 108/62 (77) 93 10/15/17 20:16 99.0 93 18 95/56 (69) 94 10/15/17 15:00 98.2 66 16 107/57 (74) 92 10/15/17 11:36 97.8 80 16 105/52 (69) 96 I/O 10/15/17 10/15/17 10/15/17 10/16/17 10/16/17 10/16/17 07:00 15:00 23:00 07:00 15:00 23:00 Intake Total 50 ml Balance 50 ml Intake Oral 50 ml # Voids 3 1 # Bowel Movements 1 Result Diagram: 10/16/17 0653 10/16/17 0653 Imaging Last Impressions Chest X-Ray 10/13/17 1205 Signed Impressions: Service Date/Time: September 12:09 - CONCLUSION: 1. Left apical density. Outpatient CT chest. 2. No acute cardiopulmonary process. Chemo Bonner MD Head CT 10/13/17 0916 Signed Impressions: Service Date/Time: September 09:39 - CONCLUSION: 1. Marked ventriculomegaly suggesting severe central cerebral atrophy versus hydrocephalus. Clinical correlation is recommended. 2. Severe periventricular and subcortical white matter small vessel ischemic changes bilaterally. 3. No acute hemorrhage, midline shift or extra-axial fluid collections. 4. Mucosal thickening involving the left sphenoid sinus. Gordon Cain MD Objective Remarks GENERAL: This is a pleasant well-nourished, well-developed patient, in no apparent distress. SKIN: Upper extremities with maculopapular rash, veru pruritic, superficial scratches. Very dy skin. HEAD: Atraumatic. Normocephalic. No lesions, no lacerations. No temporal or scalp tenderness. Bitemporal sunken. EYES: Pupils equal round and reactive. Extraocular motions intact. No scleral icterus. No injection or drainage. ENT: Nose without bleeding, purulent drainage or septal hematoma. Throat without erythema, tonsillar hypertrophy or exudate. Uvula midline. Airway patent. NECK: Trachea midline. No JVD or lymphadenopathy. Supple, nontender, no meningeal signs. CARDIOVASCULAR: Regular rate and rhythm without murmurs, gallops, or rubs. RESPIRATORY: Clear to auscultation. Breath sounds equal bilaterally. No wheezes , rales, or rhonchi. GASTROINTESTINAL: Abdomen soft, non-tender, nondistended. No guarding. MUSCULOSKELETAL: Severe muscle atrophy of hands, upper and lower extremities. Extremities without clubbing, cyanosis, or edema. No joint tenderness, effusion , or edema noted. No calf tenderness. Negative Homans sign bilaterally. NEUROLOGICAL: Awake and alert. Pleasant. Cranial nerves grossly intact. Motor and sensory grossly within normal limits. Five out of 5 muscle strength in all muscle groups. Normal speech. A/P Problem List: (1) Rectal prolapse ICD Code: K62.3 - Rectal prolapse Status: Acute Assessment and Plan 87-year-old female with: Rectal prolapse. Progressive disability from prolapse. Consult colorectal surgery, Dr Mason plan for proctopexy on Tuesday, Pain management accordingly. Will hold on narcotics as patient at risk of falls. Patient did not receive narcotic. Bowel prep Plan for repair of prolapse, after bowel prep for Dr. Mason colorectal surgeon. Patient and patient son refused sigmoidoscopy however. CLD now. NPO after midnight. Urinary tract infection. Treated with Cipro. Repeat UA is negative. Leukocytosis, improving. Monitor. Likely secondary to above infectious process versus rectal prolapse, continue to monitor Rash on upper extremities patient with very dry skin. Patient /family says she has rash on/off. On benadryl po will try to limit as patient at risk of falls. Will DC benadryl and start prednisone PO x 5 days . Give one dose IV solumedrol. Can add benadryl cream as need. Emolient cream as need, Zn oxide. Add emla cream Fall from bed per patient did not hit any bodily parts and she has no pain, no lacerations. Fall precautions. PT has evaluated patient recommends home with home health. Patient is at baseline mentation. Fall precautions. Marked ventriculomegaly suggesting severe central cerebral atrophy vs hydrocephalus, severe periventricular and subcortical white matter and small vessel ischemic changes bilateral by CT head. no CT for comparison. Will consult neurology for further evaluation. B12, folate normal Vit D deficiency vit D level of 14. Start ergocalciferol q7 days. Monitor level as OP. Severe protein calorie malnutrition. BMI is 16.9 patient with bitemporal sunken , muscle atrophy. Add ensure. Consult key worker. Incidental finding on CXR left apical density. Recommended OP CT follow up imaging ordered for DC. Patient notified and expressed understanding. 10/15/17 Attempted to talk with her son also regarding follow up however the son doesn't want to hear what I have to say regarding patient medical condition. Son at bedside 10/15/17, pleasant able to talk with him, he will follow up also for CT as OP, expressed understanding Aortic stenosis, Hypertension, History of SVT - Resume metoprolol Generalized weakness PT consult to treat and eval. PT recommends home with home health Code Status Full code Discussed Condition With Patient, nurse, son at bedside Discharge when improved and cleared by colorectal surgeon. Plan for surgery for rectal prolapse on Tuesday10/15/17. Dali Meyers MD Oct 16, 2017 10:46
--- NOTE | 2017-10-16 10:49 | HHI.PR ---
Subjective Remarks Pleasant patient. Denies pain or prolapse at present. Prolapse remains reduced. Wants repair. Dr Mason planning Abdominal proctopexy tomorrow Objective Vital Signs Date Time Temp Pulse Resp B/P (MAP) Pulse Ox O2 Delivery O2 Flow Rate FiO2 10/16/17 09:12 16 10/16/17 09:12 97.9 101 16 114/56 (75) 90 10/16/17 04:15 97.8 88 18 114/57 (76) 93 10/16/17 00:05 99.0 106 18 108/62 (77) 93 10/15/17 20:16 99.0 93 18 95/56 (69) 94 10/15/17 15:00 98.2 66 16 107/57 (74) 92 10/15/17 11:36 97.8 80 16 105/52 (69) 96 I/O 10/15/17 10/15/17 10/15/17 10/16/17 10/16/17 10/16/17 07:00 15:00 23:00 07:00 15:00 23:00 Intake Total 50 ml Balance 50 ml Intake Oral 50 ml # Voids 3 1 # Bowel Movements 1 Result Diagram: 10/16/17 0653 10/16/17 0653 Objective Remarks VS-S Abd: soft,non tender Rectum: remains reduced. Assessment and Plan Assessment and Plan Stable For proctopexy tomorrw. CLD now. NPO after midnight Beny Jaffe MD Oct 16, 2017 10:49
[2017-10-16] MEDS ORDERED: ZINC OXIDE 20% OINT 30 GM TUBE TOPICAL ONE (11:00)
[2017-10-16] MEDS ORDERED: methylPREDNISolone SOD SUCC 40 MG/1 ML VIAL IV PUSH ONE (11:00)
[2017-10-16] MEDS ORDERED: LIDOCAINE-PRILOCAIN 2.5% CREAM 5 GM TUBE TOPICAL PRN (11:00)
[2017-10-16] MEDS ORDERED: ERGOCALCIFEROL (VIT D2) 50,000 UNIT CAP PO SCH (11:00)
[2017-10-16] MEDS ORDERED: ZINC OXIDE 20% OINT 30 GM TUBE TOPICAL PRN (11:00)
[2017-10-16 13:06] VITALS: BP 88/52; PULSE 90; RESP 16; TEMP 98.6; O2SAT 93
[2017-10-16] MEDS: LACTOBACILLUS ACIDOPHILUS TAB PO SCH (13:16)
--- NOTE | 2017-10-16 14:04 | PD.CONS ---
History of Present Illness Service Neurology Consult Requested By medical Reason for Consult nph? abnormal ct scan Primary Care Physician Arnaldo Hassan M.D. History of Present Illness 87-year-old female admitted for rectal prolapse. during her hospital stay she had a ct brain scan performed that showed hydrocephalus and neurology was consulted for further eval. 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 has been using a wheelchair/walker due to falls. she is unable to elaborate on why she falls or any pre/post symptoms. admits to having imbalance over the past few years. denies any headache, focal weakness. she denies any spinal pain. Review of Systems Except as stated in HPI: all other systems reviewed are negative and as per admit hp Past Family Social History Past Medical History TIA, Hiatal hernia Rectal prolapse Hyperlipidemia Past Surgical History Urinary surgery Hysterectomy Allergies: Coded Allergies: clarithromycin (Unverified Allergy, Severe, SOB, 10/13/17) doxycycline (Unverified Allergy, Severe, SOB, 10/13/17) ibuprofen (Unverified Allergy, Severe, SOB, 10/13/17) minocycline (Unverified Allergy, Severe, SOB, 10/13/17) penicillin G (Unverified Allergy, Severe, SOB, 10/13/17) tigecycline (Unverified Allergy, Severe, SOB, 10/13/17) Family History Parkinson's, congestive heart failure. Social History quit tob use, no illicit drug use, no significant alcohol use. lives with son Review of Systems All other ROS: ROS reviewed as documented in chart Past Family Social History Allergies: Coded Allergies: clarithromycin (Unverified Allergy, Severe, SOB, 10/13/17) doxycycline (Unverified Allergy, Severe, SOB, 10/13/17) ibuprofen (Unverified Allergy, Severe, SOB, 10/13/17) minocycline (Unverified Allergy, Severe, SOB, 10/13/17) penicillin G (Unverified Allergy, Severe, SOB, 10/13/17) tigecycline (Unverified Allergy, Severe, SOB, 10/13/17) Beef Containing Products (Unverified Allergy, Unknown, "CAN'T DIGEST IT", 10/13/17) Active Ordered Medications Current Medications Medications (Trade) Dose Ordered Sig/Brigida Route Start Time Stop Time Status Last Admin (NS Flush) 2 ml UNSCH PRN IV FLUSH 10/13/17 14:15 (NS Flush) 2 ml BID IV FLUSH 10/13/17 21:00 10/16/17 09:43 (Zofran Inj) 4 mg Q6H PRN IVP 10/13/17 14:15 (Tylenol) 650 mg Q6H PRN PO 10/13/17 14:15 (Narcan Inj) 0.4 mg UNSCH PRN IV PUSH 10/13/17 14:15 (Toprol Xl) 25 mg DAILY PO 10/14/17 09:00 10/16/17 09:43 (Remeron) 30 mg HS PO 10/13/17 21:00 10/15/17 20:22 (Lipitor) 20 mg DAILY PO 10/14/17 09:00 10/16/17 09:43 (Zoloft) 25 mg DAILY PO 10/14/17 09:00 10/16/17 09:43 (Pill Splitter) 1 ea UNSCH PRN OTHER 10/13/17 15:15 Lactated Ringer's 1,000 ml @ 30 mls/hr Q24H PRN IV 10/15/17 08:00 10/18/17 07:59 Sodium Chloride 500 ml @ 30 mls/hr [id number] PRN IV 10/15/17 08:00 10/18/17 07:59 (Lopressor) 25 mg MERCHANDISE CLERK PRN PO 10/15/17 08:00 10/18/17 07:59 (Betadine 5% Antisepsis Kit) 1 applic MERCHANDISE CLERK PRN EACH NARE 10/15/17 08:00 10/18/17 07:59 (Chlorhexidine 2% Cloth) 3 pack MERCHANDISE CLERK PRN TOPICAL 10/15/17 08:00 10/18/17 07:59 (Magic Mouthwash Adult Liq) 5 ml QID SWISH-SWAL 10/15/17 13:00 10/22/17 12:59 10/16/17 13:18 (Vasotec Inj) 2.5 mg Q6H PRN IV PUSH 10/15/17 11:45 (Drisdol) 50,000 units Q7D PO 10/16/17 11:00 10/16/17 13:17 (Deltasone) 40 mg DAILY PO 10/17/17 09:00 10/21/17 08:59 (Lactinex) 1 tab DAILY PO 10/16/17 11:00 10/16/17 13:16 (Emla Cream) 1 applic UNSCH PRN TOPICAL 10/16/17 11:00 (Zinc Oxide 20% Oint) 1 applic UNSCH PRN TOPICAL 10/16/17 11:00 10/16/17 13:16 Exam I&O / VS 10/16/17 10/16/17 10/17/17 15:00 23:00 07:00 # Voids 1 Vital Signs Date Time Temp Pulse Resp B/P (MAP) Pulse Ox O2 Delivery O2 Flow Rate FiO2 10/16/17 13:06 98.6 90 16 88/52 (64) 93 10/16/17 09:12 16 10/16/17 09:12 97.9 101 16 114/56 (75) 90 10/16/17 04:15 97.8 88 18 114/57 (76) 93 10/16/17 00:05 99.0 106 18 108/62 (77) 93 10/15/17 20:16 99.0 93 18 95/56 (69) 94 10/15/17 15:00 98.2 66 16 107/57 (74) 92 General: Alert and Oriented, No acute distress Eye: EOMI Respiratory: Non-labored respirations Cardiology: Normal rate Musculoskeletal: ROM Neurologic: Alert, Oriented, Normal sensory, Normal motor, CN II-XII intact Psychiatric: Cooperative, Appropriate mood & affect Exam Comments alert, pleasant, follows, ox 2-3, pres Trump, eomi, face sym, graf to gravity, brisk le msr with loy ankle ankle clonus Review/Management Diagnosis/Plan: (1) Falls ICD Codes: W19.XXXA - Unspecified fall, initial encounter Status: Chronic Plan: ct brain reviewed. suspect 2/2 ventriculomegaly from atrophy and small vessel dz may be developing mci. falls could be associated with this in addition to advanced white matter dz. in addition, r/o cord compression with brisk le reflexes and clonus b12 nml check tsh, nh3 recs mri brain/c,tspine follow exam (2) Cognitive impairment ICD Codes: R41.89 - Other symptoms and signs involving cognitive functions and awareness Status: Chronic (3) Rectal prolapse ICD Codes: K62.3 - Rectal prolapse Status: Acute Plan: seeing colorectal surgery Problem Qualifiers (1) Falls: Qualified Codes: W19.XXXA - Unspecified fall, initial encounter Michael Huddleston MD Oct 16, 2017 14:04
--- NOTE | 2017-10-16 16:03 | RADRPT ---
EXAM DATE/TIME: 10/16/2017 14:51 [facility] COMPARISON: No previous studies available for comparison. INDICATIONS : Frequent falls. MEDICAL HISTORY : Cerebrovascular disease. Rectal prolapse. glaucoma. SURGICAL HISTORY : Hysterectomy. Right hip replacement. ENCOUNTER: Initial ACUITY: 1 day PAIN SCORE: 0/10 LOCATION: cranial TECHNIQUE: Multiplanar, multisequence MRI of the brain was performed without contrast. FINDINGS: The examination demonstrates advanced cortical atrophy. There is dilation of the ventricular system i n proportion to sulcal atrophy. There is advanced microvascular ischemic demyelinative change. No abnormal extra-axial fluid collections are seen. No mass lesion is identified. No findings to glenna jake acute cortical infarction are present. Sagittal T1-weighted images demonstrate normal formation of the corpus callosum and midline structure s. The cerebellar tonsils are in their appropriate location. CONCLUSION: 1. Cortical atrophy and advanced microvascular ischemic demyelinative change. There is ventricular di lation in proportion to sulci atrophy. Darin Light MD on October 16, 2017 at 15:59 Board Certified Radiologist. This report was verified electronically.
--- NOTE | 2017-10-16 16:11 | RADRPT ---
EXAM DATE/TIME: 10/16/2017 14:51 [facility] COMPARISON: No previous studies available for comparison. INDICATIONS : Myelopathy. Frequent falls. MEDICAL HISTORY : Cerebrovascular disease. Rectal prolapse. SURGICAL HISTORY : Hysterectomy. Right hip replacement. ENCOUNTER: Initial ACUITY: 1 day PAIN SCORE: 0/10 LOCATION: cranial TECHNIQUE: Multiplanar multisequence MRI of the thoracic spine was performed. FINDINGS: T1 and T2 are intact. Minimal superior endplate depressions at T3 and T4. T5 and T6 are intact. There is a moderate compression deformity of T7 with some marrow signal abnormality, probably subacut e. Mild retropulsion effaces the anterior thecal sac without cord impingement. T8 is intact. At T9 and T10 there are moderate compression deformities with some posterior facet region partially e ffacing the intrathecal sac. No cord compression. T11 is intact. There is a moderate compression fracture of T12, probably subacute with out retropulsion. Mild kyphosis. Overall no significant central canal stenosis. No cord signal abnormality. CONCLUSION: 1. Moderate compression deformities of T7, T9, T10 and T12. Mild retropulsion at T7. Mild osteophytic ridging at T9 and T10. These efface anterior thecal sac but there is no cord impingement or cord moncho ma. Fractures are probably subacute or old. 2. Mild kyphosis. David Coronel MD on October 16, 2017 at 16:04 Board Certified Radiologist. This report was verified electronically.
--- NOTE | 2017-10-16 16:14 | RADRPT ---
EXAM DATE/TIME: 10/16/2017 14:51 [facility] COMPARISON: No previous studies available for comparison. INDICATIONS : Myelopathy. MEDICAL HISTORY : Cerebrovascular disease. Rectal prolapse. Glaucoma. SURGICAL HISTORY : Hysterectomy. Right hip replacement. ENCOUNTER: Initial ACUITY: 1 day PAIN SCORE: 0/10 LOCATION: cranial TECHNIQUE: Multiplanar, multisequence MRI examination of the cervical spine was performed. FINDINGS: No cervical spine fracture or spondylolisthesis. Mild posterior disc osteophyte complex at C4-5-6-7 e ffacing the anterior thecal sac. However no cord impingement or cord edema. No significant central ca nal stenosis. CONCLUSION: 1. Mild to moderate degenerative disc disease. No significant canal stenosis, cord impingement or cor d edema. David Coronel MD on October 16, 2017 at 16:09 Board Certified Radiologist. This report was verified electronically.
[2017-10-16 18:25] VITALS: BP 120/65; PULSE 81; RESP 16; TEMP 98.4; O2SAT 93
[2017-10-16 22:15] VITALS: BP 121/62; PULSE 81; RESP 16; TEMP 98.6; O2SAT 94
[2017-10-16] MEDS: MIRTAZAPINE 15 MG TAB PO SCH (22:19)
[2017-10-17 04:50] VITALS: BP 130/65; PULSE 82; RESP 18; TEMP 97.9; O2SAT 92
--- NOTE | 2017-10-17 08:08 | HHI.PR ---
Review/Management Diagnosis/Plan: (1) Falls ICD Codes: W19.XXXA - Unspecified fall, initial encounter Status: Chronic Plan: ct brain reviewed. suspect 2/2 ventriculomegaly from atrophy and small vessel dz may be developing mci. falls could be associated with this in addition to advanced white matter dz. b12 nml tsh nml mri brain- enlarged ventricles appear 2/2 atrophy. no spinal cord lesion recs neuro stable images reviewed with pt needs outpatient f/u (2) Cognitive impairment ICD Codes: R41.89 - Other symptoms and signs involving cognitive functions and awareness Status: Chronic (3) Rectal prolapse ICD Codes: K62.3 - Rectal prolapse Status: Acute Plan: seeing colorectal surgery Subjective Subjective Comments No acute events reported No headache No chest pain No dyspnea Active Medications Current Medications Medications (Trade) Dose Ordered Sig/Brigida Route Start Time Stop Time Status Last Admin (NS Flush) 2 ml UNSCH PRN IV FLUSH 10/13/17 14:15 (NS Flush) 2 ml BID IV FLUSH 10/13/17 21:00 10/16/17 22:19 (Zofran Inj) 4 mg Q6H PRN IVP 10/13/17 14:15 (Tylenol) 650 mg Q6H PRN PO 10/13/17 14:15 (Narcan Inj) 0.4 mg UNSCH PRN IV PUSH 10/13/17 14:15 (Toprol Xl) 25 mg DAILY PO 10/14/17 09:00 10/16/17 09:43 (Remeron) 30 mg HS PO 10/13/17 21:00 10/16/17 22:19 (Lipitor) 20 mg DAILY PO 10/14/17 09:00 10/16/17 09:43 (Zoloft) 25 mg DAILY PO 10/14/17 09:00 10/16/17 09:43 (Pill Splitter) 1 ea UNSCH PRN OTHER 10/13/17 15:15 Lactated Ringer's 1,000 ml @ 30 mls/hr Q24H PRN IV 10/15/17 08:00 10/18/17 07:59 Sodium Chloride 500 ml @ 30 mls/hr [id number] PRN IV 10/15/17 08:00 10/18/17 07:59 (Lopressor) 25 mg FITNESS/WELLNESS DIRECTOR PRN PO 10/15/17 08:00 10/18/17 07:59 (Betadine 5% Antisepsis Kit) 1 applic FITNESS/WELLNESS DIRECTOR PRN EACH NARE 10/15/17 08:00 10/18/17 07:59 (Chlorhexidine 2% Cloth) 3 pack FITNESS/WELLNESS DIRECTOR PRN TOPICAL 10/15/17 08:00 10/18/17 07:59 (Magic Mouthwash Adult Liq) 5 ml QID SWISH-SWAL 10/15/17 13:00 10/22/17 12:59 10/16/17 22:19 (Vasotec Inj) 2.5 mg Q6H PRN IV PUSH 10/15/17 11:45 (Drisdol) 50,000 units Q7D PO 10/16/17 11:00 10/16/17 13:17 (Deltasone) 40 mg DAILY PO 10/17/17 09:00 10/21/17 08:59 (Lactinex) 1 tab DAILY PO 10/16/17 11:00 10/16/17 13:16 (Emla Cream) 1 applic UNSCH PRN TOPICAL 10/16/17 11:00 (Zinc Oxide 20% Oint) 1 applic UNSCH PRN TOPICAL 10/16/17 11:00 10/16/17 13:16 Allergies Allergies Coded Allergies clarithromycin (Unverified Allergy, Severe, SOB, 10/13/17) doxycycline (Unverified Allergy, Severe, SOB, 10/13/17) ibuprofen (Unverified Allergy, Severe, SOB, 10/13/17) minocycline (Unverified Allergy, Severe, SOB, 10/13/17) penicillin G (Unverified Allergy, Severe, SOB, 10/13/17) tigecycline (Unverified Allergy, Severe, SOB, 10/13/17) Beef Containing Products (Unverified Allergy, Unknown, "CAN'T DIGEST IT", 10/13) Review of Systems All other ROS: ROS reviewed as documented in chart Exam I&O / VS Vital Signs Date Time Temp Pulse Resp B/P (MAP) Pulse Ox O2 Delivery O2 Flow Rate FiO2 10/17/17 04:50 97.9 82 18 130/65 (86) 92 10/16/17 22:15 98.6 81 16 121/62 (81) 94 10/16/17 18:25 98.4 81 16 120/65 (83) 93 10/16/17 13:06 98.6 90 16 88/52 (64) 93 10/16/17 09:12 16 10/16/17 09:12 97.9 101 16 114/56 (75) 90 General: Alert and Oriented, No acute distress Eye: EOMI Respiratory: Non-labored respirations Cardiology: Normal rate Musculoskeletal: ROM Neurologic: Alert, Oriented, Normal sensory, Normal motor, CN II-XII intact Psychiatric: Cooperative, Appropriate mood & affect Exam Comments alert, pleasant, follows, ox 2-3, pres Trump, eomi, face sym, graf to gravity, msr 2+, no clonus this am Objective Micro and Labs Date/Time Source Procedure Growth Status 10/13/17 10:55 Urine Catheterized Urine Urine Culture - Final NO GROWTH IN 48 HOURS. Complete Problem Qualifiers (1) Falls: Qualified Codes: W19.XXXA - Unspecified fall, initial encounter Michael Huddleston MD Oct 17, 2017 08:08
[2017-10-17 09:05] LABS: AUTOMATED NEUTROPHIL # 6.7 TH/MM3 (1.8-7.7); BASOPHIL % 0.5 % (0.0-2.0); EOSINOPHIL % 0.1 % (0.0-4.0); HEMATOCRIT 39.6 % (35.0-46.0); HEMOGLOBIN 13.4 GM/DL (11.6-15.3); LYMPH % 7.5 % (9.0-44.0); LYMPHOCYTE # 0.6 TH/MM3 (1.0-4.8); MEAN CORPUSCULAR HGB CONC 33.7 % (32.0-36.0); MEAN PLATELET VOLUME 7.2 FL (7.0-11.0); MONO % 2.4 % (0.0-8.0); MONOCYTE # 0.2 TH/MM3 (0-0.9); NEUT % 89.5 % (16.0-70.0); PLATELET COUNT 331 TH/MM3 (150-450); RED BLOOD COUNT 4.31 MIL/MM3 (4.00-5.30); RED CELL DISTRIBUTION WIDTH 13.8 % (11.6-17.2); WHITE BLOOD COUNT 7.5 TH/MM3 (4.0-11.0)
[2017-10-17 09:13] VITALS: BP 113/60; PULSE 80; RESP 16; TEMP 97.7; O2SAT 93
[2017-10-17] MEDS: SERTRALINE HCL 50 MG TAB PO SCH (09:19)
[2017-10-17] MEDS: ATORVASTATIN 20 MG TAB PO SCH (09:20)
[2017-10-17] MEDS: predniSONE 20 MG TAB PO SCH (09:20)
[2017-10-17] MEDS: NYSTAT/DIPHENHY/LIDO MOUTHWASH (Adult) 120ML SWISH-SWAL SCH ×3 (09:21→18:00)
[2017-10-17] MEDS: SODIUM CHLORIDE 0.9% FLUSH 10 ML FLUSH IV FLUSH SCH ×2 (09:21→21:00)
[2017-10-17] MEDS: METOPROLOL SUCCINATE 25 MG EXTENDED RELEASE TAB PO SCH (09:21)
[2017-10-17] MEDS: LACTOBACILLUS ACIDOPHILUS TAB PO SCH (09:22)
[2017-10-17 09:26] LABS: BICARBONATE 27.1 MEQ/L (21.0-32.0); CALCIUM 8.6 MG/DL (8.5-10.1); CREATININE 0.84 MG/DL (0.50-1.00)
--- NOTE | 2017-10-17 10:35 | EKG ---
Date Performed: 10/17/2017 Time Performed: 04:58:05 PTAGE: 87 years EKG: Sinus rhythm POSSIBLE LEFT ATRIAL ENLARGEMENT POSSIBLE LEFT VENTRICULAR HYPERTROPHY Compared to previous tracing the patient now meets criteria for LVH ABNORMAL ECG PREVIOUS TRACING : 01/11/2005 11.44 DOCTOR: Roselyn Nagel Interpretating Date/Time 10/17/2017 10:33:11
[2017-10-17] MEDS ORDERED: GLYCOPYRROLATE 1 MG/5 ML SYRINGE IV PUSH ONE (12:00)
[2017-10-17] MEDS ORDERED: PHENYLEPH/NS 1000 MCG/10 ML SYR IV ONE (12:00)
[2017-10-17] MEDS ORDERED: ceFAZolin INJ 1,000 MG VIAL IV ONE ×2 (12:00→17:32)
[2017-10-17] MEDS ORDERED: ROCURONIUM INJ 50 MG/5 ML SYRINGE IV PUSH ONE (12:00)
[2017-10-17] MEDS ORDERED: NEOSTIGMINE 5 MG/5 ML SYRINGE IV PUSH ONE (12:00)
[2017-10-17] MEDS ORDERED: LIDOCAINE HCL 1% PF 5 ML SYRINGE OTHER ONE (12:00)
[2017-10-17] MEDS ORDERED: ONDANSETRON HCL 4 MG/2 ML VIAL IV PUSH ONE (12:00)
[2017-10-17] MEDS ORDERED: ePHEDrine/NS 25 MG/5 ML SYRINGE IV ONE (12:00)
[2017-10-17 12:10] VITALS: BP 113/65; PULSE 80; RESP 16; TEMP 98.4; O2SAT 91
[2017-10-17] MEDS ORDERED: metroNIDAZOLE 500 MG INJ 100 ML IV ONE (17:10)
--- NOTE | 2017-10-17 17:10 | HHI.PR ---
Subjective Remarks The patient was seen early in the morning. No pain. Rash improved significantly and says skin is not itchy anymore. No n/v/d/c. Objective Vitals Vital Signs Date Time Temp Pulse Resp B/P (MAP) Pulse Ox O2 Delivery O2 Flow Rate FiO2 10/17/17 12:10 98.4 80 16 113/65 (81) 91 10/17/17 09:13 97.7 80 16 113/60 (77) 93 10/17/17 04:50 97.9 82 18 130/65 (86) 92 10/16/17 22:15 98.6 81 16 121/62 (81) 94 10/16/17 18:25 98.4 81 16 120/65 (83) 93 I/O 10/16/17 10/16/17 10/16/17 10/17/17 10/17/17 10/17/17 07:00 15:00 23:00 07:00 15:00 23:00 Intake Total 200 ml Balance 200 ml Intake Oral 200 ml # Voids 1 4 # Bowel Movements 0 Result Diagram: 10/17/17 0842 10/17/17 0842 Imaging Last Impressions Thoracic Spine MRI 10/16/17 0000 Signed Impressions: Service Date/Time: Monday, October 16, 2017 14:51 - CONCLUSION: 1. Moderate compression deformities of T7, T9, T10 and T12. Mild retropulsion at T7. Mild osteophytic ridging at T9 and T10. These efface anterior thecal sac but there is no cord impingement or cord edema. Fractures are probably subacute or old. 2. Mild kyphosis. David Coronel MD Cervical Spine MRI 10/16/17 0000 Signed Impressions: Service Date/Time: Monday, October 16, 2017 14:51 - CONCLUSION: 1. Mild to moderate degenerative disc disease. No significant canal stenosis, cord impingement or cord edema. David Coronel MD Brain MRI 10/16/17 0000 Signed Impressions: Service Date/Time: Monday, October 16, 2017 14:51 - CONCLUSION: 1. Cortical atrophy and advanced microvascular ischemic demyelinative change. There is ventricular dilation in proportion to sulci atrophy. Darin Light MD Chest X-Ray 10/13/17 1205 Signed Impressions: Service Date/Time: September 12:09 - CONCLUSION: 1. Left apical density. Outpatient CT chest. 2. No acute cardiopulmonary process. Chemo Bonner MD Head CT 10/13/17 0916 Signed Impressions: Service Date/Time: September 09:39 - CONCLUSION: 1. Marked ventriculomegaly suggesting severe central cerebral atrophy versus hydrocephalus. Clinical correlation is recommended. 2. Severe periventricular and subcortical white matter small vessel ischemic changes bilaterally. 3. No acute hemorrhage, midline shift or extra-axial fluid collections. 4. Mucosal thickening involving the left sphenoid sinus. Gordon Cain MD Objective Remarks GENERAL: This is a pleasant well-nourished, well-developed patient, in no apparent distress. SKIN: Upper extremities with maculopapular rash, veru pruritic, superficial scratches. Very dy skin. HEAD: Atraumatic. Normocephalic. No lesions, no lacerations. No temporal or scalp tenderness. Bitemporal sunken. EYES: Pupils equal round and reactive. Extraocular motions intact. No scleral icterus. No injection or drainage. ENT: Nose without bleeding, purulent drainage or septal hematoma. Throat without erythema, tonsillar hypertrophy or exudate. Uvula midline. Airway patent. NECK: Trachea midline. No JVD or lymphadenopathy. Supple, nontender, no meningeal signs. CARDIOVASCULAR: Regular rate and rhythm without murmurs, gallops, or rubs. RESPIRATORY: Clear to auscultation. Breath sounds equal bilaterally. No wheezes , rales, or rhonchi. GASTROINTESTINAL: Abdomen soft, non-tender, nondistended. No guarding. MUSCULOSKELETAL: Severe muscle atrophy of hands, upper and lower extremities. Extremities without clubbing, cyanosis, or edema. No joint tenderness, effusion , or edema noted. No calf tenderness. Negative Homans sign bilaterally. NEUROLOGICAL: Awake and alert. Pleasant. Cranial nerves grossly intact. Motor and sensory grossly within normal limits. Five out of 5 muscle strength in all muscle groups. Normal speech. A/P Problem List: (1) Rectal prolapse ICD Code: K62.3 - Rectal prolapse Status: Acute Assessment and Plan 87-year-old female with: Rectal prolapse. Progressive disability from prolapse. Consult colorectal surgery, Dr Mason plan for proctopexy on Tuesday, Pain management accordingly. Will hold on narcotics as patient at risk of falls. Patient did not receive narcotic. Bowel prep Plan for repair of prolapse, after bowel prep for Dr. Mason colorectal surgeon. Patient and patient son refused sigmoidoscopy however. CLD now. NPO after midnight. Urinary tract infection. Treated with Cipro. Repeat UA is negative. Leukocytosis, improving. Monitor. Likely secondary to above infectious process versus rectal prolapse, continue to monitor Rash on upper extremities patient with very dry skin. Patient /family says she has rash on/off. On benadryl po will try to limit as patient at risk of falls. Will DC benadryl and start prednisone PO x 5 days . Give one dose IV solumedrol. Can add benadryl cream as need. Emolient cream as need, Zn oxide, emla cream. Rash and pruritus improved significantly. Fall from bed per patient did not hit any bodily parts and she has no pain, no lacerations. Fall precautions. PT has evaluated patient recommends home with home health. Patient is at baseline mentation. Fall precautions. Marked ventriculomegaly suggesting severe central cerebral atrophy vs hydrocephalus, severe periventricular and subcortical white matter and small vessel ischemic changes bilateral by CT head. no CT for comparison. Will consult neurology for further evaluation. B12, folate normal Vit D deficiency vit D level of 14. Start ergocalciferol q7 days. Monitor level as OP. Severe protein calorie malnutrition. BMI is 16.9 patient with bitemporal sunken , muscle atrophy. Add ensure. Consult biofuels product development manager. Incidental finding on CXR left apical density. Recommended OP CT follow up imaging ordered for DC. Patient notified and expressed understanding. 10/15/17 Attempted to talk with her son also regarding follow up however the son doesn't want to hear what I have to say regarding patient medical condition. Son at bedside 10/15/17, pleasant able to talk with him, he will follow up also for CT as OP, expressed understanding. CT chest was ordered as OP Aortic stenosis, Hypertension, History of SVT - Resume metoprolol Generalized weakness PT consult to treat and eval. PT recommends home with home health Code Status Full code Discussed Condition With Patient, nurse, son at bedside Discharge when improved and cleared by colorectal surgeon. Going for surgery for rectal prolapse - Tuesday10/17/17. Dali Meyers MD Oct 17, 2017 17:10
[2017-10-17] MEDS: D5-NS + KCL 20 MEQ INJ 1,000 ML IV SCH (18:09)
[2017-10-17] MEDS ORDERED: ACETAMINOPHEN 1000 MG/100 ML 100 ML IV ONE (18:12)
[2017-10-17] MEDS ORDERED: ACETAMINOPHEN 1000 MG/100 ML 100 ML IV PRN (18:15)
[2017-10-17] MEDS ORDERED: BENZOCAINE 6 MG/MENTHOL 10 MG LOZENGE BUCCAL PRN (18:15)
[2017-10-17] MEDS ORDERED: KETOROLAC TROMETHAMINE 30 MG/ML (IVP) VIAL IVP PRN (18:15)
[2017-10-17] MEDS ORDERED: ENALAPRILAT 2.5 MG/2 ML VIAL IV PUSH PRN (18:15)
[2017-10-17] MEDS ORDERED: NALOXONE HCL 0.4 MG/ML AMP IV PUSH PRN (18:15)
[2017-10-17] MEDS ORDERED: ACETAMINOPHEN 325 MG TAB PO PRN (18:15)
[2017-10-17] MEDS ORDERED: MORPHINE SULFATE 30 MG/30 ML PCA IV SCH (18:15)
[2017-10-17] MEDS ORDERED: ONDANSETRON HCL 4 MG/2 ML VIAL IV PUSH PRN (18:15)
[2017-10-17] MEDS ORDERED: ACETAMINOPHEN/HYDROcodone 325 MG/5 MG TAB PO PRN ×2 (18:15)
[2017-10-17] MEDS ORDERED: POTASSIUM CHLOR 40 MEQ PREMIX 100 ML IV PRN (18:15)
[2017-10-17] MEDS ORDERED: POTASSIUM CHLOR 20 MEQ PREMIX 100 ML IV PRN (18:15)
[2017-10-17] MEDS ORDERED: ENALAPRILAT 1.25 MG/ML VIAL IV PUSH PRN (18:15)
[2017-10-17] MEDS ORDERED: Post-op Orders (for Pharmacy) XX ONE (18:15)
[2017-10-17] MEDS ORDERED: *ONDANSETRON 4 MG VIAL PERIprocedural Use ONLY ONE (18:17)
[2017-10-17] MEDS ORDERED: DO NOT ADM ANY ANTICOAGULANT DRUGS PRN (18:20)
[2017-10-17] MEDS: METOCLOPRAMIDE HCL 10 MG/2 ML VIAL IVS SCH (21:00)
[2017-10-17 22:00] VITALS: BP 122/58; PULSE 79; RESP 14; TEMP 97.4; O2SAT 99
[2017-10-17] MEDS: PCA - TOTAL MG MORPHINE DELIVERED PER SHIFT SCH (22:00)
[2017-10-17] MEDS: MIRTAZAPINE 15 MG TAB PO SCH (22:34)
[2017-10-17 23:00] VITALS: BP 134/66; PULSE 75; RESP 14; TEMP 97.5; O2SAT 98
[2017-10-18] VITALS (26 sets, daily range): BP systolic 101–129; BP diastolic 53–71; PULSE 77–110; RESP 16–20; TEMP 97.6–99.1; O2SAT 95–98
[2017-10-18] MEDS: metroNIDAZOLE 500 MG INJ 100 ML IV SCH ×3 (01:06→17:34)
[2017-10-18] MEDS: D5-NS + KCL 20 MEQ INJ 1,000 ML IV SCH ×3 (01:57→18:39)
[2017-10-18 04:04] LABS: AUTOMATED NEUTROPHIL # 11.9 TH/MM3 (1.8-7.7); BASOPHIL # 0.1 TH/MM3 (0-0.2); BASOPHIL % 0.8 % (0.0-2.0); EOSINOPHIL # 0.1 TH/MM3 (0-0.4); EOSINOPHIL % 0.9 % (0.0-4.0); HEMOGLOBIN 12.1 GM/DL (11.6-15.3); LYMPH % 6.9 % (9.0-44.0); MEAN CELL VOLUME 92.6 FL (80.0-100.0); MEAN CORPUSCULAR HEMOGLOBIN 30.3 PG (27.0-34.0); MEAN CORPUSCULAR HGB CONC 32.7 % (32.0-36.0); MEAN PLATELET VOLUME 7.5 FL (7.0-11.0); MONOCYTE # 0.8 TH/MM3 (0-0.9); NEUT % 85.4 % (16.0-70.0); PLATELET COUNT 312 TH/MM3 (150-450); RED CELL DISTRIBUTION WIDTH 13.6 % (11.6-17.2)
[2017-10-18 04:34] LABS: BICARBONATE 26.1 MEQ/L (21.0-32.0); CREATININE 0.83 MG/DL (0.50-1.00)
[2017-10-18] MEDS: PCA - TOTAL MG MORPHINE DELIVERED PER SHIFT SCH ×3 (05:35→21:15)
--- NOTE | 2017-10-18 06:59 | MP ---
cc: Blair Mason MD, Andrew H MD DATE OF OPERATION: 10/17/2017 PREOPERATIVE DIAGNOSIS: Rectal prolapse. PROCEDURE: Exploratory laparotomy with rectopexy. POSTOPERATIVE DIAGNOSIS: Rectal prolapse. SURGEON: Blair Mason MD PROCEDURE NOTE: The patient was placed in the supine position. After adequate general anesthesia, her abdomen was prepped with Betadine solution and draped in the usual sterile fashion. The abdomen was opened through a lower midline incision entering the abdominal cavity under direct vision. Exploration revealed a somewhat redundant sigmoid colon with extensive diverticulosis. The colon was softly full of stool and the rectum appeared to be full of soft stool. The proximal colon was pretty unremarkable. The liver and gallbladder were unremarkable. The stomach and duodenum were normal. The uterus had been previously removed. Great vessels were of normal caliber and only mildly calcified. First, the sigmoid colon was mobilized medially by dividing along the left white line of Toldt. The left ureter was identified and carefully preserved. Dissection then proceeded opening up the right retroperitoneal space and the bowel dissected off the presacral fascia extending the dissection down to the pelvic floor for full rectal mobilization. Care was taken to preserve the parietal peritoneum around the colon. Some adhesions to the cul-de-sac were taken down for full rectal mobilization. With traction on the rectum, straightening the rectum towards the sacral promontory, 4 mattress sutures were placed, 2 on each side of the rectum to pex it into position to the rectal promontory. There appeared to be adequate tension on the rectum with these four mattress sutures with good suspension of the rectum. The presacral space was irrigated and hemostasis achieved. The midline incision was then closed, anatomically using a running #1 PDS suture to reapproximate the midline fascia. The subcutaneous tissue was irrigated copiously and the skin closed with a row of surgical jonh. The wounds area washed with normal saline and dried, sterile dressing of Telfa and gauze applied. The patient tolerated the procedure quite well and was brought to the recovery room in stable condition. Sponge and needle counts were correct at the end of the procedure. Blair Mason MD AHR/DL , 09:13 PM , 06:57 AM
--- NOTE | 2017-10-18 07:01 | MG ---
cc: Michael Huddleston MD ELECTROENCEPHALOGRAM RECORD NUMBER: [id number]. DESCRIPTION: This is an 87-year-old with history of mild some confusion, 7-9 hertz alpha activity, 20-50 microvolts. Low-amplitude beta in the frontal channels. Good anterior to posterior gradient. Attenuation slowing suggestive of drowsy state. Occasional head movement and myogenic artifact. Further generalized slowing with transition into stage I sleep. Good EEG variability and reactivity out of arousal state. Reasonable driving with photic stimulation. Single lead EKG showing sinus rhythm with premature contractions. Subtle tiny sharp transients T5 through EPOCH 122, appeared to be more sleep state related. INTERPRETATION: Normal awake sleep EEG with well formed cerebral rhythms for this patient's age. Clinical correlation. MD RANDI Solomon/AMANUEL , 08:43 PM , 09:14 PM
[2017-10-18] MEDS: SERTRALINE HCL 50 MG TAB PO SCH (09:00)
[2017-10-18] MEDS: PANTOPRAZOLE SODIUM 40 MG VIAL IVP SCH (09:00)
[2017-10-18] MEDS: ATORVASTATIN 20 MG TAB PO SCH (09:33)
[2017-10-18] MEDS: predniSONE 20 MG TAB PO SCH (09:34)
[2017-10-18] MEDS: PANTOPRAZOLE SOD 40 MG DELAYED RELEASE TAB PO SCH (09:34)
[2017-10-18] MEDS: METOPROLOL SUCCINATE 25 MG EXTENDED RELEASE TAB PO SCH (09:34)
[2017-10-18] MEDS: LACTOBACILLUS ACIDOPHILUS TAB PO SCH (09:35)
[2017-10-18] MEDS: METOCLOPRAMIDE HCL 10 MG/2 ML VIAL IVS SCH ×2 (09:36→21:13)
[2017-10-18] MEDS: SODIUM CHLORIDE 0.9% FLUSH 10 ML FLUSH IV FLUSH SCH ×2 (09:37→21:13)
[2017-10-18] MEDS: NYSTAT/DIPHENHY/LIDO MOUTHWASH (Adult) 120ML SWISH-SWAL SCH ×3 (13:00→21:13)
--- NOTE | 2017-10-18 18:38 | HHI.PR ---
Subjective Remarks pateitn is starving states passed out lots of "gas" no pain complains up on the cahir Objective Vitals Vital Signs Date Time Temp Pulse Resp B/P (MAP) Pulse Ox O2 Delivery O2 Flow Rate FiO2 10/18/17 18:07 85 10/18/17 17:35 81 10/18/17 16:29 97 Nasal Cannula 2.00 10/18/17 16:29 98.6 85 18 107/57 (74) 97 10/18/17 16:14 79 10/18/17 14:03 83 10/18/17 14:00 16 10/18/17 13:01 86 10/18/17 12:28 97 Nasal Cannula 2.00 10/18/17 12:27 99.1 81 18 103/59 (74) 97 10/18/17 12:26 90 10/18/17 10:00 108 10/18/17 09:00 100 10/18/17 08:00 88 10/18/17 08:00 98.1 108 20 128/71 (90) 97 10/18/17 07:50 98 Nasal Cannula 2.00 10/18/17 06:00 90 10/18/17 05:35 16 10/18/17 05:00 90 10/18/17 04:00 98 Nasal Cannula 2.00 10/18/17 04:00 90 10/18/17 03:00 92 10/18/17 03:00 97.6 77 16 129/61 (83) 97 10/18/17 02:00 93 10/18/17 01:00 87 10/18/17 00:00 93 10/17/17 23:00 75 10/17/17 23:00 97.5 75 14 134/66 (88) 98 10/17/17 22:00 79 10/17/17 22:00 14 10/17/17 22:00 97.4 79 14 122/58 (79) 99 10/17/17 21:00 97.5 68 18 123/58 (79) 98 Nasal Cannula 2 10/17/17 20:30 60 16 124/57 (79) 96 Nasal Cannula 2 10/17/17 20:00 97.5 62 16 121/58 (79) 96 Nasal Cannula 2 10/17/17 19:45 58 15 121/58 (79) 96 Nasal Cannula 2 10/17/17 19:30 59 15 123/58 (79) 96 Nasal Cannula 2 10/17/17 19:15 55 15 108/56 (73) 96 Nasal Cannula 2 10/17/17 19:12 15 10/17/17 19:00 56 14 132/62 (85) 95 Nasal Cannula 2 10/17/17 18:45 54 14 128/61 (83) 94 Nasal Cannula 2 I/O 10/17/17 10/17/17 10/17/17 10/18/17 10/18/17 10/18/17 07:00 15:00 23:00 07:00 15:00 23:00 Intake Total 200 ml 500 ml 1521 ml 1260 ml Output Total 510 ml 325 ml 500 ml Balance 200 ml -10 ml 1196 ml 760 ml Intake Oral 200 ml 30 ml IV Total 500 ml 1491 ml 1260 ml Output Urine Total 500 ml 325 ml 500 ml Estimated Blood Loss 10 ml # Voids 4 # Bowel Movements 0 0 Result Diagram: 10/18/175 10/18/17 0215 Imaging Last Impressions Thoracic Spine MRI 10/16/17 0000 Signed Impressions: Service Date/Time: Monday, October 16, 2017 14:51 - CONCLUSION: 1. Moderate compression deformities of T7, T9, T10 and T12. Mild retropulsion at T7. Mild osteophytic ridging at T9 and T10. These efface anterior thecal sac but there is no cord impingement or cord edema. Fractures are probably subacute or old. 2. Mild kyphosis. David Coronel MD Cervical Spine MRI 10/16/17 0000 Signed Impressions: Service Date/Time: Monday, October 16, 2017 14:51 - CONCLUSION: 1. Mild to moderate degenerative disc disease. No significant canal stenosis, cord impingement or cord edema. David Coronel MD Brain MRI 10/16/17 0000 Signed Impressions: Service Date/Time: Monday, October 16, 2017 14:51 - CONCLUSION: 1. Cortical atrophy and advanced microvascular ischemic demyelinative change. There is ventricular dilation in proportion to sulci atrophy. Darin Light MD Chest X-Ray 10/13/17 1205 Signed Impressions: Service Date/Time: September 12:09 - CONCLUSION: 1. Left apical density. Outpatient CT chest. 2. No acute cardiopulmonary process. Chemo Bonner MD Head CT 10/13/17 0916 Signed Impressions: Service Date/Time: September 09:39 - CONCLUSION: 1. Marked ventriculomegaly suggesting severe central cerebral atrophy versus hydrocephalus. Clinical correlation is recommended. 2. Severe periventricular and subcortical white matter small vessel ischemic changes bilaterally. 3. No acute hemorrhage, midline shift or extra-axial fluid collections. 4. Mucosal thickening involving the left sphenoid sinus. Gordon Cain MD Objective Remarks awake and alert, oriented x 3 anicteric lungs- no rales regular rhythma bdomen- soft, + bowel sounds, post op dressing in place extremiteis no edema Procedures 10/17 Exploratory laparotomy with rectopexy. Urinary Catheter: Yes Assessment to: Continue Luciano insert reason: Surgical/Invasive Proced Date of Insertion: Oct 17, 2017 A/P Problem List: (1) Rectal prolapse ICD Code: K62.3 - Rectal prolapse Status: Acute Assessment and Plan 87-year-old female with: Rectal prolapse. Progressive disability from prolapse. S/P explore lap with rectopexy 10/17 CRS ff start diet Urinary tract infection. S/P Tx with Cipro. Repeat UA is negative. Leukocytosis, improving. Monitor. Likely secondary to above infectious process versus rectal prolapse, continue to monitor Rash on upper extremities patient with very dry skin. Patient /family says she has rash on/off. On benadryl po will try to limit as patient at risk of falls. Will DC benadryl and start prednisone PO x 5 days . Give one dose IV solumedrol. Can add benadryl cream as need. Emolient cream as need, Zn oxide, emla cream. Rash and pruritus improved significantly. Fall from bed per patient did not hit any bodily parts and she has no pain, no lacerations. Fall precautions. PT has evaluated patient recommends home with home health. Patient is at baseline mentation. Fall precautions. states baseline- uses a walker and a wheelchair "my son won't ;et me walk on my own" get PT consult to eval- evaluate gait Marked ventriculomegaly suggesting severe central cerebral atrophy vs hydrocephalus, severe periventricular and subcortical white matter and small vessel ischemic changes bilateral by CT head. no CT for comparison. Will consult neurology for further evaluation. B12, folate normal PT consult to evaluate gait Vit D deficiency vit D level of 14. Start ergocalciferol q7 days. Monitor level as OP. Severe protein calorie malnutrition. BMI is 16.9 patient with bitemporal sunken , muscle atrophy. Add ensure. dietitian consulted Incidental finding on CXR left apical density. Recommended OP CT follow up imaging ordered for DC. Patient notified and expressed understanding. 10/15/17 Attempted to talk with her son also regarding follow up however the son doesn't want to hear what I have to say regarding patient medical condition. Son at bedside 10/15/17, pleasant able to talk with him, he will follow up also for CT as OP, expressed understanding. CT chest was ordered as OP Aortic stenosis, Hypertension, History of SVT -on metoprolol Generalized weakness PT daily PT recommends home with home health Out of bed to chair daily CAse management consult- Home with health care nursing and PT Eddie Mai MD Oct 18, 2017 18:38
[2017-10-18] MEDS: MIRTAZAPINE 15 MG TAB PO SCH (21:13)
[2017-10-19] VITALS (19 sets, daily range): BP systolic 92–123; BP diastolic 55–65; PULSE 88–113; RESP 16–22; TEMP 97.8–99.2; O2SAT 90–97
[2017-10-19] MEDS: PCA - TOTAL MG MORPHINE DELIVERED PER SHIFT SCH ×3 (06:00→22:00)
[2017-10-19] MEDS: LACTOBACILLUS ACIDOPHILUS TAB PO SCH (08:40)
[2017-10-19] MEDS: ATORVASTATIN 20 MG TAB PO SCH (08:40)
[2017-10-19] MEDS: NYSTAT/DIPHENHY/LIDO MOUTHWASH (Adult) 120ML SWISH-SWAL SCH ×4 (08:40→21:00)
[2017-10-19] MEDS: PANTOPRAZOLE SOD 40 MG DELAYED RELEASE TAB PO SCH (08:40)
[2017-10-19] MEDS: predniSONE 20 MG TAB PO SCH (08:41)
[2017-10-19] MEDS: PANTOPRAZOLE SODIUM 40 MG VIAL IVP SCH (08:41)
[2017-10-19] MEDS: SERTRALINE HCL 50 MG TAB PO SCH (08:41)
[2017-10-19] MEDS: SODIUM CHLORIDE 0.9% FLUSH 10 ML FLUSH IV FLUSH SCH ×2 (08:41→22:26)
[2017-10-19] MEDS: METOPROLOL SUCCINATE 25 MG EXTENDED RELEASE TAB PO SCH (08:41)
[2017-10-19] MEDS: METOCLOPRAMIDE HCL 10 MG/2 ML VIAL IVS SCH ×2 (08:46→22:22)
[2017-10-19] MEDS: D5-NS + KCL 20 MEQ INJ 1,000 ML IV SCH (12:22)
--- NOTE | 2017-10-19 18:01 | HHI.PR ---
Subjective Remarks tolerating current diet, no nausea or vomiting pain controlled Objective Vitals Vital Signs Date Time Temp Pulse Resp B/P (MAP) Pulse Ox O2 Delivery O2 Flow Rate FiO2 10/19/17 16:00 97.8 89 17 92/55 (67) 90 10/19/17 14:05 96 Nasal Cannula 2.00 10/19/17 13:03 18 10/19/17 13:00 94 10/19/17 12:00 90 10/19/17 11:32 97 Nasal Cannula 2.00 10/19/17 11:30 98.4 88 18 114/60 (78) 97 10/19/17 11:00 98 10/19/17 10:00 88 10/19/17 09:00 92 10/19/17 08:00 88 10/19/17 08:00 98.5 88 18 117/59 (78) 97 10/19/17 07:56 96 Nasal Cannula 2.00 10/19/17 07:00 95 10/19/17 06:00 97 10/19/17 06:00 16 10/19/17 05:00 94 10/19/17 04:00 102 10/19/17 03:30 97 Nasal Cannula 2.00 10/19/17 03:30 98.1 92 16 114/58 (76) 97 10/19/17 03:00 107 10/19/17 02:00 103 10/19/17 01:00 97 10/19/17 00:00 98 10/18/17 23:30 98.2 98 16 101/53 (69) 95 10/18/17 23:30 95 Nasal Cannula 2.00 10/18/17 23:00 98 10/18/17 22:00 110 10/18/17 21:15 16 10/18/17 21:00 102 10/18/17 20:00 90 10/18/17 20:00 98.2 84 16 108/53 (71) 96 10/18/17 20:00 96 Nasal Cannula 2.00 10/18/17 19:44 96 Nasal Cannula 2.00 10/18/17 19:00 88 10/18/17 18:07 85 I/O 10/18/17 10/18/17 10/18/17 10/19/17 10/19/17 10/19/17 07:00 15:00 23:00 07:00 15:00 23:00 Intake Total 1521 ml 1260 ml 1509 ml 750 ml Output Total 325 ml 500 ml 330 ml 350 ml Balance 1196 ml 760 ml 1179 ml 400 ml Intake Oral 30 ml 780 ml 750 ml IV Total 1491 ml 1260 ml 729 ml Output Urine Total 325 ml 500 ml 330 ml 350 ml # Bowel Movements 0 0 0 Result Diagram: 10/18/175 10/18/17 0215 Imaging Last Impressions Thoracic Spine MRI 10/16/17 0000 Signed Impressions: Service Date/Time: Monday, October 16, 2017 14:51 - CONCLUSION: 1. Moderate compression deformities of T7, T9, T10 and T12. Mild retropulsion at T7. Mild osteophytic ridging at T9 and T10. These efface anterior thecal sac but there is no cord impingement or cord edema. Fractures are probably subacute or old. 2. Mild kyphosis. David Coronel MD Cervical Spine MRI 10/16/17 0000 Signed Impressions: Service Date/Time: Monday, October 16, 2017 14:51 - CONCLUSION: 1. Mild to moderate degenerative disc disease. No significant canal stenosis, cord impingement or cord edema. David Coronel MD Brain MRI 10/16/17 0000 Signed Impressions: Service Date/Time: Monday, October 16, 2017 14:51 - CONCLUSION: 1. Cortical atrophy and advanced microvascular ischemic demyelinative change. There is ventricular dilation in proportion to sulci atrophy. Darin Light MD Chest X-Ray 10/13/17 1205 Signed Impressions: Service Date/Time: September 12:09 - CONCLUSION: 1. Left apical density. Outpatient CT chest. 2. No acute cardiopulmonary process. Chemo Bonner MD Head CT 10/13/17 0916 Signed Impressions: Service Date/Time: September 09:39 - CONCLUSION: 1. Marked ventriculomegaly suggesting severe central cerebral atrophy versus hydrocephalus. Clinical correlation is recommended. 2. Severe periventricular and subcortical white matter small vessel ischemic changes bilaterally. 3. No acute hemorrhage, midline shift or extra-axial fluid collections. 4. Mucosal thickening involving the left sphenoid sinus. Gordon Cain MD Objective Remarks awake and alert, oriented x 3 anicteric lungs- no rales regular rhythm abdomen- soft, + bowel sounds, post op dressing in place extremities no edema Procedures 10/17 Exploratory laparotomy with rectopexy. Date of Insertion: Oct 17, 2017 A/P Problem List: (1) Rectal prolapse ICD Code: K62.3 - Rectal prolapse Status: Acute Assessment and Plan 87-year-old female with: Rectal prolapse. Progressive disability from prolapse. S/P explore lap with rectopexy 10/17 CRS ff advance diet if continues to do well Urinary tract infection. S/P Tx with Cipro. Repeat UA is negative. Leukocytosis, improving. Monitor. Likely secondary to above infectious process versus rectal prolapse, continue to monitor Rash on upper extremities patient with very dry skin. Patient /family says she has rash on/off. On benadryl po will try to limit as patient at risk of falls. Will DC benadryl and start prednisone PO x 5 days . Give one dose IV solumedrol. Can add benadryl cream as need. Emolient cream as need, Zn oxide, emla cream. Rash and pruritus improved significantly. Fall from bed per patient did not hit any bodily parts and she has no pain, no lacerations. Fall precautions. PT has evaluated patient recommends home with home health. Patient is at baseline mentation. Fall precautions. states baseline- uses a walker and a wheelchair "my son won't ;et me walk on my own" PT consult to eval- evaluate gait Marked ventriculomegaly suggesting severe central cerebral atrophy vs hydrocephalus, severe periventricular and subcortical white matter and small vessel ischemic changes bilateral by CT head. no CT for comparison. Will consult neurology for further evaluation. B12, folate normal PT consult to evaluate gait Vit D deficiency vit D level of 14. Start ergocalciferol q7 days. Monitor level as OP. Severe protein calorie malnutrition. BMI is 16.9 patient with bitemporal sunken , muscle atrophy. Add ensure. dietitian consulted Incidental finding on CXR left apical density. Recommended OP CT follow up imaging ordered for DC. Patient notified and expressed understanding. 10/15/17 Attempted to talk with her son also regarding follow up however the son doesn't want to hear what I have to say regarding patient medical condition. Son at bedside 10/15/17, pleasant able to talk with him, he will follow up also for CT as OP, expressed understanding. CT chest was ordered as OP Aortic stenosis, Hypertension, History of SVT -on metoprolol Generalized weakness PT daily PT recommends home with home health Out of bed to chair daily CAse management consult- Home with health care nursing and PT DC if cleared with CRS Eddie Mai MD Oct 19, 2017 18:01
--- NOTE | 2017-10-19 19:35 | HHI.DCPOC ---
Discharge Care Plan Diagnosis: (1) Cognitive impairment (2) Rectal prolapse Your Health Problems Are: Difficulty with ADL Exercise Tolerance Goals to Promote Your Health * To prevent worsening of your condition and complications * To maintain your health at the optimal level Directions to Meet Your Goals Take your medications as prescribed Follow your dietary instruction Follow activity as directed Keep your appointments as scheduled Take your immunizations and boosters as scheduled If your symptoms worsen call your PCP, if no PCP go to Urgent Care Center or Emergency Room Smoking is Dangerous to Your Health. Avoid second hand smoke Call the 24-hour hour crisis hotline for domestic abuse at Chris Gorman MD Oct 19, 2017 19:35
--- NOTE | 2017-10-19 19:36 | HHI.FF ---
Face to Face Verification Diagnosis: (1) Rectal prolapse (2) Cognitive impairment Physical Therapy Order: Evaluate and Treat, Improve ambulation, Strength and gait training Home Health Nursing Order: Medical education Signs/symptoms of disease process Medication education-adverse effect Wound care and dressing changes Nursing assessment with vital signs I have seen patient Monika Ruffin on 10/19/17. My clinical findings support the need for the requested home health care services because: Deconditioned w/ increased weakness I certify that my clinical findings support that this patient is homebound because: Unsafe to leave home unassisted Need for psychosocial assistance Chris Gorman MD Oct 19, 2017 19:36
[2017-10-19] MEDS: MIRTAZAPINE 15 MG TAB PO SCH (22:22)
--- NOTE | 2017-10-19 22:45 | HHI.PR ---
Subjective Remarks C/R Surg POD #2 Afebrile, VSS UO good OOB started PO Objective - Vital Signs Date Time Temp Pulse Resp B/P (MAP) Pulse Ox O2 Delivery O2 Flow Rate FiO2 10/19/17 22:00 18 10/19/17 20:00 99.2 113 123/65 (84) 92 10/19/17 14:05 Nasal Cannula 2.00 Result Diagram: 10/18/1721410/18/17 0215 Objective Remarks PE alert Abd - soft, min tympany wound dry A/P Assessment and Plan Imp: OOB decr IVF DC Blair Combs MD Oct 19, 2017 22:45
[2017-10-20] VITALS (8 sets, daily range): BP systolic 105–136; BP diastolic 58–73; PULSE 56–99; RESP 17–20; TEMP 96.6–99.2; O2SAT 92–98
[2017-10-20] MEDS: D5-NS + KCL 20 MEQ INJ 1,000 ML IV SCH ×2 (04:25→21:37)
[2017-10-20] MEDS: PCA - TOTAL MG MORPHINE DELIVERED PER SHIFT SCH (06:00)
[2017-10-20 06:14] LABS: AUTOMATED NEUTROPHIL # 9.9 TH/MM3 (1.8-7.7); BASOPHIL # 0.1 TH/MM3 (0-0.2); BASOPHIL % 0.6 % (0.0-2.0); EOSINOPHIL # 0.9 TH/MM3 (0-0.4); HEMATOCRIT 34.8 % (35.0-46.0); HEMOGLOBIN 11.7 GM/DL (11.6-15.3); LYMPH % 7.2 % (9.0-44.0); LYMPHOCYTE # 0.9 TH/MM3 (1.0-4.8); MEAN CELL VOLUME 91.2 FL (80.0-100.0); MEAN CORPUSCULAR HEMOGLOBIN 30.5 PG (27.0-34.0); MEAN CORPUSCULAR HGB CONC 33.5 % (32.0-36.0); MEAN PLATELET VOLUME 7.5 FL (7.0-11.0); MONO % 7.2 % (0.0-8.0); MONOCYTE # 0.9 TH/MM3 (0-0.9); PLATELET COUNT 320 TH/MM3 (150-450); RED BLOOD COUNT 3.82 MIL/MM3 (4.00-5.30); RED CELL DISTRIBUTION WIDTH 13.9 % (11.6-17.2); WHITE BLOOD COUNT 12.7 TH/MM3 (4.0-11.0)
[2017-10-20 06:35] LABS: BICARBONATE 23.5 MEQ/L (21.0-32.0); CALCIUM 8.1 MG/DL (8.5-10.1); CREATININE 0.61 MG/DL (0.50-1.00); MAGNESIUM 1.8 MG/DL (1.5-2.5)
--- NOTE | 2017-10-20 08:12 | HHI.PR ---
Subjective Remarks C/R Surg POD #3 Afebrile, VSS UO good OOB started PO lax prn Objective - Vital Signs Date Time Temp Pulse Resp B/P (MAP) Pulse Ox O2 Delivery O2 Flow Rate FiO2 10/20/17 06:00 18 10/20/17 04:00 97.4 94 105/58 (74) 94 10/19/17 21:14 21 10/19/17 14:05 Nasal Cannula 2.00 Result Diagram: 10/20/17 0543 10/20/17 0543 Objective Remarks PE alert Abd - soft, min tympany wound dry, no stool A/P Assessment and Plan Imp: OOB decr IVF dc plans Blair Mason MD Oct 20, 2017 08:12
[2017-10-20] MEDS ORDERED: METOCLOPRAMIDE HCL 10 MG/2 ML VIAL IVS PRN (08:15)
[2017-10-20] MEDS: SODIUM CHLORIDE 0.9% FLUSH 10 ML FLUSH IV FLUSH SCH ×2 (09:00→21:37)
[2017-10-20] MEDS: PANTOPRAZOLE SOD 40 MG DELAYED RELEASE TAB PO SCH (09:51)
[2017-10-20] MEDS: SERTRALINE HCL 50 MG TAB PO SCH (09:51)
[2017-10-20] MEDS: ATORVASTATIN 20 MG TAB PO SCH (09:51)
[2017-10-20] MEDS: LACTOBACILLUS ACIDOPHILUS TAB PO SCH (09:51)
[2017-10-20] MEDS: POLYETHYLENE GLYCOL 17 GM PKG PO SCH (09:51)
[2017-10-20] MEDS: METOPROLOL SUCCINATE 25 MG EXTENDED RELEASE TAB PO SCH (09:51)
[2017-10-20] MEDS: predniSONE 20 MG TAB PO SCH (09:51)
[2017-10-20] MEDS: NYSTAT/DIPHENHY/LIDO MOUTHWASH (Adult) 120ML SWISH-SWAL SCH ×4 (09:58→21:32)
--- NOTE | 2017-10-20 11:18 | HHI.PR ---
Subjective Remarks Follow-up rectal prolapse. 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 Tolerating soft diet. She is passing gas but no bowel movement yet. Discussed with nursing Objective Vitals Vital Signs Date Time Temp Pulse Resp B/P (MAP) Pulse Ox O2 Delivery O2 Flow Rate FiO2 10/20/17 09:02 95 Nasal Cannula 2.00 10/20/17 06:00 18 10/20/17 04:00 97.4 94 20 105/58 (74) 94 10/20/17 00:00 99.2 99 20 127/61 (83) 92 10/19/17 22:00 18 10/19/17 21:32 18 10/19/17 21:14 21 10/19/17 20:55 Nasal Cannula 2.00 10/19/17 20:00 99.2 113 22 123/65 (84) 92 10/19/17 16:00 97.8 89 17 92/55 (67) 90 10/19/17 14:05 96 Nasal Cannula 2.00 10/19/17 13:03 18 10/19/17 13:00 94 10/19/17 12:00 90 10/19/17 11:32 97 Nasal Cannula 2.00 10/19/17 11:30 98.4 88 18 114/60 (78) 97 I/O 10/19/17 10/19/17 10/19/17 10/20/17 10/20/17 10/20/17 07:00 15:00 23:00 07:00 15:00 23:00 Intake Total 1509 ml 750 ml 0 ml 0 ml Output Total 330 ml 350 ml Balance 1179 ml 400 ml 0 ml 0 ml Intake Oral 780 ml 750 ml 0 ml 0 ml IV Total 729 ml Output Urine Total 330 ml 350 ml # Voids 0 1 # Bowel Movements 0 0 0 Result Diagram: 10/20/17 0543 10/20/17 0543 Imaging Last Impressions Thoracic Spine MRI 10/16/17 0000 Signed Impressions: Service Date/Time: Monday, October 16, 2017 14:51 - CONCLUSION: 1. Moderate compression deformities of T7, T9, T10 and T12. Mild retropulsion at T7. Mild osteophytic ridging at T9 and T10. These efface anterior thecal sac but there is no cord impingement or cord edema. Fractures are probably subacute or old. 2. Mild kyphosis. David Coronel MD Cervical Spine MRI 10/16/17 0000 Signed Impressions: Service Date/Time: Monday, October 16, 2017 14:51 - CONCLUSION: 1. Mild to moderate degenerative disc disease. No significant canal stenosis, cord impingement or cord edema. David Coronel MD Brain MRI 10/16/17 0000 Signed Impressions: Service Date/Time: Monday, October 16, 2017 14:51 - CONCLUSION: 1. Cortical atrophy and advanced microvascular ischemic demyelinative change. There is ventricular dilation in proportion to sulci atrophy. Darin Light MD Chest X-Ray 10/13/17 1205 Signed Impressions: Service Date/Time: September 12:09 - CONCLUSION: 1. Left apical density. Outpatient CT chest. 2. No acute cardiopulmonary process. Chemo Bonner MD Head CT 10/13/17 0916 Signed Impressions: Service Date/Time: September 09:39 - CONCLUSION: 1. Marked ventriculomegaly suggesting severe central cerebral atrophy versus hydrocephalus. Clinical correlation is recommended. 2. Severe periventricular and subcortical white matter small vessel ischemic changes bilaterally. 3. No acute hemorrhage, midline shift or extra-axial fluid collections. 4. Mucosal thickening involving the left sphenoid sinus. Gordon Cain MD Objective Remarks awake and alert, oriented x 3 anicteric lungs- no rales regular rhythm abdomen- soft, + bowel sounds, post op dressing in place extremities no edema Grossly nonfocal Procedures 10/17 Exploratory laparotomy with rectopexy. Date of Insertion: Oct 17, 2017 A/P Problem List: (1) Rectal prolapse ICD Code: K62.3 - Rectal prolapse Status: Acute Assessment and Plan 87-year-old female with: Rectal prolapse. Progressive disability from prolapse. S/P explore lap with rectopexy 10/17. 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 S/P Tx with Cipro. Repeat UA is negative. Leukocytosis, improving likely secondary to above infectious process versus rectal prolapse, continue to monitor Rash on upper extremities patient with very dry skin. Patient /family says she has rash on/off. On benadryl po will try to limit as patient at risk of falls. Will DC benadryl and start prednisone PO x 5 days last dose tomorrow. Give one dose IV solumedrol. Can add benadryl cream as need. Emolient cream as need, Zn oxide, emla cream. Rash and pruritus improved significantly. Fall from bed per patient did not hit any bodily parts and she has no pain, no lacerations. Fall precautions. PT has evaluated patient recommends home with home health. Patient is at baseline mentation. Fall precautions. states baseline- uses a walker and a wheelchair "my son won't let me walk on my own" PT consult to eval- evaluate gait. Recommended home health care Marked ventriculomegaly suggesting severe central cerebral atrophy vs hydrocephalus, severe periventricular and subcortical white matter and small vessel ischemic changes bilateral by CT head. no CT for comparison. 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 Ct ergocalciferol. Monitor level as OP. Severe protein calorie malnutrition. BMI is 16.9 patient with bitemporal sunken , muscle atrophy. Added ensure. Dietitian consulted Incidental finding on CXR left apical density. Recommended OP CT follow up imaging ordered for DC. Patient notified and expressed understanding. Aortic stenosis, Hypertension, History of SVT -on metoprolol DVT prophylaxis with SCD and early ambulation. Pharmacological prophylaxis if okay with CRS Discharge Planning DC if cleared with CRS Chris Gorman MD Oct 20, 2017 11:18
[2017-10-20] MEDS: MIRTAZAPINE 15 MG TAB PO SCH (21:32)
[2017-10-21] VITALS (9 sets, daily range): BP systolic 113–154; BP diastolic 60–85; PULSE 69–110; RESP 18–20; TEMP 96.3–98.5; O2SAT 92–96
[2017-10-21] MEDS: POLYETHYLENE GLYCOL 17 GM PKG PO SCH (08:35)
[2017-10-21] MEDS: SERTRALINE HCL 50 MG TAB PO SCH (08:35)
[2017-10-21] MEDS: METOPROLOL SUCCINATE 25 MG EXTENDED RELEASE TAB PO SCH (08:35)
[2017-10-21] MEDS: PANTOPRAZOLE SOD 40 MG DELAYED RELEASE TAB PO SCH (08:35)
[2017-10-21] MEDS: ATORVASTATIN 20 MG TAB PO SCH (08:35)
[2017-10-21] MEDS: LACTOBACILLUS ACIDOPHILUS TAB PO SCH (08:35)
[2017-10-21] MEDS: SODIUM CHLORIDE 0.9% FLUSH 10 ML FLUSH IV FLUSH SCH ×2 (08:38→21:20)
[2017-10-21] MEDS: NYSTAT/DIPHENHY/LIDO MOUTHWASH (Adult) 120ML SWISH-SWAL SCH ×5 (08:38→21:23)
[2017-10-21] MEDS ORDERED: RESP: ALBUTEROL CONC 2.5 MG/0.5 ML NEB NEB PRN (10:00)
--- NOTE | 2017-10-21 10:27 | HHI.PR ---
Subjective Remarks f/u for rectal prolapse. patient still on oxygen c/o SOB. she failed the walk test. When PT stated recommended SNF she was very upset and stated she is going home with her son. denied any hx of COPD or asthma but stated she stopped tobacco use a long time ago. no other acute events. Objective Vitals Vital Signs Date Time Temp Pulse Resp B/P (MAP) Pulse Ox O2 Delivery O2 Flow Rate FiO2 10/21/17 08:00 96.3 90 18 154/73 (100) 95 10/21/17 04:00 98.0 69 20 137/72 (93) 92 10/21/17 00:00 95 10/21/17 00:00 97.0 105 20 148/85 (106) 93 10/20/17 21:00 Nasal Cannula 3.00 21 10/20/17 20:00 96.6 80 17 136/65 (88) 95 10/20/17 17:28 98 Nasal Cannula 3.00 10/20/17 16:00 97.0 83 18 132/73 (92) 93 10/20/17 12:00 97.4 87 18 125/69 (87) 98 I/O 10/20/17 10/20/17 10/20/17 10/21/17 10/21/17 10/21/17 07:00 15:00 23:00 07:00 15:00 23:00 Intake Total 0 ml 1600 ml 220 ml Output Total 400 ml Balance 0 ml 1600 ml -180 ml Intake Oral 0 ml 600 ml 220 ml IV Total 1000 ml Output Urine Total 400 ml # Voids 1 6 # Bowel Movements 0 0 0 Result Diagram: 10/20/17 0543 10/20/17 0543 Objective Remarks GENERAL: in NAD CARDIOVASCULAR: Regular rate and rhythm without murmurs, gallops, or rubs. RESPIRATORY: B/L expiratory wheezing. No accessory muscle use. GASTROINTESTINAL: Abdomen soft, non-tender, nondistended. MUSCULOSKELETAL: No cyanosis, or edema. BACK: Nontender without obvious deformity. No CVA tenderness. Procedures 10/17 Exploratory laparotomy with rectopexy. Medications and IVs Current Medications Sodium Chloride (NS Flush) 2 ml UNSCH PRN IV FLUSH FLUSH AFTER USING IV ACCESS ; Start 10/13/17 at 09:30; Stop 10/13/17 at 14:54; Status DC Sodium Chloride 500 ml @ 500 mls/hr BOLUS ONCE IV Last administered on at 13:35; Start 10/13/17 at 12:15; Stop 10/13/17 at 13:14; Status DC Sodium Chloride (NS Flush) 2 ml UNSCH PRN IV FLUSH FLUSH AFTER USING IV ACCESS ; Start 10/13/17 at 14:15 Sodium Chloride (NS Flush) 2 ml BID IV FLUSH Last administered on 10/20/17at 21: 37; Start 10/13/17 at 21:00 Acetaminophen (Tylenol) 650 mg Q4H PRN PO TEMP > 100.4; Start 10/13/17 at 14:15 ; Stop 10/15/17 at 11:18; Status DC Ondansetron HCl (Zofran Inj) 4 mg Q6H PRN IVP NAUSEA OR VOMITING; Start at 14:15 Acetaminophen (Tylenol) 650 mg Q6H PRN PO PAIN SCALE 1 TO 2/fever/headac; Start 10/13/17 at 14:15 Acetaminophen/ Hydrocodone Bitart ([employer] [place] Mdl 5-325 Mg) 1 tab Q4H PRN PO PAIN SCALE 3 TO 10; Start 10/13/17 at 14:15; Stop 10/15/17 at 11:19; Status DC Naloxone HCl (Narcan Inj) 0.4 mg UNSCH PRN IV PUSH SEE LABEL COMMENTS; Start at 14:15; Stop 10/17/17 at 19:14; Status DC Ciprofloxacin (Cipro) 500 mg BID PO Last administered on 10/15/17at 09:34; Start 10/13/17 at 21:00; Stop 10/15/17 at 10:58; Status DC Ferrous Sulfate (Ferrous Sulfate) 325 mg DAILY@1200 PO ; Start 10/14/17 at 12:00 ; Stop 10/14/17 at 12:00; Status DC Metoprolol Succinate (Toprol Xl) 25 mg DAILY PO Last administered on 10/21/17at 08:35; Start 10/14/17 at 09:00 Mirtazapine (Remeron) 30 mg HS PO Last administered on 10/20/17at 21:32; Start 10/13/17 at 21:00 Atorvastatin Calcium (Lipitor) 20 mg DAILY PO Last administered on 10/21/17at 08 :35; Start 10/14/17 at 09:00 Sertraline HCl (Zoloft) 25 mg DAILY PO Last administered on 10/21/17at 08:35; Start 10/14/17 at 09:00 Miscellaneous (Pill Splitter) 1 ea UNSCH PRN OTHER SEE LABEL COMMENTS; Start at 15:15 Magnesium Citrate (Citroma Liq) 150 ml ONCE ONCE PO Last administered on at 00:14; Start 10/13/17 at 23:30; Stop 10/13/17 at 23:31; Status DC Magnesium Citrate (Citroma Liq) 150 ml UNSCH X1 PRN PO IF NEEDED Last administered on 10/14/17at 05:32; Start 10/14/17 at 04:00; Stop 10/14/17 at 04:30 ; Status DC Clotrimazole (Mycelex) 10 mg 5 TIMES A DAY BUCCAL Last administered on at 09:43; Start 10/14/17 at 14:00; Stop 10/16/17 at 10:45; Status DC Diphenhydramine HCl (Benadryl) 25 mg Q6H PRN PO RASH, Itching Last administered on 10/16/17at 08:24; Start 10/14/17 at 16:00; Stop 10/16/17 at 11:04 ; Status DC Lactated Ringer's 1,000 ml @ 30 mls/hr Q24H PRN IV SEE LABEL COMMENTS; Start at 08:00; Stop 10/17/17 at 18:18; Status DC Sodium Chloride 500 ml @ 30 mls/hr [id number] PRN IV SEE LABEL COMMENTS; Start at 08:00; Stop 10/17/17 at 18:59; Status DC Metoprolol Tartrate (Lopressor) 25 mg [employer]ARD[employer]IC PRN PO SEE LABEL COMMENTS; Start 10/15/17 at 08:00; Stop 10/17/17 at 18:59; Status DC Povidone Iodine (Betadine 5% Antisepsis Kit) 1 applic [employer]CH[employer]IC PRN EACH NARE SEE LABEL COMMENTS; Start 10/15/17 at 08:00; Stop 10/17/17 at 18:59; Status DC Chlorhexidine Gluconate (Chlorhexidine 2% Cloth) 3 pack [employer]ARD[employer]CH[employer]IC PRN TOPICAL SEE LABEL COMMENTS; Start 10/15/17 at 08:00; Stop 10/18/17 at 07:59; Status DC Multi-Ingredient Mouthwash/Gargle (Magic Mouthwash Adult Liq) 5 ml QID SWISH- SWAL Last administered on 10/21/17at 08:38; Start 10/15/17 at 13:00; Stop at 12:59 Enalaprilat (Vasotec Inj) 2.5 mg Q6H PRN IV PUSH SBP>160, DBP>90; Start at 11:45 Ergocalciferol (Drisdol) 50,000 units Q7D PO Last administered on 10/16/17at 13: 17; Start 10/16/17 at 11:00 Prednisone (Deltasone) 40 mg DAILY PO Last administered on 10/20/17at 09:51; Start 10/17/17 at 09:00; Stop 10/21/17 at 08:59; Status DC Methylprednisolone Sodium Succinate (SoluMEDROL INJ) 40 mg ONCE ONCE IV PUSH Last administered on 10/16/17 13:16; Start 10/16/17 at 11:00; Stop 10/16/17 at 11:01; Status DC Lactobacillus Acidophilus (Lactinex) 1 tab DAILY PO Last administered on at 08:35; Start 10/16/17 at 11:00 Lidocaine/ Prilocaine (Emla Cream) 1 applic UNSCH PRN TOPICAL pruritus; Start 10/16/17 at 11:00 Zinc Oxide (Zinc Oxide 20% Oint) 1 applic ONCE ONCE TOPICAL Last administered on 10/16/17at 13:17; Start 10/16/17 at 11:00; Stop 10/16/17 at 11:01; Status DC Zinc Oxide (Zinc Oxide 20% Oint) 1 applic UNSCH PRN TOPICAL dry skin/ pruritus Last administered on 10/16/17at 13:16; Start 10/16/17 at 11:00 Metronidazole 100 ml @ As Directed STK-MED ONCE IV Last administered on at 17:10; Start 10/17/17 at 17:10; Stop 10/17/17 at 17:11; Status DC Cefazolin Sodium (Ancef Inj) 1,000 mg ONCE ONCE IV Last administered on at 17:09; Start 10/17/17 at 17:32; Stop 10/17/17 at 17:33; Status DC Acetaminophen 100 ml @ As Directed STK-MED ONCE IV ; Start 10/17/17 at 18:12; Stop 10/17/17 at 18:13; Status DC Potassium Chloride/Dextrose/ Sod Cl 1,000 ml @ 60 mls/hr [id number] IV Last administered on 10/20/17at 21:37; Start 10/17/17 at 18:09; Stop 10/20/17 at 23:55 ; Status DC Cefazolin Sodium 1000 mg/Sodium Chloride 100 ml @ 200 mls/hr Q8H IV Last administered on 10/18/17at 17:31; Start 10/18/17 at 01:00; Stop 10/18/17 at 17:29 ; Status DC Metronidazole 100 ml @ 200 mls/hr Q8H IV Last administered on 10/18/17at 17:34 ; Start 10/18/17 at 01:00; Stop 10/18/17 at 17:29; Status DC Miscellaneous Information (Post-op Orders (for Pharmacy)) STAT ONCE XX ; Start 10/17/17 at 18:15; Stop 10/17/17 at 19:12; Status DC Acetaminophen/ Hydrocodone Bitart ([employer] Mdl 5-325 Mg) 1 tab Q4H PRN PO PAIN SCALE 1 TO 4; Start 10/17/17 at 18:15 Acetaminophen/ Hydrocodone Bitart ([employer] Mdl 5-325 Mg) 2 tab Q4H PRN PO PAIN SCALE 5 TO 10; Start 10/17/17 at 18:15 Ketorolac Tromethamine (Toradol Inj) 15 mg Q6H PRN IVP PAIN SCALE 1 TO 5 Last administered on 10/20/17at 10:44; Start 10/17/17 at 18:15; Stop 10/20/17 at 18:14 ; Status DC Acetaminophen (Tylenol) 650 mg Q4H PRN PO Temperature > 101F; Start 10/17/17 at 18:15 Pantoprazole Sodium (Protonix Inj) 40 mg DAILY IVP ; Start 10/18/17 at 09:00; Stop 10/19/17 at 19:30; Status DC Pantoprazole Sodium (Protonix) 40 mg DAILY PO Last administered on 10/21/17at 08 :35; Start 10/18/17 at 09:00 Metoclopramide HCl (Reglan Inj) 10 mg Q12HR IVS Last administered on 10/19/17at 22:22; Start 10/17/17 at 21:00; Stop 10/20/17 at 08:04; Status DC Ondansetron HCl (Zofran Inj) 4 mg Q6H PRN IV PUSH NAUSEA; Start 10/17/17 at 18: 15; Stop 10/19/17 at 19:30; Status DC Enalaprilat (Vasotec Inj) 1.25 mg Q4H PRN IV PUSH SYS BP GREATER THAN 160 MMHG ; Start 10/17/17 at 18:15; Stop 10/17/17 at 18:18; Status DC Enalaprilat (Vasotec Inj) 2.5 mg Q6H PRN IV PUSH SYS BP GREATER THAN 160 MMHG; Start 10/17/17 at 18:15; Stop 10/19/17 at 19:30; Status DC Benzocaine/Menthol (Chloraseptic Silvia) 1 lozenge UNSCH PRN BUCCAL SORE THROAT; Start 10/17/17 at 18:15 Potassium Chloride 100 ml @ 50 mls/hr UNSCH PRN IV POTASSIUM 3 TO 3.5; Start 10/17/17 at 18:15; Stop 10/19/17 at 19:30; Status DC Potassium Chloride 100 ml @ 25 mls/hr UNSCH PRN IV POTASSIUM LESS THAN 3; Start 10/17/17 at 18:15; Stop 10/19/17 at 19:30; Status DC Miscellaneous Information 1 ONCE ONCE XX ; Start 10/17/17 at 18:15; Stop at 19:03; Status DC Naloxone HCl (Narcan Inj) 0.4 mg UNSCH PRN IV PUSH RESPIRATORY RATE LESS THAN 10; Start 10/17/17 at 18:15; Stop 10/20/17 at 08:04; Status DC Morphine Sulfate (Morphine 1 Mg/ ml ARTIFICIAL FLY TIER) 30 mg UNSCH IV Last administered on at 19:12; Start 10/17/17 at 18:15; Stop 10/20/17 at 08:04; Status DC ARTIFICIAL FLY TIER Dosage Infused (Pha) 1 Q8HR .XX Last administered on 10/20/17at 06:00; Start 10/17/17 at 22:00; Stop 10/20/17 at 08:04; Status DC Acetaminophen 100 ml @ 400 mls/hr Q6H PRN IV PAIN SCALE 6 TO 10; Start at 18:15; Stop 10/19/17 at 19:30; Status DC Ondansetron HCl (*ZOFRAN INJ PERIprocedural ONLY) 4 mg STK-MED ONCE .ROUTE Last administered on 10/17/17at 18:17; Start 10/17/17 at 18:17; Stop 10/17/17 at 18:18; Status DC Fentanyl Citrate (fentaNYL INJ) 100 mcg STK-MED ONCE .ROUTE ; Start 10/17/17 at 18:25; Stop 10/17/17 at 18:26; Status DC Miscellaneous Information ALL NURSING DEPARTME... UNSCH PRN .XX SEE LABEL COMMENTS; Start 10/17/17 at 18:20; Stop 10/18/17 at 18:19; Status DC Lidocaine HCl (Xylocaine-Mpf 1% Inj) 5 ml STK-MED ONCE OTHER ; Start 10/17/17 at 12:00; Stop 10/18/17 at 10:20; Status DC Rocuronium [place] (Zemuron Inj) 50 mg STK-MED ONCE IV PUSH ; Start 10/17/17 at 12:00; Stop 10/18/17 at 10:20; Status DC Neostigmine Methylsulfate (Prostigmine Inj) 5 mg STK-MED ONCE IV PUSH ; Start at 12:00; Stop 10/18/17 at 10:20; Status DC Glycopyrrolate (Robinul Inj) 1 mg STK-MED ONCE IV PUSH ; Start 10/17/17 at 12:00 ; Stop 10/18/17 at 10:20; Status DC Phenylephrine HCl (Neosynephrine/ NS 1000 Mcg/10ml Syr) 1,000 mcg STK-MED ONCE IV ; Start 10/17/17 at 12:00; Stop 10/18/17 at 10:20; Status DC Ephedrine Sulfate (ePHEDrine/NS 25 MG/5 ML SYR) 25 mg STK-MED ONCE IV ; Start at 12:00; Stop 10/18/17 at 10:20; Status DC Ondansetron HCl (Zofran Inj) 4 mg STK-MED ONCE IV PUSH ; Start 10/17/17 at 12:00 ; Stop 10/18/17 at 10:20; Status DC Cefazolin Sodium (Ancef Inj) 1,000 mg STK-MED ONCE IV ; Start 10/17/17 at 12:00 ; Stop 10/18/17 at 10:20; Status DC Polyethylene Glycol (Miralax) 17 gm DAILY PO Last administered on 10/21/17at 08: 35; Start 10/20/17 at 09:00 Metoclopramide HCl (Reglan Inj) 10 mg Q12HR PRN IVS NAUSEA; Start 10/20/17 at 08:15 Albuterol/ Ipratropium (Duoneb Neb) 1 ampule Q4HR NEB NEB ; Start 10/21/17 at 12:00 Albuterol Sulfate (Albuterol Concentrated Neb) 2.5 mg Q2HR NEB PRN NEB wheezing ; Start 10/21/17 at 10:00 Methylprednisolone Sodium Succinate (SoluMEDROL INJ) 40 mg Q6H IV PUSH ; Start 10/21/17 at 11:00 Date of Insertion: Oct 17, 2017 A/P Problem List: (1) Rectal prolapse ICD Code: K62.3 - Rectal prolapse Status: Acute Assessment and Plan 87-year-old female with: Rectal prolapse. -Progressive disability from prolapse. S/P explore lap with rectopexy 10/17. on oral medication. Urinary tract infection. - S/P Tx with Cipro. Repeat UA is negative. Leukocytosis - improving likely secondary to above infectious process versus rectal prolapse , continue to monitor Rash on upper extremities patient with very dry skin. -Patient /family says she has rash on/off. s/s steroid use. -Emolient cream as need, Zn oxide, emla cream. Rash and pruritus improved significantly. Marked ventriculomegaly suggesting severe central cerebral atrophy vs hydrocephalus, severe periventricular and subcortical white matter and small vessel ischemic changes bilateral by CT head. no CT for comparison. 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 - Ct ergocalciferol. Monitor level as OP. Severe protein calorie malnutrition. -BMI is 16.9 patient with bitemporal sunken, muscle atrophy. on ensure. Dietitian consulted Incidental finding on CXR left apical density. - Recommended OP CT follow up imaging ordered for DC. Patient notified and expressed understanding. Aortic stenosis, Hypertension, History of SVT -on metoprolol DVT prophylaxis with SCD and early ambulation. Pharmacological prophylaxis if okay with CRS Discharge Planning due to new onset hypoxia and wheezing need to treat with IV solumedrol. once medical stable d/c to SNF. Rut Castro MD Oct 21, 2017 10:27
[2017-10-21] MEDS: methylPREDNISolone SOD SUCC 40 MG/1 ML VIAL IV PUSH SCH ×3 (11:54→23:24)
[2017-10-21] MEDS: RESP: ALBUTEROL 2.5 MG/IPRATROPIUM 0.5 MG NEB (SCH) NEB ×3 (12:45→19:38)
--- NOTE | 2017-10-21 19:58 | EKG ---
Date Performed: 10/21/2017 Time Performed: 08:19:51 PTAGE: 87 years EKG: SINUS TACHYCARDIA POSSIBLE LEFT ATRIAL ENLARGEMENT Since previous tracing, no significant c hange noted ABNORMAL RHYTHM ECG PREVIOUS TRACING : 10/17/2017 04.58 DOCTOR: Imer Ward Interpretating Date/Time 10/21/2017 19:54:20
[2017-10-21] MEDS: MIRTAZAPINE 15 MG TAB PO SCH (21:18)
--- NOTE | 2017-10-21 22:27 | HHI.PR ---
Subjective Remarks C/R Surg POD #4 Afebrile, VSS UO good OOB started PO lax prn Objective - Vital Signs Date Time Temp Pulse Resp B/P (MAP) Pulse Ox O2 Delivery O2 Flow Rate FiO2 10/21/17 20:00 98.5 97 20 114/60 (78) 96 10/21/17 19:40 Nasal Cannula 3.00 10/20/17 21:00 21 Result Diagram: 10/20/17 0543 10/20/17 0543 Objective Remarks PE alert Abd - soft, min tympany wound dry, no stool A/P Assessment and Plan Imp: OOB decr IVF resp Tx dc plans, with O2 Blair Mason MD Oct 21, 2017 22:27
[2017-10-22] VITALS (8 sets, daily range): BP systolic 119–171; BP diastolic 63–88; PULSE 74–97; RESP 16–18; TEMP 97.2–98.3; O2SAT 92–96
[2017-10-22] MEDS: RESP: ALBUTEROL 2.5 MG/IPRATROPIUM 0.5 MG NEB (SCH) NEB ×5 (05:00→16:34)
[2017-10-22] MEDS: methylPREDNISolone SOD SUCC 40 MG/1 ML VIAL IV PUSH SCH (06:19)
[2017-10-22] MEDS: SODIUM CHLORIDE 0.9% FLUSH 10 ML FLUSH IV FLUSH SCH (09:00)
[2017-10-22] MEDS: METOPROLOL SUCCINATE 25 MG EXTENDED RELEASE TAB PO SCH (09:00)
[2017-10-22] MEDS: NYSTAT/DIPHENHY/LIDO MOUTHWASH (Adult) 120ML SWISH-SWAL SCH (09:00)
[2017-10-22] MEDS: POLYETHYLENE GLYCOL 17 GM PKG PO SCH (09:19)
[2017-10-22] MEDS: SERTRALINE HCL 50 MG TAB PO SCH (09:22)
[2017-10-22] MEDS: PANTOPRAZOLE SOD 40 MG DELAYED RELEASE TAB PO SCH (09:22)
[2017-10-22] MEDS: LACTOBACILLUS ACIDOPHILUS TAB PO SCH (09:22)
[2017-10-22] MEDS: ATORVASTATIN 20 MG TAB PO SCH (09:22)
--- NOTE | 2017-10-22 09:59 | HHI.PR ---
Subjective Remarks Follow-up for rectal prolapse and shortness of breathing Patient stated that breathing has improved drastically. She says she feels a lot better today. She has no other complaints. No acute events overnight. Objective Vitals Vital Signs Date Time Temp Pulse Resp B/P (MAP) Pulse Ox O2 Delivery O2 Flow Rate FiO2 10/22/17 09:53 74 10/22/17 08:00 97.9 88 16 171/81 (111) 92 10/22/17 07:52 96 Nasal Cannula 3.00 10/22/17 04:41 97.2 92 17 165/88 (113) 96 10/22/17 03:38 Nasal Cannula 3.00 10/22/17 00:00 97.7 95 17 130/69 (89) 96 10/22/17 00:00 97 10/21/17 23:14 Nasal Cannula 3.00 10/21/17 20:30 110 10/21/17 20:00 98.5 97 20 114/60 (78) 96 10/21/17 19:40 93 Nasal Cannula 3.00 10/21/17 16:00 98.3 98 20 113/64 (80) 92 10/21/17 12:48 95 Nasal Cannula 3.00 10/21/17 12:00 97.7 91 20 126/65 (85) 95 I/O 10/21/17 10/21/17 10/21/17 10/22/17 10/22/17 10/22/17 07:00 15:00 23:00 07:00 15:00 23:00 Intake Total 220 ml 2560 ml 480 ml Output Total 400 ml 600 ml Balance -180 ml 1960 ml 480 ml Intake Oral 220 ml 2100 ml 480 ml IV Total 460 ml Output Urine Total 400 ml 600 ml # Voids 3 4 # Bowel Movements 0 0 Result Diagram: 10/20/17 0543 10/20/17 0543 Objective Remarks GENERAL: in NAD CARDIOVASCULAR: Regular rate and rhythm without murmurs, gallops, or rubs. RESPIRATORY: Clear to auscultation bilaterally. No accessory muscle use. GASTROINTESTINAL: Abdomen soft, non-tender, nondistended. MUSCULOSKELETAL: No cyanosis, or edema. BACK: Nontender without obvious deformity. No CVA tenderness. Procedures 10/17 Exploratory laparotomy with rectopexy. Medications and IVs Current Medications Sodium Chloride (NS Flush) 2 ml UNSCH PRN IV FLUSH FLUSH AFTER USING IV ACCESS ; Start 10/13/17 at 09:30; Stop 10/13/17 at 14:54; Status DC Sodium Chloride 500 ml @ 500 mls/hr BOLUS ONCE IV Last administered on at 13:35; Start 10/13/17 at 12:15; Stop 10/13/17 at 13:14; Status DC Sodium Chloride (NS Flush) 2 ml UNSCH PRN IV FLUSH FLUSH AFTER USING IV ACCESS ; Start 10/13/17 at 14:15 Sodium Chloride (NS Flush) 2 ml BID IV FLUSH Last administered on 10/22/17at 09: 00; Start 10/13/17 at 21:00 Acetaminophen (Tylenol) 650 mg Q4H PRN PO TEMP > 100.4; Start 10/13/17 at 14:15 ; Stop 10/15/17 at 11:18; Status DC Ondansetron HCl (Zofran Inj) 4 mg Q6H PRN IVP NAUSEA OR VOMITING; Start at 14:15 Acetaminophen (Tylenol) 650 mg Q6H PRN PO PAIN SCALE 1 TO 2/fever/headac; Start 10/13/17 at 14:15 Acetaminophen/ Hydrocodone Bitart (Baxter 5-325 Mg) 1 tab Q4H PRN PO PAIN SCALE 3 TO 10; Start 10/13/17 at 14:15; Stop 10/15/17 at 11:19; Status DC Naloxone HCl (Narcan Inj) 0.4 mg UNSCH PRN IV PUSH SEE LABEL COMMENTS; Start at 14:15; Stop 10/17/17 at 19:14; Status DC Ciprofloxacin (Cipro) 500 mg BID PO Last administered on 10/15/17at 09:34; Start 10/13/17 at 21:00; Stop 10/15/17 at 10:58; Status DC Ferrous Sulfate (Ferrous Sulfate) 325 mg DAILY@1200 PO ; Start 10/14/17 at 12:00 ; Stop 10/14/17 at 12:00; Status DC Metoprolol Succinate (Toprol Xl) 25 mg DAILY PO Last administered on 10/21/17at 08:35; Start 10/14/17 at 09:00 Mirtazapine (Remeron) 30 mg HS PO Last administered on 10/21/17at 21:18; Start 10/13/17 at 21:00 Atorvastatin Calcium (Lipitor) 20 mg DAILY PO Last administered on 10/22/17at 09 :22; Start 10/14/17 at 09:00 Sertraline HCl (Zoloft) 25 mg DAILY PO Last administered on 10/22/17at 09:22; Start 10/14/17 at 09:00 Miscellaneous (Pill Splitter) 1 ea UNSCH PRN OTHER SEE LABEL COMMENTS; Start at 15:15 Magnesium Citrate (Citroma Liq) 150 ml ONCE ONCE PO Last administered on at 00:14; Start 10/13/17 at 23:30; Stop 10/13/17 at 23:31; Status DC Magnesium Citrate (Citroma Liq) 150 ml UNSCH X1 PRN PO IF NEEDED Last administered on 10/14/17at 05:32; Start 10/14/17 at 04:00; Stop 10/14/17 at 04:30 ; Status DC Clotrimazole (Mycelex) 10 mg 5 TIMES A DAY BUCCAL Last administered on at 09:43; Start 10/14/17 at 14:00; Stop 10/16/17 at 10:45; Status DC Diphenhydramine HCl (Benadryl) 25 mg Q6H PRN PO RASH, Itching Last administered on 10/16/17at 08:24; Start 10/14/17 at 16:00; Stop 10/16/17 at 11:04 ; Status DC Lactated Ringer's 1,000 ml @ 30 mls/hr Q24H PRN IV SEE LABEL COMMENTS; Start at 08:00; Stop 10/17/17 at 18:18; Status DC Sodium Chloride 500 ml @ 30 mls/hr [id number] PRN IV SEE LABEL COMMENTS; Start at 08:00; Stop 10/17/17 at 18:59; Status DC Metoprolol Tartrate (Lopressor) 25 mg [employer]SOLE OPERATOR TRACK PRN PO SEE LABEL COMMENTS; Start 10/15/17 at 08:00; Stop 10/17/17 at 18:59; Status DC Povidone Iodine (Betadine 5% Antisepsis Kit) 1 applic [employer]SOLE OPERATOR TRACK PRN EACH NARE SEE LABEL COMMENTS; Start 10/15/17 at 08:00; Stop 10/17/17 at 18:59; Status DC Chlorhexidine Gluconate (Chlorhexidine 2% Cloth) 3 pack [employer]LE OPERATOR TRACK PRN TOPICAL SEE LABEL COMMENTS; Start 10/15/17 at 08:00; Stop 10/18/17 at 07:59; Status DC Multi-Ingredient Mouthwash/Gargle (Magic Mouthwash Adult Liq) 5 ml QID SWISH- SWAL Last administered on 10/22/17 09:00; Start 10/15/17 at 13:00; Stop at 12:59 Enalaprilat (Vasotec Inj) 2.5 mg Q6H PRN IV PUSH SBP>160, DBP>90 Last administered on 10/22/17 03:53; Start 10/15/17 at 11:45 Ergocalciferol (Drisdol) 50,000 units Q7D PO Last administered on 10/16/17 13: 17; Start 10/16/17 at 11:00 Prednisone (Deltasone) 40 mg DAILY PO Last administered on 10/20/17 09:51; Start 10/17/17 at 09:00; Stop 10/21/17 at 08:59; Status DC Methylprednisolone Sodium Succinate (SoluMEDROL INJ) 40 mg ONCE ONCE IV PUSH Last administered on 10/16/17 13:16; Start 10/16/17 at 11:00; Stop 10/16/17 at 11:01; Status DC Lactobacillus Acidophilus (Lactinex) 1 tab DAILY PO Last administered on at 09:22; Start 10/16/17 at 11:00 Lidocaine/ Prilocaine (Emla Cream) 1 applic UNSCH PRN TOPICAL pruritus; Start 10/16/17 at 11:00 Zinc Oxide (Zinc Oxide 20% Oint) 1 applic ONCE ONCE TOPICAL Last administered on 10/16/17at 13:17; Start 10/16/17 at 11:00; Stop 10/16/17 at 11:01; Status DC Zinc Oxide (Zinc Oxide 20% Oint) 1 applic UNSCH PRN TOPICAL dry skin/ pruritus Last administered on 10/16/17at 13:16; Start 10/16/17 at 11:00 Metronidazole 100 ml @ As Directed STK-MED ONCE IV Last administered on at 17:10; Start 10/17/17 at 17:10; Stop 10/17/17 at 17:11; Status DC Cefazolin Sodium (Ancef Inj) 1,000 mg ONCE ONCE IV Last administered on at 17:09; Start 10/17/17 at 17:32; Stop 10/17/17 at 17:33; Status DC Acetaminophen 100 ml @ As Directed STK-MED ONCE IV ; Start 10/17/17 at 18:12; Stop 10/17/17 at 18:13; Status DC Potassium Chloride/Dextrose/ Sod Cl 1,000 ml @ 60 mls/hr [id number] IV Last administered on 10/20/17at 21:37; Start 10/17/17 at 18:09; Stop 10/20/17 at 23:55 ; Status DC Cefazolin Sodium 1000 mg/Sodium Chloride 100 ml @ 200 mls/hr Q8H IV Last administered on 10/18/17at 17:31; Start 10/18/17 at 01:00; Stop 10/18/17 at 17:29 ; Status DC Metronidazole 100 ml @ 200 mls/hr Q8H IV Last administered on 10/18/17at 17:34 ; Start 10/18/17 at 01:00; Stop 10/18/17 at 17:29; Status DC Miscellaneous Information (Post-op Orders (for Pharmacy)) STAT ONCE XX ; Start 10/17/17 at 18:15; Stop 10/17/17 at 19:12; Status DC Acetaminophen/ Hydrocodone Bitart (Baxter 5-325 Mg) 1 tab Q4H PRN PO PAIN SCALE 1 TO 4; Start 10/17/17 at 18:15 Acetaminophen/ Hydrocodone Bitart (Baxter 5-325 Mg) 2 tab Q4H PRN PO PAIN SCALE 5 TO 10; Start 10/17/17 at 18:15 Ketorolac Tromethamine (Toradol Inj) 15 mg Q6H PRN IVP PAIN SCALE 1 TO 5 Last administered on 10/20/17at 10:44; Start 10/17/17 at 18:15; Stop 10/20/17 at 18:14 ; Status DC Acetaminophen (Tylenol) 650 mg Q4H PRN PO Temperature > 101F; Start 10/17/17 at 18:15 Pantoprazole Sodium (Protonix Inj) 40 mg DAILY IVP ; Start 10/18/17 at 09:00; Stop 10/19/17 at 19:30; Status DC Pantoprazole Sodium (Protonix) 40 mg DAILY PO Last administered on 10/22/17at 09 :22; Start 10/18/17 at 09:00 Metoclopramide HCl (Reglan Inj) 10 mg Q12HR IVS Last administered on 10/19/17at 22:22; Start 10/17/17 at 21:00; Stop 10/20/17 at 08:04; Status DC Ondansetron HCl (Zofran Inj) 4 mg Q6H PRN IV PUSH NAUSEA; Start 10/17/17 at 18: 15; Stop 10/19/17 at 19:30; Status DC Enalaprilat (Vasotec Inj) 1.25 mg Q4H PRN IV PUSH SYS BP GREATER THAN 160 MMHG ; Start 10/17/17 at 18:15; Stop 10/17/17 at 18:18; Status DC Enalaprilat (Vasotec Inj) 2.5 mg Q6H PRN IV PUSH SYS BP GREATER THAN 160 MMHG; Start 10/17/17 at 18:15; Stop 10/19/17 at 19:30; Status DC Benzocaine/Menthol (Chloraseptic Silvia) 1 lozenge UNSCH PRN BUCCAL SORE THROAT; Start 10/17/17 at 18:15 Potassium Chloride 100 ml @ 50 mls/hr UNSCH PRN IV POTASSIUM 3 TO 3.5; Start 10/17/17 at 18:15; Stop 10/19/17 at 19:30; Status DC Potassium Chloride 100 ml @ 25 mls/hr UNSCH PRN IV POTASSIUM LESS THAN 3; Start 10/17/17 at 18:15; Stop 10/19/17 at 19:30; Status DC Miscellaneous Information 1 ONCE ONCE XX Last administered on 10/17/17at 18:15 ; Start 10/17/17 at 18:15; Stop 10/17/17 at 19:03; Status DC Naloxone HCl (Narcan Inj) 0.4 mg UNSCH PRN IV PUSH RESPIRATORY RATE LESS THAN 10; Start 10/17/17 at 18:15; Stop 10/20/17 at 08:04; Status DC Morphine Sulfate (Morphine 1 Mg/ ml AIR CONDITIONING UNIT TESTER) 30 mg UNSCH IV Last administered on at 19:12; Start 10/17/17 at 18:15; Stop 10/20/17 at 08:04; Status DC AIR CONDITIONING UNIT TESTER Dosage Infused (Pha) 1 Q8HR .XX Last administered on 10/20/17at 06:00; Start 10/17/17 at 22:00; Stop 10/20/17 at 08:04; Status DC Acetaminophen 100 ml @ 400 mls/hr Q6H PRN IV PAIN SCALE 6 TO 10; Start at 18:15; Stop 10/19/17 at 19:30; Status DC Ondansetron HCl (*ZOFRAN INJ PERIprocedural ONLY) 4 mg STK-MED ONCE .ROUTE Last administered on 10/17/17at 18:17; Start 10/17/17 at 18:17; Stop 10/17/17 at 18:18; Status DC Fentanyl Citrate (fentaNYL INJ) 100 mcg STK-MED ONCE .ROUTE ; Start 10/17/17 at 18:25; Stop 10/17/17 at 18:26; Status DC Miscellaneous Information ALL NURSING DEPARTME... UNSCH PRN .XX SEE LABEL COMMENTS; Start 10/17/17 at 18:20; Stop 10/18/17 at 18:19; Status DC Lidocaine HCl (Xylocaine-Mpf 1% Inj) 5 ml STK-MED ONCE OTHER ; Start 10/17/17 at 12:00; Stop 10/18/17 at 10:20; Status DC Rocuronium [place] (Zemuron Inj) 50 mg STK-MED ONCE IV PUSH ; Start 10/17/17 at 12:00; Stop 10/18/17 at 10:20; Status DC Neostigmine Methylsulfate (Prostigmine Inj) 5 mg STK-MED ONCE IV PUSH ; Start at 12:00; Stop 10/18/17 at 10:20; Status DC Glycopyrrolate (Robinul Inj) 1 mg STK-MED ONCE IV PUSH ; Start 10/17/17 at 12:00 ; Stop 10/18/17 at 10:20; Status DC Phenylephrine HCl (Neosynephrine/ NS 1000 Mcg/10ml Syr) 1,000 mcg STK-MED ONCE IV ; Start 10/17/17 at 12:00; Stop 10/18/17 at 10:20; Status DC Ephedrine Sulfate (ePHEDrine/NS 25 MG/5 ML SYR) 25 mg STK-MED ONCE IV ; Start at 12:00; Stop 10/18/17 at 10:20; Status DC Ondansetron HCl (Zofran Inj) 4 mg STK-MED ONCE IV PUSH ; Start 10/17/17 at 12:00 ; Stop 10/18/17 at 10:20; Status DC Cefazolin Sodium (Ancef Inj) 1,000 mg STK-MED ONCE IV ; Start 10/17/17 at 12:00 ; Stop 10/18/17 at 10:20; Status DC Polyethylene Glycol (Miralax) 17 gm DAILY PO Last administered on 10/22/17at 09: 19; Start 10/20/17 at 09:00 Metoclopramide HCl (Reglan Inj) 10 mg Q12HR PRN IVS NAUSEA; Start 10/20/17 at 08:15 Albuterol/ Ipratropium (Duoneb Neb) 1 ampule Q4HR NEB NEB Last administered on 10/22/17at 07:51; Start 10/21/17 at 12:00 Albuterol Sulfate (Albuterol Concentrated Neb) 2.5 mg Q2HR NEB PRN NEB wheezing ; Start 10/21/17 at 10:00 Methylprednisolone Sodium Succinate (SoluMEDROL INJ) 40 mg Q6H IV PUSH Last administered on 10/22/17at 06:19; Start 10/21/17 at 11:00 Date of Insertion: Oct 17, 2017 A/P Problem List: (1) Rectal prolapse ICD Code: K62.3 - Rectal prolapse Status: Acute Assessment and Plan 87-year-old female with: Rectal prolapse. -Progressive disability from prolapse. S/P explore lap with rectopexy 10/17. on oral medication. Respiratory failure with hypoxia -Patient was found wheezing on exam. She was given Solu-Medrol and duo nebs with drastic improvement today. We will switch to oral prednisone. Urinary tract infection. - S/P Tx with Cipro. Repeat UA is negative. Leukocytosis - improving likely secondary to above infectious process versus rectal prolapse , continue to monitor. Patient also now on Solu-Medrol. Rash on upper extremities patient with very dry skin. -Patient /family says she has rash on/off. s/s steroid use. -Emolient cream as need, Zn oxide, emla cream. Rash and pruritus improved significantly. Marked ventriculomegaly suggesting severe central cerebral atrophy vs hydrocephalus, severe periventricular and subcortical white matter and small vessel ischemic changes bilateral by CT head. no CT for comparison. 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 - Ct ergocalciferol. Monitor level as OP. Severe protein calorie malnutrition. -BMI is 16.9 patient with bitemporal sunken, muscle atrophy. on ensure. Dietitian consulted Incidental finding on CXR left apical density. - Recommended OP CT follow up imaging ordered for DC. Patient notified and expressed understanding. Aortic stenosis, Hypertension, History of SVT -on metoprolol DVT prophylaxis with SCD and early ambulation. Pharmacological prophylaxis if okay with CRS Discharge Planning If cleared by colorectal surgeon patient can be discharged to snf. Rut Castro MD Oct 22, 2017 09:59
[2017-10-22] MEDS ORDERED: HYDR-3516 PO (10:01)
--- NOTE | 2017-10-22 11:51 | RADRPT ---
EXAM DATE/TIME: 10/22/2017 11:31 [facility] COMPARISON: No previous studies available for comparison. INDICATIONS : Distention. MEDICAL HISTORY : Cerebrovascular disease. Rectal prolapse. SURGICAL HISTORY : Hysterectomy. Right hip replacement. ENCOUNTER: Initial ACUITY: 2 days PAIN SCORE: 10/10 LOCATION: Abdomen. FINDINGS: There is no evidence of bowel obstruction, ileus or perforation. Degenerative changes and scoliosis o f the thoracolumbar spine are noted. Multiple compression deformities are noted within the thoracic s pine. Hardware is noted within the right proximal femur. CONCLUSION: No bowel obstruction, ileus or perforation. Degenerative changes and scoliosis of the thoracolumbar s pine as well as multiple compression deformities of the thoracic spine. Gordon Cain MD on October 22, 2017 at 11:47 Board Certified Radiologist. This report was verified electronically.
[2017-10-22] MEDS ORDERED: POLY17S PO (14:14)
[2017-10-22] MEDS ORDERED: Albuterol-Ipratropium Neb NEB (14:14)
[2017-10-22] MEDS ORDERED: ZOLO50TA PO (14:14)
[2017-10-22] MEDS ORDERED: [UNRECOGNIZED DRUG - OTHER] TOPICAL (14:14)
[2017-10-22] MEDS ORDERED: VITA500012 PO (14:14)
[2017-10-22] MEDS ORDERED: LACT PO (14:14)
[2017-10-22] MEDS ORDERED: Zinc Oxide 20% Oint TOPICAL (14:14)
[2017-10-22] MEDS ORDERED: PRED20 PO (14:14)
[2017-10-22] MEDS ORDERED: PANT40TA3 PO (14:14)
--- NOTE | 2017-10-22 14:20 | HHI.DS ---
Discharge Summary Admission Date Oct 17, 2017 at 13:26 Discharge Date: Oct 22, 2017 Admitting Diagnosis (1) Rectal prolapse ICD Code: K62.3 - Rectal prolapse Diagnosis: Principal Status: Acute (2) Reactive airway disease ICD Code: J45.909 - Unspecified asthma, uncomplicated Diagnosis: Principal (3) Cognitive impairment ICD Code: R41.89 - Other symptoms and signs involving cognitive functions and awareness Diagnosis: Secondary Status: Chronic Procedures 10/17 Exploratory laparotomy with rectopexy. Brief History - From Admission 87-year-old female with a known history of rectal prolapse was recently discharged from [facility] on 10/12/17 after a 2 day stay was brought back to the hospital for readmission and evaluation again for rectal prolapse. During her recent admission, colorectal surgery was consulted and at a time, has decided patient would have an elective outpatient surgery. After reviewing Dr. Mason's consult note it appears that patient has for many years refused to have surgery. I called patient's son, who was very threatening and very aggressive and I would add quite rude. He states, he will take legal actions if his MOM was to be discharged without undergoing repair. I told him , my intentions were to admit his MOM for a 23hours observation and consult Colorectal surgery. I also told him that, before seeing his MOM, I have talked to renal case manager to see how the patient would meet criteria for discharge to Rehab facility; unfortunately she did not meet inpatient admission criteria.The son spoke about the fact that he had connection to the [facility] of [facility]. He also demanded to speak to the ED physician, however I told him that Dr Anthony was expecting a trauma .The case was also discussed with Thu Becker, who stated she had spoken to the patient's son.Per Dr Morrison ' note, the family could no longer handle the patient at home any longer secondary to multiple complications associated with the current prolapse of the patient; mainly pain, picking at the area, poor hygiene and skin care, fecal incontinence as well as fall. CBC/BMP: 10/20/17 0543 10/20/17 0543 Significant Findings Laboratory Tests Test 3/22/18 05:43 White Blood Count 12.7 TH/MM3 (4.0-11.0) Red Blood Count 3.82 MIL/MM3 (4.00-5.30) Hematocrit 34.8 % (35.0-46.0) Neutrophils (%) (Auto) 78.0 % (16.0-70.0) Lymphocytes (%) (Auto) 7.2 % (9.0-44.0) Eosinophils (%) (Auto) 7.0 % (0.0-4.0) Neutrophils # (Auto) 9.9 TH/MM3 (1.8-7.7) Lymphocytes # (Auto) 0.9 TH/MM3 (1.0-4.8) Eosinophils # (Auto) 0.9 TH/MM3 (0-0.4) Calcium Level 8.1 MG/DL (8.5-10.1) Imaging Last Impressions Thoracic Spine MRI 10/16/17 0000 Signed Impressions: Service Date/Time: Monday, October 16, 2017 14:51 - CONCLUSION: 1. Moderate compression deformities of T7, T9, T10 and T12. Mild retropulsion at T7. Mild osteophytic ridging at T9 and T10. These efface anterior thecal sac but there is no cord impingement or cord edema. Fractures are probably subacute or old. 2. Mild kyphosis. David Coronel MD Cervical Spine MRI 10/16/17 0000 Signed Impressions: Service Date/Time: Monday, October 16, 2017 14:51 - CONCLUSION: 1. Mild to moderate degenerative disc disease. No significant canal stenosis, cord impingement or cord edema. David Coronel MD Brain MRI 10/16/17 0000 Signed Impressions: Service Date/Time: Monday, October 16, 2017 14:51 - CONCLUSION: 1. Cortical atrophy and advanced microvascular ischemic demyelinative change. There is ventricular dilation in proportion to sulci atrophy. Darin Light MD Chest X-Ray 10/13/17 1205 Signed Impressions: Service Date/Time: September 12:09 - CONCLUSION: 1. Left apical density. Outpatient CT chest. 2. No acute cardiopulmonary process. Chemo Bonner MD Head CT 10/13/17 0916 Signed Impressions: Service Date/Time: September 09:39 - CONCLUSION: 1. Marked ventriculomegaly suggesting severe central cerebral atrophy versus hydrocephalus. Clinical correlation is recommended. 2. Severe periventricular and subcortical white matter small vessel ischemic changes bilaterally. 3. No acute hemorrhage, midline shift or extra-axial fluid collections. 4. Mucosal thickening involving the left sphenoid sinus. Gordon Cain MD PE at Discharge GENERAL: in NAD CARDIOVASCULAR: Regular rate and rhythm without murmurs, gallops, or rubs. RESPIRATORY: Clear to auscultation bilaterally. No accessory muscle use. GASTROINTESTINAL: Abdomen soft, non-tender, nondistended. MUSCULOSKELETAL: No cyanosis, or edema. BACK: Nontender without obvious deformity. No CVA tenderness. Pt update on day of discharge Please see progress note from today for updated information. I spoke to Dr. Reyna who is covering for Dr. Mason he stated okay to discharge patient. Hospital Course 87-year-old female with: Rectal prolapse. -Progressive disability from prolapse. S/P explore lap with rectopexy 10/17. After procedure she was transitioned to oral pain medication and did well. Respiratory failure with hypoxia during her hospital course -Patient was found wheezing on exam. She was given Solu-Medrol and duo nebs with resolution of her wheezing the next day. She was then switched to oral prednisone and her dosage of duo nebs decrease. Urinary tract infection. -Patient received her completed treatment of Cipro during hospital course. Leukocytosis - improving likely secondary to above infectious process versus rectal prolapse , continue to monitor. Patient also now on Solu-Medrol. Rash on upper extremities patient with very dry skin. -Patient /family says she has rash on/off. s/s steroid use. -Emolient cream as need, Zn oxide, emla cream. Rash and pruritus improved significantly. Marked ventriculomegaly suggesting severe central cerebral atrophy vs hydrocephalus, severe periventricular and subcortical white matter and small vessel ischemic changes bilateral by CT head. no CT for comparison. 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 - Ct ergocalciferol. Monitor level as OP. Severe protein calorie malnutrition. -BMI is 16.9 patient with bitemporal sunken, muscle atrophy. on ensure. Dietitian consulted Incidental finding on CXR left apical density. - Recommended OP CT follow up imaging ordered for DC. Patient notified and expressed understanding. Aortic stenosis, Hypertension, History of SVT -on metoprolol Pt Condition on Discharge: Stable Discharge Disposition: Discharge to SNF Discharge Time: > 30 minutes Discharge Instructions DIET: Follow Instructions for: Heart Healthy Diet Activities you can perform: See Additionl Instruction Other Activity Instructions: No lifting or pushing Follow up Referrals: Colorectal Surgery - 1 Week Neurology - 1 Week PCP Follow-up - 1 Week New Orders: CT THORAX W CONTRAST (CHEST) New Medications: Ergocalciferol (Ergocalciferol) 50,000 Unit Cap 36027 UNITS PO Q7D for vitamin, #4 CAP 0 Refills Hydrocodone/Acetaminophen (Hydrocodone-Acetamin 5-325 mg) 5 Mg-325 Mg Tablet 1 TAB PO Q4H PRN for moderate to severe pain, #20 TAB 0 Refills Lactobacillus Acidophilus (Acidophilus/l-Sporogenes) 35 Million Cell-25 Million Cell Tab 1 TAB PO DAILY for probiotics, #30 TAB 0 Refills Pantoprazole (Pantoprazole) 40 Mg Tab 40 MG PO DAILY for GERD, #30 TAB 0 Refills Polyethylene Glycol 3350 Powder (Polyethylene Glycol 3350 Powder) 17 Gram Pow 17 GM PO DAILY for constipation, #30 PACK 0 Refills Prednisone (Prednisone) 20 Mg Tab 20 MG PO BID for wheezing, #8 TAB 0 Refills Sertraline (Zoloft) 50 Mg Tab 25 MG PO DAILY for depression, #30 TAB 0 Refills [Albuterol-Ipratropium Neb] () 1 AMPULE NEBU 1 AMPULE NEB Q8HR for wheezing, #1 VIAL 0 Refills wean off nebulizer as tolerated [Lidocaine-Prilocain 2.5% Cream] () 5 APPLIC/5 GM CR 1 APPLIC TOPICAL UNSCH PRN for pruritus, #1 BOTTLE 0 Refills [Zinc Oxide 20% Oint] () 30 APPLIC/30 GM OINT 1 APPLIC TOPICAL UNSCH PRN for dry skin/ pruritus , #1 BOTTLE 0 Refills Continued Medications: Metoprolol Succinate ER 24 HR (Metoprolol Succinate ER 24 HR) 25 Mg Tab 25 MG PO DAILY, #30 TAB 0 Refills Mirtazapine (Mirtazapine) 30 Mg Tab 30 MG PO HS for Depression Control, #30 TAB 0 Refills Rosuvastatin (Crestor) 10 Mg Tab 10 MG PO DAILY for Cholesterol Management, #30 TAB 0 Refills Discontinued Medications: Ciprofloxacin (Ciprofloxacin) 500 Mg Tab 500 MG PO BID for Infection, #14 TAB 0 Refills Docusate Sodium (Stool Softener) 50 Mg Capsule 100 MG PO DAILY Rut Castro MD Oct 22, 2017 14:20
[2017-10-22] MEDS ORDERED: predniSONE 20 MG TAB PO SCH (21:00)
== END 2017-10-22 16:56 | DRG 329 ==
LOC: NEPE 08:58 → NEDA 14:31 → NEPHCDU 17:06 → OBSVTOIN 10-17 13:26 → N07B 10-17 16:02 → HCPC 10-17 20:12 → N07A 10-19 15:15
PROVIDERS: ADMIT Family Medicine; ATTEND Family Medicine
PROC: 0DSPXZZ Reposition Rectum, External Approach (ICD-10-PCS; 2017-10-13)
PROC: 0DSP0ZZ Reposition Rectum, Open Approach (ICD-10-PCS; principal; 2017-10-17 16:46)
DX: K62.3 Rectal prolapse (principal); E43 Unspecified severe protein-calorie malnutrition; J96.91 Respiratory failure, unspecified with hypoxia; G93.89 Other specified disorders of brain; B37.0 Candidal stomatitis; N39.0 Urinary tract infection, site not specified; I35.0 Nonrheumatic aortic (valve) stenosis; Z68.1 Body mass index [BMI] 19.9 or less, adult; J45.909 Unspecified asthma, uncomplicated; R41.89 Other symptoms and signs involving cognitive functions and awareness; R21 Rash and other nonspecific skin eruption; E78.5 Hyperlipidemia, unspecified; E55.9 Vitamin D deficiency, unspecified; I10 Essential (primary) hypertension; Z86.73 Personal history of transient ischemic attack (TIA), and cerebral infarction without residual deficits; Z91.81 History of falling; Z87.891 Personal history of nicotine dependence
CPT/HCPCS: 70450; 70551; 71045; 72141; 72146; 74019; 80048; 80053; 81001; 82140; 82306; 82607; 82746; 83605; 83735; 84134; 84443; 85025; 85027; 85610; 85730; 87086; 93005; 94150; 94640; 94664; 95819; 96361; 96374; G0378; J0131; J0690; J1885; J2270; J2370; J2405; J2710; J2765; J2920; J3010; J3480; J7040; J7512

== ENCOUNTER 2018-03-15 08:31 | Inpatient (IN) ==
[2018-03-15] MEDS ORDERED: Sod Chloride 0.9% Inj 1,000 ML IV.SIG ONE (09:24)
--- NOTE | 2018-03-15 10:06 | XR ---
EXAM DATE: 03/15/2018 9:58 AM EDT AGE/SEX: 87 years / Female INDICATIONS: Pelvic pain after falling. CLINICAL DATA: This is the patient's initial encounter. Patient reports that signs and symptoms have been present for 3 days and indicates a pain score of 8/10. MEDICAL/SURGICAL HISTORY: Cerebrovascular disease. Rectal prolapse. Glaucoma. Hysterectomy. R ight hip replacement. COMPARISON: No prior exams available for comparison. FINDINGS: Diffuse osseous demineralization. There appears to be an old left subcapital fracture secured with 3 osseous screws. Left hip appears to be intact. Degenerative changes of the lower lumbar spine. Dense athetotic calcification of the regional vasculature. CONCLUSION: 1. Diffuse osseous demineralization with no acute fracture. 2. Old right subcapital fracture secured with 3 osseous screws. 3. Atherosclerotic calcification of the regional vasculature. Electronically signed by: Enrique Valles MD 03/15/2018 10:05 AM EDT
--- NOTE | 2018-03-15 10:20 | CT ---
EXAM DATE: 03/15/2018 10:07 AM EDT AGE/SEX: 87 years / Female INDICATIONS: Trip and fall 2 days ago in the bathroom, headache and back pain. CLINICAL DATA: This is the patient's initial encounter. Patient reports that signs and symptoms have been present for 1 day and indicates a pain score of 3/10. MEDICAL/SURGICAL HISTORY: Hypertension. Hysterectomy. RADIATION DOSE: 28.42 CTDI (mGy) COMPARISON: [facility], CT BRAIN W/O CONTRAST, 10/13/2017. . TECHNIQUE: CT of the head without contrast. Using automated exposure control and adjustment of the mA and/or kV according to patient size, radiation dose was kept as low as reasonably achievable to ob tain optimal diagnostic quality images. DICOM format image data is available electronically for revi ew and comparison. FINDINGS: Symmetric ventriculomegaly which appears unchanged, potentially worrisome for normal pressure hydroce phalus. Moderate diminished density in periventricular white matter which is also stable. No evidence of intracranial mass or hemorrhage. Nothing to suggest acute infarction. Mild mucosal disease in the left sphenoid sinus. No evidence of skull fracture. CONCLUSION: Moderate symmetric ventriculomegaly and diminished white matter density. Correlate with likelihood of normal pressure hydrocephalus. No acute injury. . Electronically signed by: Beny Ogden MD 03/15/2018 10:19 AM EDT
[2018-03-15 10:28] LABS: Baso # (Auto) 0.1 th/mm3 (0.0-0.2); Baso % (Auto) 0.9 % (0.0-2.0); Eos # (Auto) 0.1 th/mm3 (0.0-0.4); Eos % (Auto) 0.9 % (0.0-4.0); Hematocrit 38.8 % (35.0-46.0); Lymph # (Auto) 0.8 th/mm3 (1.0-4.8); Mean Corpuscular HGB Conc 33.6 % (32.0-36.0); Mean Corpuscular Hemoglobin 29.5 pg (27.0-34.0); Mean Corpuscular Volume 87.8 fL (80.0-100.0); Mean Platelet Volume 7.6 fL (7.0-11.0); Mono # (Auto) 1.2 th/mm3 (0.0-0.9); Mono % (Auto) 7.9 % (0.0-8.0); Neut # (Auto) 12.8 th/mm3 (1.8-7.7); Neut % (Auto) 85.3 % (16.0-70.0); Platelet Count 217 th/mm3 (150-450); Red Blood Count 4.41 mil/mm3 (4.00-5.30); Red Cell Distribution Width 16.9 % (11.6-17.2)
--- NOTE | 2018-03-15 10:29 | CT ---
EXAM DATE: 03/15/2018 10:11 AM EDT AGE/SEX: 87 years / Female INDICATIONS: Trauma, fall two days ago. Headache and back pain. CLINICAL DATA: This is the patient's initial encounter. Patient reports that signs and symptoms have been present for 2 days and indicates a pain score of 3/10. MEDICAL/SURGICAL HISTORY: Hypertension. Hysterectomy. RADIATION DOSE: 7.65 CTDI (mGy) COMPARISON: [facility], CT CHEST W/O CONTRAST, 01/11/2018. . TECHNIQUE: Contiguous axial images were obtained using helical multirow detector technique. The vol umetric data was post-processed with multiplanar reconstruction in oblique axial, sagittal, and coron al planes. Using automated exposure control and adjustment of the mA and/or kV according to patient s ize, radiation dose was kept as low as reasonably achievable to obtain optimal diagnostic quality manasa ges. DICOM format image data is available electronically for review and comparison. FINDINGS: There is slight anterolisthesis of C4 relative to C5. There is slight widening of the anterior aspect of the C4-5 disc space associated with the spondylolisthesis with shallow elevates likelihood of lig amentous injury at this level. Alignment is otherwise satisfactory. No fracture is identified. There are degenerative arthritic changes in the posterior facet joints, most conspicuously at the C4-5 leve l with less severe changes at other levels. Small primarily ventral endplate osteophytes are seen at C5-6 and C6-7. There is no evidence of bony canal or foraminal stenosis. There is no evidence of para spinal hematoma. There is calcific pleural parenchymal scarring/mass in the lung apices bilaterally, left worse than right, this noted on previous CT chest exam. CONCLUSION: Slight spondylolisthesis at C4-5 without evidence of cervical spine fracture. Possibility of ligament ous injury should be considered. Electronically signed by: Beny Ogden MD 03/15/2018 10:28 AM EDT
[2018-03-15 10:41] LABS: INR 1.1 Ratio; Prothrombin Time 11.4 sec (9.8-11.6)
[2018-03-15 10:48] LABS: Alanine Aminotransferase 28 U/L (10-53); Albumin 3.3 g/dL (3.4-5.0); Anion Gap 8 meq/L (5-15); Aspartate Aminotransferase 26 U/L (15-37); Blood Urea Nitrogen 15 mg/dL (7-18); Calcium 8.6 mg/dL (8.5-10.1); Carbon Dioxide 24.7 meq/L (21.0-32.0); Chloride 106 meq/L (98-107); Glomerular Filtration Rate 84 mL/min (>89); Glucose,Random 110 mg/dL (74-106); Potassium 4.2 meq/L (3.5-5.1); Sodium 139 meq/L (136-145)
[2018-03-15 10:51] LABS: Alkaline Phosphatase 63 U/L (45-117); Total Protein 7.2 g/dL (6.4-8.2)
--- NOTE | 2018-03-15 11:08 | XR ---
EXAM DATE: 03/15/2018 10:56 AM EDT AGE/SEX: 87 years / Female INDICATIONS: Evaluate mobility, possible ligamentous injury. CLINICAL DATA: This is the patient's initial encounter. Patient reports that signs and symptoms have been present for 2 days and indicates a pain score of 6/10. MEDICAL/SURGICAL HISTORY: None. None. COMPARISON: No prior exams available for comparison. FINDINGS: Note is again made of slight anterolisthesis of C4 relative to C5. There is no change in the configur ation in flexion or extension. The remainder of the cervical spine is normally aligned with some dege nerative changes most conspicuous at C5-6. No abnormal prevertebral swelling is identified. CONCLUSION: Mild C4-5 spondylolisthesis which appears grossly stable in flexion and extension. Electronically signed by: Beny Ogden MD 03/15/2018 11:06 AM EDT
--- NOTE | 2018-03-15 11:40 | ED ---
HPI General Chief complaint: Head Injury Stated complaint: Fall/Confusion Time Seen by Provider: 03/15/18 09:15 Source: patient, family and RN notes reviewed Mode of arrival: ambulatory History of Present Illness HPI narrative: 87yF presenting with multiple falls. The patient's relative states that she found the patient lying on the bathroom floor several days ago; since then, she has been very confused and has fallen several more times. The patient is currently confused and says that she doesn't know why she keeps falling. She complains of headache and "pain in my tailbone". Her family member states that she's also had urinary incontinence x several days as well. Denies fever, chills, cough, vomiting, diarrhea, or dysuria. Related Data Home Medications Medication Instructions Recorded Confirmed aspirin 81 mg PO DAILY 03/15/18 03/15/18 ciprofloxacin HCl 1 RIGHT EYE DAILY 03/15/18 ferrous sulfate 324 mg PO DAILY 03/15/18 03/15/18 lorazepam 0.5 mg PO DAILY PRN 03/15/18 03/15/18 metoprolol succinate 25 mg PO DAILY 03/15/18 03/15/18 tmqkojxk-vzg-jqfb-FA-lutein 03/15/18 [Centrum Silver Women] rosuvastatin 10 mg PO DAILY 03/15/18 03/15/18 Allergies Allergy/AdvReac Type Severity Reaction Status Date / Time clarithromycin Allergy Severe SOB Verified 03/15/18 09:27 doxycycline Allergy Severe SOB Verified 03/15/18 09:27 ibuprofen Allergy Severe SOB Verified 03/15/18 09:27 minocycline Allergy Severe SOB Verified 03/15/18 09:27 penicillin G Allergy Severe SOB Verified 03/15/18 09:27 tigecycline Allergy Severe SOB Verified 03/15/18 09:27 Beef Containing Products Allergy Unknown "CAN'T Verified 03/15/18 09:27 DIGEST IT" Review of Systems ROS: all other systems reviewed are negative Constitutional Denies fever(s) Eyes Denies blurry vision Cardiovascular Denies chest pain Respiratory Denies cough Gastrointestinal Denies nausea Genitourinary Denies dysuria Musculoskeletal Comments: (+) coccyx pain Neurologic Reports confusion and Reports lack of coordination Psychiatric Reports confusion PMFSH History History Provided By: Patient Medical History Medical History Glaucoma of right eye (Acute) History of hysterectomy (Acute) Hypercholesterolemia (Acute) Hypertension (Acute) Rectal prolapse (Acute) Social History Social History Substance History: No History of Abuse Smoking Status: Former smoker How Often Do You Have a Drink Containing Alcohol: Never Recent Travel in [facility] within the Last 8 Weeks: No Recent Out of Country Travel within the Last 8 Weeks: No Immunization History Tetanus Immunization: Unsure Hx Influenza Vaccine This Season: Yes Exam Const General: healthy appearing and no acute distress HENMT Head: normocephalic and atraumatic Face and sinus: normal facial exam Other: No raccoon eyes or Villalpando's sign No epistaxis or septal hematoma No intraoral trauma Eyes Other: Left pupil 3.5 mm, right pupil 3 mm, PERRL Neck Other: No midline cervical spinal tenderness Chest Chest: normal inspection of the chest Resp Effort & Inspection: normal respiratory effort Auscultation: no rhonchi and no wheezes Cardio Rate: regular rate Rhythm: regular rhythm GI Inspection: non-distended Palpation: soft and nontender Back/Spine/Pelvis Other: No midline thoracolumbar tenderness Pelvis stable, leg lengths equal Skin General: no rashes or lesions noted Neuro Other: Speech clear and fluent, no slurred speech or aphasia Motor strength 5/5, no drift Oriented x 3 but appears confused, repetitive Psych Affect: normal affect Course Consultations Consultation #1: Case discussed with Dr. Ferris of neurology, who recommends MRI brain to r/o stroke. Her team will consult Time: 13:10 Initial Documented Vital Signs Temperature 97.5 F L 03/15/18 08:50 Pulse Rate 80 03/15/18 08:50 Respiratory Rate 16 03/15/18 08:50 Blood Pressure 95/51 L 03/15/18 08:50 Pulse Oximetry 92 L 03/15/18 08:50 Last Documented Vital Signs Temperature 97.5 F L 03/15/18 08:50 Pulse Rate 101 H 03/15/18 12:27 Respiratory Rate 18 03/15/18 12:27 Blood Pressure 143/81 H 03/15/18 12:27 Pulse Oximetry 94 L 03/15/18 12:27 Medical Decision Making [facility] Narrative Medical decision making narrative: Assessment: 87yF presenting with confusion and multiple falls Plan: EKG and monitor Labs CT head/ C spine X-ray pelvis UA Addendum: Patient's workup shows leukocytosis of 15K (UA pending), CT concerning for normal pressure hydrocephalus. I spoke with Dr. Jefferson of [facility] , who will admit. I informed the patient and her family member of these results and plan to keep her in the hospital; they understand and agree. Medical Screen Exam Complete: Yes Emergency Medical Condition: Yes Medical Records Medical records reviewed: Yes I reviewed the patient's medical records. Lab Data Lab results reviewed: Yes I reviewed the patient's lab results. Result diagrams: 03/15/18 10:10 03/15/18 10:10 Lab Results 03/15/18 03/15/18 03/15/18 Range/Units 10:10 10:10 10:10 WBC 15.0 H (4.0-11.0) th/mm3 RBC 4.41 (4.00-5.30) mil/mm3 Hgb 13.0 (11.6-15.3) gm/dL Hct 38.8 (35.0-46.0) % MCV 87.8 (80.0-100.0) fL MCH 29.5 (27.0-34.0) pg MCHC 33.6 (32.0-36.0) % RDW 16.9 (11.6-17.2) % Plt Count 217 (150-450) th/mm3 MPV 7.6 (7.0-11.0) fL Neut % (Auto) 85.3 H (16.0-70.0) % Lymph % (Auto) 5.0 L (9.0-44.0) % [place] % (Auto) 7.9 (0.0-8.0) % Eos % (Auto) 0.9 (0.0-4.0) % Baso % (Auto) 0.9 (0.0-2.0) % Neut # (Auto) 12.8 H (1.8-7.7) th/mm3 Lymph # (Auto) 0.8 L (1.0-4.8) th/mm3 [place] # (Auto) 1.2 H (0.0-0.9) th/mm3 Eos # (Auto) 0.1 (0.0-0.4) th/mm3 Baso # (Auto) 0.1 (0.0-0.2) th/mm3 WBC Differential . Differential Comment Auto diff final PT 11.4 (9.8-11.6) sec INR 1.1 Ratio Sodium 139 (136-145) meq/L Potassium 4.2 (3.5-5.1) meq/L Chloride 106 (98-107) meq/L Carbon Dioxide 24.7 (21.0-32.0) meq/L Anion Gap 8 (5-15) meq/L BUN 15 (7-18) mg/dL Creatinine 0.67 (0.50-1.00) mg/dL Estimated GFR 84 L (>89) mL/min Random Glucose 110 H (74-106) mg/dL Calcium 8.6 (8.5-10.1) mg/dL Total Bilirubin 0.7 (0.2-1.0) mg/dL AST 26 (15-37) U/L ALT 28 (10-53) U/L Alkaline Phosphatase 63 (45-117) U/L Total Protein 7.2 (6.4-8.2) g/dL Albumin 3.3 L (3.4-5.0) g/dL Blood Type Antibody Screen 03/15/18 Range/Units 10:10 WBC (4.0-11.0) th/mm3 RBC (4.00-5.30) mil/mm3 Hgb (11.6-15.3) gm/dL Hct (35.0-46.0) % MCV (80.0-100.0) fL MCH (27.0-34.0) pg MCHC (32.0-36.0) % RDW (11.6-17.2) % Plt Count (150-450) th/mm3 MPV (7.0-11.0) fL Neut % (Auto) (16.0-70.0) % Lymph % (Auto) (9.0-44.0) % [place] % (Auto) (0.0-8.0) % Eos % (Auto) (0.0-4.0) % Baso % (Auto) (0.0-2.0) % Neut # (Auto) (1.8-7.7) th/mm3 Lymph # (Auto) (1.0-4.8) th/mm3 [place] # (Auto) (0.0-0.9) th/mm3 Eos # (Auto) (0.0-0.4) th/mm3 Baso # (Auto) (0.0-0.2) th/mm3 WBC Differential Differential Comment PT (9.8-11.6) sec INR Ratio Sodium (136-145) meq/L Potassium (3.5-5.1) meq/L Chloride (98-107) meq/L Carbon Dioxide (21.0-32.0) meq/L Anion Gap (5-15) meq/L BUN (7-18) mg/dL Creatinine (0.50-1.00) mg/dL Estimated GFR (>89) mL/min Random Glucose (74-106) mg/dL Calcium (8.5-10.1) mg/dL Total Bilirubin (0.2-1.0) mg/dL AST (15-37) U/L ALT (10-53) U/L Alkaline Phosphatase (45-117) U/L Total Protein (6.4-8.2) g/dL Albumin (3.4-5.0) g/dL Blood Type O Positive Antibody Screen Negative Imaging Data Radiologist's impression: Cervical Spine CT 03/15/18 09:24 CONCLUSION: Slight spondylolisthesis at C4-5 without evidence of cervical spine fracture. Possibility of ligamentous injury should be considered. Head CT 03/15/18 09:24 CONCLUSION: Moderate symmetric ventriculomegaly and diminished white matter density. Correlate with likelihood of normal pressure hydrocephalus. No acute injury. . Pelvis X-Ray 03/15/18 09:24 CONCLUSION: 1. Diffuse osseous demineralization with no acute fracture. 2. Old right subcapital fracture secured with 3 osseous screws. 3. Atherosclerotic calcification of the regional vasculature. Cervical Spine X-Ray 03/15/18 10:33 CONCLUSION: Mild C4-5 spondylolisthesis which appears grossly stable in flexion and extension. ECG Data Attestation: I personally reviewed and interpreted this ECG as follows: Interpretation: Rate: 93 BPM Rhythm: Sinus with PACs [place]: Normal to LAD Intervals: Normal intervals, no blocks, QTc 407 ms Q waves: aVL T waves: Inverted in aVL ST segments: No elevations or depressions Impression: Non-specific EKG, no changes as compared to EKG from 10/21/2017. Discharge Plan Discharge Disposition Patient Disposition: 30 Still Patient Discharge Condition Condition: Good Discharge Details Diagnosis: Normal pressure hydrocephalus, Multiple falls, Confusion Physicians Team ED Provider: Anahi Wallis Primary Care Provider: Thu Morrison Rxs /Orders / Referrals /Forms Prescriptions: No Action lorazepam 0.5 mg Tablet 0.5 mg PO DAILY PRN (Reason: Anxiety) RF: 0 ciprofloxacin HCl 0.3 % Drops 1 RIGHT EYE DAILY RF: 0 aspirin 81 mg Tablet,Chewable 81 mg PO DAILY RF: 0 metoprolol succinate 25 mg Tablet Extended Release 24 Hr 25 mg PO DAILY RF: 0 rosuvastatin 10 mg Tablet 10 mg PO DAILY RF: 0 ferrous sulfate 324 mg (65 mg iron) Tablet,Delayed Release (Dr/Ec) 324 mg PO DAILY RF: 0 dcjabnei-htc-fjaq-FA-lutein [Centrum Silver Women] 8 mg iron-400 mcg-300 mcg Tablet RF: 0 Discharge Interventions Interventions: Vital Signs Last Done: 03/15/18 12:27 Status ED Status: With Doctor
--- NOTE | 2018-03-15 11:42 | ECG ---
Date Performed: 03/15/2018 Time Performed: 10:14:51 PTAGE: 87 years EKG: Sinus rhythm WITH FREQUENT SUPRAVENTRICULAR PREMATURE COMPLEXES POSSIBLE LEFT ATRIAL ENLARGEMENT ABNORMAL RHYTHM ECG PREVIOUS TRACING : 10/21/2017 08.19 No significant change from previous tracing noted. DOCTOR: Garrison Huerta Interpretating Date/Time 03/15/2018 11:41:30
[2018-03-15] MEDS ORDERED: LORazepam 0.5 MG Tablet PO PRN (13:41)
--- NOTE | 2018-03-15 13:50 | P.HPIM ---
History of Present Illness Primary Care Physician: Thu Morrison MD Chief Complaint: frequent falls History of Present Illness: patient is a 87 y/o female with history of hypertension and dyslipidemia who was brought to ER with frequent falls. information was obtained from the care- rib stiffener and heel dipper at the bedside. she says that she's normally walks with a walker but she' s had a few falls over the past one week. she seems to be more confused with worsening urinary incontinence.at the time of my evaluation she was resting comfortably with no acute distress with no chest pain, sob, abdominal pain, nausea. she lives with her son. Inpatient Certification: I certify that the inpatient services were ordered in accordance with Medicare regulations governing the order. This includes certification that hospital inpatient services are reasonable and necessary and in the case of services not specified as inpatient-only under 42 CFR 419.22(n), that they are appropriately provided as inpatient services in accordance to with the 2-midnight benchmark under 43 CFR 412.3(e) Estimated Total Length of Stay (Days): 2 Plans for Post Hospital Care: Not yet determined Review of Systems All other systems reviewed negative except as stated in HPI PMFSH - History History Provided By: Patient - Medical History Medical History: Medical History (Last Reviewed 03/15/18 @ 13:53 by Siri Chavez) Glaucoma of right eye History of hysterectomy Hypercholesterolemia Hypertension Rectal prolapse - Surgical History Surgical History: Surgical History (Last Updated 03/15/18 @ 13:47 by River Jefferson MD) History of hip surgery - Family History Family History: Family History (Last Updated 03/15/18 @ 13:47 by River Jefferson MD) Father Parkinson disease - Tobacco History Smoking Status: Former smoker - Alcohol History How Often Do You Have a Drink Containing Alcohol: Never - Substance Use History Substance History: No History of Abuse - Travel History Recent Travel in the [place] Within the Last 8 Weeks: No Recent Travel Out of the Country Within the Last 8 Weeks: No - Immunization History Tetanus Immunization: Unsure Hx Influenza Vaccine This Season: Yes Medications and Allergies Active Medications: Active Medications Lorazepam (Ativan) 0.5 mg PO DAILY PRN PRN Reason: Anxiety Metoprolol Succinate (Toprol Xl) 25 mg PO DAILY VIVIEN Non-Formulary Medication (Ferrous Sulfate [Ferrous Sulfate]) 324 mg PO DAILY VIVIEN Non-Formulary Medication (Rosuvastatin [Rosuvastatin]) 10 mg PO DAILY VIVIEN Allergies Allergy/AdvReac Type Severity Reaction Status Date / Time clarithromycin Allergy Severe SOB Verified 03/15/18 09:27 doxycycline Allergy Severe SOB Verified 03/15/18 09:27 ibuprofen Allergy Severe SOB Verified 03/15/18 09:27 minocycline Allergy Severe SOB Verified 03/15/18 09:27 penicillin G Allergy Severe SOB Verified 03/15/18 09:27 tigecycline Allergy Severe SOB Verified 03/15/18 09:27 Beef Containing Products Allergy Unknown "CAN'T Verified 03/15/18 09:27 DIGEST IT" Home Medications Medication Instructions Recorded Confirmed Type aspirin 81 mg PO DAILY 03/15/18 03/15/18 History ciprofloxacin HCl 1 RIGHT EYE DAILY 03/15/18 History ferrous sulfate 324 mg PO DAILY 03/15/18 03/15/18 History lorazepam 0.5 mg PO DAILY PRN 03/15/18 03/15/18 History metoprolol succinate 25 mg PO DAILY 03/15/18 03/15/18 History gvomasiz-pcs-ovix-FA-lutein 03/15/18 History [Centrum Silver Women] rosuvastatin 10 mg PO DAILY 03/15/18 03/15/18 History Exam Vital signs: Vital Signs 03/15/18 08:50 03/15/18 09:24 03/15/18 12:27 Temperature 97.5 F L Pulse Rate 80 98 H 101 H Respiratory Rate 16 18 Blood Pressure 95/51 L 143/81 H Pulse Oximetry 92 L 94 L 03/15/18 13:19 Temperature Pulse Rate 104 H Respiratory Rate 18 Blood Pressure 137/72 Pulse Oximetry 95 Intake & Output 03/14/18 03/15/18 03/15/18 18:59 06:59 18:59 Intake Total 1000 / 1000 Balance 1000 / 1000 Weight 40.823 kg Intake: IV 1000 / 1000 NS Inj 1,000 ML @ Wide Open IV. 1000 / 1000 SIG BOLUS ONE Rx#:[id number] - Constitutional no acute distress - Routine HEENT Exam Head: Present: atraumatic Eye: Present: PERRL - Routine Neck Exam Present: full ROM - Routine Respiratory Exam Present: CTA bilaterally - Routine Cardiovascular Exam Present: RRR - Routine Abdominal Exam Present: soft - Routine Extremities Exam Comments: no pedal edema. - Routine Neurological Exam Present: alert, oriented X3 Results - Labs CBC & Chem 7: 03/15/18 10:10 03/15/18 10:10 Labs: Short CBC 03/15/18 Range/Units 10:10 WBC 15.0 H (4.0-11.0) th/mm3 Hgb 13.0 (11.6-15.3) gm/dL Hct 38.8 (35.0-46.0) % Plt Count 217 (150-450) th/mm3 BMP 03/15/18 10:10 Sodium 139 Potassium 4.2 Chloride 106 Carbon Dioxide 24.7 BUN 15 Creatinine 0.67 Calcium 8.6 Liver Function 03/15/18 Range/Units 10:10 Total Bilirubin 0.7 (0.2-1.0) mg/dL AST 26 (15-37) U/L ALT 28 (10-53) U/L Alkaline Phosphatase 63 (45-117) U/L Albumin 3.3 L (3.4-5.0) g/dL - Imaging Impressions Cervical Spine CT 03/15/18 09:24 CONCLUSION: Slight spondylolisthesis at C4-5 without evidence of cervical spine fracture. Possibility of ligamentous injury should be considered. Head CT 03/15/18 09:24 CONCLUSION: Moderate symmetric ventriculomegaly and diminished white matter density. Correlate with likelihood of normal pressure hydrocephalus. No acute injury. . Pelvis X-Ray 03/15/18 09:24 CONCLUSION: 1. Diffuse osseous demineralization with no acute fracture. 2. Old right subcapital fracture secured with 3 osseous screws. 3. Atherosclerotic calcification of the regional vasculature. Cervical Spine X-Ray 03/15/18 10:33 CONCLUSION: Mild C4-5 spondylolisthesis which appears grossly stable in flexion and extension. Caprini VTE Risk Assessment Caprini VTE Risk Assessment: Moderate/High Risk (score >= 2) Caprini Risk Assessment Model: Point Value = 1 Point Value = 2 Point Value = 3 Point Value = 5 Age 41-60 Minor surgery BMI > 25 kg/m2 Swollen legs Varicose veins or History of unexplained or recurrent spontaneous Oral contraceptives or hormone replacement Sepsis (< 1 month) Serious lung disease, including pneumonia (< 1 month) Abnormal pulmonary function Acute myocardial infarction Congestive heart failure (< 1 month) History of inflammatory bowel disease Medical patient at bed rest Age 61-74 Arthroscopic surgery Major open surgery (> 45 min) Laparoscopic surgery (> 45 min) Malignancy Confined to bed (> 72 hours) Immobilizing plaster cast Central venous access Age >= 75 History of VTE Family history of VTE Factor V Leiden Prothrombin [id number] Lupus anticoagulant Anticardiolipin antibodies Elevated serum homocysteine Heparin-induced thrombocytopenia Other congenital or acquired thrombophilia Stroke (< 1 month) Elective arthroplasty Hip, pelvis, or leg fracture Acute spinal cord injury (< 1 month) Prophylaxis Regimen: Total Risk Factor Score Risk Level Prophylaxis Regimen 0-1 Low Early ambulation 2 Moderate Order ONE of the following: *Sequential Compression Device (SCD) *Heparin 5000 units SQ BID 3-4 Higher Order ONE of the following medications: *Heparin 5000 units SQ TID *Enoxaparin/Lovenox 40 mg SQ daily (WT < 150 kg, CrCl > 30 mL/min) *Enoxaparin/Lovenox 30 mg SQ daily (WT < 150 kg, CrCl > 10-29 mL/min) *Enoxaparin/Lovenox 30 mg SQ BID (WT < 150 kg, CrCl > 30 mL/min) AND/OR *Sequential Compression Device (SCD) 5 or more Highest Order ONE of the following medications: *Heparin 5000 units SQ TID (Preferred with Epidurals) *Enoxaparin/Lovenox 40 mg SQ daily (WT < 150 kg, CrCl > 30 mL/min) *Enoxaparin/Lovenox 30 mg SQ daily (WT < 150 kg, CrCl > 10-29 mL/min) *Enoxaparin/Lovenox 30 mg SQ BID (WT < 150 kg, CrCl > 30 mL/min) AND *Sequential Compression Device (SCD) Assessment and Plan - Plan A/P - possible Normal Pressure Hydrocephalus fall precautions/ consult neurology and PT -hypertension/ dyslipidemia; resumed home meds -DVT prophylaxis with SCD's -case management consulted for dc planning. Discussed Condition With: ER physician, the patient and her care-rib stiffener and heel dipper. Discharge Planning: when w/u is completed- pending PT evaluation.
--- NOTE | 2018-03-15 15:46 | MB ---
cc: Fabi Ferris MD DATE: 03/15/2018 REASON FOR CONSULTATION: Falls, possible NPH. HISTORY OF PRESENT ILLNESS: An 87-year-old lady with a history of hypertension, hyperlipidemia, brought in due to recent falls. Caregiver at bedside states that she normally walks with a walker, but has had a few falls over the last week or so without any obvious loss of consciousness. She has been more confused, not taking her dentures out for example at nighttime. One morning she found her in the bed naked, incontinent, on top of the blankets. The patient is very hard of hearing and cannot give me any meaningful history. Apparently lives with her son and granddaughter. Has a caregiver during the daytime. PAST MEDICAL HISTORY: Glaucoma, right eye, hyperlipidemia, hypertension, rectal prolapse, hysterectomy. PAST SURGICAL HISTORY: Hip surgery. FAMILY HISTORY: Her father had Parkinson's. SOCIAL HISTORY: She used to smoke, has not smoked in years. No alcohol. No IV drug abuse. PHYSICAL EXAMINATION: VITAL SIGNS: Temperature is 97.5, heart rate 104, respiratory rate 18, blood pressure 137/72, saturating at 95% on room air. GENERAL: She is an elderly woman lying in bed, just had a brief physical therapy evaluation. She is not in any distress. NECK: Supple. I do not hear any bruits. HEART: Regular. NEUROLOGIC: She is awake and alert, confused, not able to give a history. Looking towards her caregiver for answers. She does not have any dysarthria or aphasia. Face is symmetrical. Pupils are reactive. Motor richardson upper extremity strength is intact. She has trouble lifting her legs antigravity together, but can withdraw and lift independently to some degree. It is difficult to tell for any leg lag when I lift her legs up. She does not grimace in pain. Her reflexes are trace. Sensory is normal. Toes withdraw actually. She states it tickles when I do a Babinski. LABORATORY DATA: White count is 15. Neutrophil count is 85.3%. INR is 1.1, GFR 84, glucose 110, albumin 3.3. IMAGING: She had a CT of the head performed on this admission that shows moderate symmetry and moderate symmetrical ventriculomegaly and diminished white matter disease. Looking back at her old imaging had a brain MRI back in September 2017 was done without contrast that shows cortical atrophy and advanced microvascular demyelinating changes. There is ventricular dilatation in proportion to sulci atrophy. She had a cervical spine MRI at that time that showed mild to moderate degenerative disk disease. No significant stenosis and no cord impingement. Thoracic spine MRI back in September of this year showing moderate compression deformities of T7, T9, T10 and T12, moderate retropulsion at T7. Mild osteophytic ridging at T9 and T10. These efface the anterior thecal sac, but there is no cord impingement or cord edema. Fractures are probably subacute or old. There is mild kyphosis. On this admission, she had a cervical spine x-ray that showed spondylolisthesis C4-C5, mild. IMPRESSION: 1. Falls in an elderly woman with history of compression fractures of the thoracic spine per report back from September 2017 2. Possible normal pressure hydrocephalus. 3. Dementia. RECOMMENDATIONS: Recommend dementia workup. She will have an MRI of the brain, as well as I will go ahead and look at her cervical and thoracic spine as well. We will also get a urinalysis if not done so and make sure she does not have a UTI. She has some white count elevation. I am not sure etiology for that at this point. We will continue current care and make further recommendations. Continue with physical therapy. If there is evidence of NPH, we will have neurosurgery consulted for drain versus doing under IR. Ongoing PT assessment, etc. MD YUE Gutierrez/sheila , 02:46 PM , 02:56 PM
[2018-03-15 18:50] LABS: Free T4 (Free Thyroxine) 1.17 ng/dL (0.76-1.46); Vitamin B12 381 pg/mL (193-986)
[2018-03-15] MEDS: Sodium Chlor 0.9% Inj 500 ML IV.SIG SCH (18:53)
[2018-03-15 19:29] LABS: Bilirubin,Urine Negative (Negative); Clarity,Urine Clear (Clear); Color,Urine Yellow (Yellw/Straw); Glucose,Urine (UA) Negative (Negative); Hyaline Casts,Urine 1 /lpf (0-3); Leukocyte Esterase,Urine Negative (Negative); Mucus,Urine Few /lpf (Occasional); Nitrite,Urine Negative (Negative); Specific Gravity,Urine 1.023 (1.002-1.035); Squamous Epithelial Cell,Urine 1 /hpf (0-5)
[2018-03-16] MEDS: Sodium Chlor 0.9% Inj 500 ML IV.SIG SCH ×2 (05:11→13:21)
[2018-03-16 05:28] LABS: Baso # (Auto) 0.1 th/mm3 (0.0-0.2); Baso % (Auto) 0.8 % (0.0-2.0); Eos # (Auto) 0.4 th/mm3 (0.0-0.4); Eos % (Auto) 4.2 % (0.0-4.0); Hematocrit 36.6 % (35.0-46.0); Hemoglobin 12.2 gm/dL (11.6-15.3); Lymph # (Auto) 0.9 th/mm3 (1.0-4.8); Lymph % (Auto) 8.9 % (9.0-44.0); Mean Corpuscular HGB Conc 33.4 % (32.0-36.0); Mean Corpuscular Hemoglobin 29.4 pg (27.0-34.0); Mean Platelet Volume 7.6 fL (7.0-11.0); Mono # (Auto) 0.8 th/mm3 (0.0-0.9); Mono % (Auto) 7.8 % (0.0-8.0); Neut % (Auto) 78.3 % (16.0-70.0); Platelet Count 200 th/mm3 (150-450); Red Blood Count 4.16 mil/mm3 (4.00-5.30); White Blood Count 10.3 th/mm3 (4.0-11.0)
--- NOTE | 2018-03-16 07:38 | P.PN ---
Subjective Interval history: Upon patient with frequent falls, confusion, urinary incontinence. Patient seen and examined. Imaging suggestive of NPH. Patient denies any acute medical complaints. Denies any headache or vision changes. She denies any weakness, numbness or tingling. She denies any chest pain or shortness of breath. She denies any nausea, vomiting or abdominal pain. Physical Exam Vital signs: Vital Signs 03/15/18 08:50 03/15/18 09:24 03/15/18 12:27 Temperature 97.5 F L Pulse Rate 80 98 H 101 H Respiratory Rate 18 Blood Pressure 95/51 L 143/81 H Pulse Oximetry 92 L 94 L 03/15/18 13:19 03/15/18 16:00 03/15/18 17:00 Temperature 98 F Pulse Rate 104 H 89 95 H Respiratory Rate 18 Blood Pressure 137/72 135/63 121/66 Pulse Oximetry 95 96 96 03/15/18 20:00 03/16/18 00:00 03/16/18 04:00 Temperature 98.3 F 98.3 F 97.4 F L Pulse Rate 101 H 104 H 93 H Respiratory Rate 18 Blood Pressure 153/70 H 139/64 127/86 Pulse Oximetry 95 94 L 94 L Intake & Output 03/15/18 03/16/18 03/16/18 18:59 06:59 18:59 Intake Total 1000 / 1000 500 / 500 Output Total 100 / 100 Balance 900 / 900 500 / 500 Weight 40.823 kg 35.6 kg Intake: IV 1000 / 1000 500 / 500 NS Inj 1,000 ML @ Wide Open IV. 1000 / 1000 SIG BOLUS ONE Rx#:[id number] NS Inj 500 ML @ 50 mls/hr IV. 500 / 500 SIG .Q10H VIVIEN Rx#:[id number] Output: Urine 100 / 100 Other: # Incontinent Voids 1 Narrative: GENERAL: Thin elderly female, INAD. Awake and alert. Appears comfortable. Family at bedside. SKIN: Warm and dry. No generalized rash. HEAD: Atraumatic. Normocephalic. No facial asymmetry. EYES: Pupils equal and round. No scleral icterus. No injection or drainage. ENT: No nasal bleeding or discharge. Mucous membranes pink and moist. NECK: Trachea midline. CARDIOVASCULAR: Regular rate and rhythm. +Systolic murmur. RESPIRATORY: No accessory muscle use. Clear to auscultation. Breath sounds equal bilaterally. GASTROINTESTINAL: Abdomen soft, non-tender, nondistended. +BS. MUSCULOSKELETAL: Extremities without clubbing, cyanosis, or edema. No obvious deformities. NEUROLOGICAL: Awake and alert. No obvious cranial nerve deficits. Motor grossly within normal limits. No focal neurologic findings appreciated. Normal speech. PSYCHIATRIC: Appropriate mood and affect; insight and judgment normal. Results - Labs CBC & Chem 7: 03/16/18 05:11 03/15/18 10:10 Laboratory Results - last 24 hr 03/15/18 03/15/18 03/15/18 10:10 10:10 10:10 WBC 15.0 H RBC 4.41 Hgb 13.0 Hct 38.8 MCV 87.8 MCH 29.5 MCHC 33.6 RDW 16.9 Plt Count 217 MPV 7.6 Neut % (Auto) 85.3 H Lymph % (Auto) 5.0 L [place] % (Auto) 7.9 Eos % (Auto) 0.9 Baso % (Auto) 0.9 Neut # (Auto) 12.8 H Lymph # (Auto) 0.8 L [place] # (Auto) 1.2 H Eos # (Auto) 0.1 Baso # (Auto) 0.1 WBC Differential . Differential Comment Auto diff final PT 11.4 INR 1.1 Sodium 139 Potassium 4.2 Chloride 106 Carbon Dioxide 24.7 Anion Gap 8 BUN 15 Creatinine 0.67 Estimated GFR 84 L Random Glucose 110 H Calcium 8.6 Total Bilirubin 0.7 AST 26 ALT 28 Alkaline Phosphatase 63 Ammonia Total Protein 7.2 Albumin 3.3 L Vitamin B12 Folate TSH Free T4 Urine Color Urine Clarity Urine pH Ur Specific [place] Urine Protein Urine Glucose (UA) Urine Ketones Urine Occult Blood Urine Nitrate Urine Bilirubin Urine Urobilinogen Ur Leukocyte Esterase Urine RBC Urine WBC Ur Squamous Epith Cells Hyaline Casts Urine Mucus Micro UA Comment Urine Culture Comments Blood Type Antibody Screen 03/15/18 03/15/18 03/15/18 10:10 12:34 17:13 WBC RBC Hgb Hct MCV MCH MCHC RDW Plt Count MPV Neut % (Auto) Lymph % (Auto) [place] % (Auto) Eos % (Auto) Baso % (Auto) Neut # (Auto) Lymph # (Auto) [place] # (Auto) Eos # (Auto) Baso # (Auto) WBC Differential Differential Comment PT INR Sodium Potassium Chloride Carbon Dioxide Anion Gap BUN Creatinine Estimated GFR Random Glucose Calcium Total Bilirubin AST ALT Alkaline Phosphatase Ammonia 28 Total Protein Albumin Vitamin B12 Folate TSH Free T4 Urine Color Yellow Urine Clarity Clear Urine pH 7.0 Ur Specific [place] 1.023 Urine Protein 30 H Urine Glucose (UA) Negative Urine Ketones Negative Urine Occult Blood Negative Urine Nitrate Negative Urine Bilirubin Negative Urine Urobilinogen 2.0 H Ur Leukocyte Esterase Negative Urine RBC 1 Urine WBC 1 Ur Squamous Epith Cells 1 Hyaline Casts 1 Urine Mucus Few H Micro UA Comment Culture not ind Urine Culture Comments Culture not ind Blood Type O Positive Antibody Screen Negative 03/15/18 03/16/18 17:13 05:11 WBC 10.3 RBC 4.16 Hgb 12.2 Hct 36.6 MCV 88.0 MCH 29.4 MCHC 33.4 RDW 17.0 Plt Count 200 MPV 7.6 Neut % (Auto) 78.3 H Lymph % (Auto) 8.9 L [place] % (Auto) 7.8 Eos % (Auto) 4.2 H Baso % (Auto) 0.8 Neut # (Auto) 8.0 H Lymph # (Auto) 0.9 L [place] # (Auto) 0.8 Eos # (Auto) 0.4 Baso # (Auto) 0.1 WBC Differential . Differential Comment Auto diff final PT INR Sodium Potassium Chloride Carbon Dioxide Anion Gap BUN Creatinine Estimated GFR Random Glucose Calcium Total Bilirubin AST ALT Alkaline Phosphatase Ammonia Total Protein Albumin Vitamin B12 381 Folate Greater than 20.0 H TSH 1.500 Free T4 1.17 Urine Color Urine Clarity Urine pH Ur Specific [place] Urine Protein Urine Glucose (UA) Urine Ketones Urine Occult Blood Urine Nitrate Urine Bilirubin Urine Urobilinogen Ur Leukocyte Esterase Urine RBC Urine WBC Ur Squamous Epith Cells Hyaline Casts Urine Mucus Micro UA Comment Urine Culture Comments Blood Type Antibody Screen - Imaging Impressions Cervical Spine CT 03/15/18 09:24 CONCLUSION: Slight spondylolisthesis at C4-5 without evidence of cervical spine fracture. Possibility of ligamentous injury should be considered. Head CT 03/15/18 09:24 CONCLUSION: Moderate symmetric ventriculomegaly and diminished white matter density. Correlate with likelihood of normal pressure hydrocephalus. No acute injury. . Pelvis X-Ray 03/15/18 09:24 CONCLUSION: 1. Diffuse osseous demineralization with no acute fracture. 2. Old right subcapital fracture secured with 3 osseous screws. 3. Atherosclerotic calcification of the regional vasculature. Cervical Spine X-Ray 03/15/18 10:33 CONCLUSION: Mild C4-5 spondylolisthesis which appears grossly stable in flexion and extension. Assessment and Plan - Plan 87 y/o female with history of hypertension and dyslipidemia who was brought to ER with frequent falls, confusion and urinary incontinence. Possible Normal Pressure Hydrocephalus CT head reviewed, shows moderate symmetric ventriculomegaly and diminished white matter density, likelihood of NPH -Neurology following, appreciate assistance. MRI brain, cervical and thoracic ordered. Pending results, may consult NS for possible shunt vs IR. -fall precautions -continue with PT Worsening confusion, possibly secondary to NPH ?dementia TSH WNL, ammonia level normal B12 381, MMA pending RPR nonreactive -monitor -plan as above Recurrent falls at home Imaging does not show any acute fractures -as above Urinary incontinence, likely secondary to NPH UA unremarkable -plan as above. Leukocytosis, suspect reactive Repeat white count WNL she is afebrile -monitor white count as indicated Hypertension/ dyslipidemia, chronic -continue on Toprol XL and Lipitor Hx of atrial fibrillation -monitor on telemetry DVT prophylaxis with SCD's Discussed Condition With: patient, family, DR. Cruz, recycling operations manager Planning: Not ready for discharge. Discharge pending neurology workup and clearance.
[2018-03-16] MEDS ORDERED: FERROUS SULFATE 324 MG PO SCH (09:00)
[2018-03-16] MEDS ORDERED: Gadobutrol PF 2 MMOL/2 ML Vial (for RAD) IV.SIG ONE (18:05)
--- NOTE | 2018-03-16 18:09 | MR ---
EXAM DATE: 03/16/2018 6:07 PM EDT AGE/SEX: 87 years / Female INDICATIONS: Altered mental status. CLINICAL DATA: This is the patient's initial encounter. Patient reports that signs and symptoms have been present for 1 day and indicates a pain score of 3/10. MEDICAL/SURGICAL HISTORY: None. . Hip sx. COMPARISON: [facility] [place], CT HEAD W/O CONTRAST, 03/15/2018. . TECHNIQUE: Multiplanar, multisequence examination of the brain was performed without and with 3.5 ml Gadavist (gadobutrol) contrast as a single exam dose. FINDINGS: CONCLUSION: 1. Electronically signed by: Beny Morales MD 03/16/2018 6:08 PM EDT
--- NOTE | 2018-03-16 18:17 | MR ---
EXAM DATE: 03/16/2018 6:08 PM EDT AGE/SEX: 87 years / Female INDICATIONS: . Neck pain from fall, abnormal gait. CLINICAL DATA: This is the patient's initial encounter. Patient reports that signs and symptoms have been present for 1 day and indicates a pain score of 3/10. MEDICAL/SURGICAL HISTORY: None. . Hip sx. COMPARISON: [facility] [place], MR THORACIC SPINE W/O CONTRAST, 03/16/2018. . TECHNIQUE: Multiplanar, multisequence MRI examination of the cervical spine was performed without co ntrast. FINDINGS: Sagittal T1, T2 and inversion recovery images show mild multilevel degenerative disc disease with carmen e loss of disc height predominantly at the C5-6 level. Minimal grade 1 anterolisthesis of C4 on 5. Ve rtebral body heights are maintained throughout without fracture. Spinal canal is widely patent throug hout. Cord signal is normal throughout. Posterior fossa is radiographically intact. There does appear to be some cortical and central atrophy C2-C3: The thecal sac has a normal configuration. There is no evidence of disc herniation or spinal canal stenosis. The neural foramina are patent bilaterally. C3-C4: The thecal sac has a normal configuration. There is no evidence of disc herniation or spinal canal stenosis. The neural foramina are patent bilaterally. C4-C5: Minimal, right paracentral disc protrusion. Spinal canal and neural foramina are patent C5-C6: Very mild right posterior uncovertebral ridging. Spinal canal and neural foramina are patent C6-C7: The thecal sac has a normal configuration. There is no evidence of disc herniation or spinal canal stenosis. The neural foramina are patent bilaterally. C7-T1: No epidural impressions seen. CONCLUSION: 1. Mild degenerative disc disease with some loss of height predominantly at C5-6. Minimal grade 1 an terolisthesis of C4 on 5. 2. Spinal canal and neural foramina are adequate throughout without cord or nerve root compromise to explain current clinical symptoms. Electronically signed by: Enrique Valles MD 03/16/2018 6:15 PM EDT
--- NOTE | 2018-03-16 20:49 | MR ---
EXAM DATE: 03/16/2018 6:12 PM EDT AGE/SEX: 87 years / Female INDICATIONS: . Back pain from fall, abnormal gait. CLINICAL DATA: This is the patient's initial encounter. Patient reports that signs and symptoms have been present for 1 day and indicates a pain score of 3/10. MEDICAL/SURGICAL HISTORY: None. . Hip sx. COMPARISON: [facility], MR CERVICAL SPINE W/O CONTRAST, 03/16/2018. . TECHNIQUE: Multiplanar, multisequence MRI of the thoracic spine was performed. FINDINGS: Sagittal T1, T2 and inversion recovery images demonstrate multiple compression fractures of the dorsa l spine including T7, T9, T10, T12 and L1. All the dorsal fractures appear chronic but there is some edema in portions of the L1 vertebral body possibly representing a subacute injury superimposed on a chronic fracture deformity. There is a small right-sided pleural effusion. Biapical pleural-parenchym al scarring. T1-T2: The thecal sac has a normal diameter. No evidence of disc bulge or protrusion. T2-T3: The thecal sac has a normal diameter. No evidence of disc bulge or protrusion. T3-T4: The thecal sac has a normal diameter. No evidence of disc bulge or protrusion. T4-T5: The thecal sac has a normal diameter. No evidence of disc bulge or protrusion. T5-T6: The thecal sac has a normal diameter. No evidence of disc bulge or protrusion. T6-T7: Small central disc protrusion. Spinal canal is patent T7-T8: The thecal sac has a normal diameter. No evidence of disc bulge or protrusion. T8-T9: The thecal sac has a normal diameter. No evidence of disc bulge or protrusion. T9-T10: Mild right-sided posterior element hypertrophy. Spinal canal is patent T10-T11: Mild left-sided posterior element hypertrophy. Spinal canal is patent T11-T12: Bilateral facet hypertrophy. Spinal canal is patent T12-L1: The thecal sac has a normal diameter. No evidence of disc bulge or protrusion. CONCLUSION: 1. Multiple compression fractures of the dorsal spine including T7, T9, T10 and T12. These all appea r to be chronic. 2. There is a fracture through the inferior endplate of L1. There is some edema identified in portio ns of the L1 vertebral body possibly representing a subacute injury superimposed on a chronic fractur e deformity. 3. Despite the multiple fractures and some degenerative disc disease/posterior element hypertrophy, the spinal canal appears to be adequate throughout without cord compromise to explain current clinica l symptoms. Electronically signed by: Enrique Valles MD 03/16/2018 8:48 PM EDT
[2018-03-17] MEDS: Sodium Chlor 0.9% Inj 500 ML IV.SIG SCH (00:01)
--- NOTE | 2018-03-17 10:22 | P.PN ---
Subjective Interval history: Follow-up of patient with possible NPH. Patient seen and examined. Family is at the bedside. Patient is very sleepy today. Per the RN, patient was very agitated last night, pulling off her telemetry, refusing care. Suspect sundowning. She denies any complaints at present. Physical Exam Vital signs: Vital Signs 03/16/18 10:43 03/16/18 12:00 03/16/18 16:00 Temperature 98.2 F 98.0 F Pulse Rate 96 H 89 84 Respiratory Rate 16 16 Blood Pressure 136/64 140/66 Pulse Oximetry 94 L 96 03/16/18 18:44 03/16/18 20:00 03/17/18 00:00 Temperature 98.0 F 98.1 F Pulse Rate 95 H 86 94 H Respiratory Rate 16 18 Blood Pressure 118/65 131/67 Pulse Oximetry 93 L 93 L 03/17/18 08:00 Temperature 98.5 F Pulse Rate 102 H Respiratory Rate 18 Blood Pressure 105/59 L Pulse Oximetry 99 Intake & Output 03/16/18 03/17/18 03/17/18 18:59 06:59 18:59 Intake Total 760 / 760 740 / 740 0 / 0 Balance 760 / 760 740 / 740 0 / 0 Intake: IV 500 / 500 500 / 500 0 / 0 NS Inj 500 ML @ 50 mls/hr IV. 500 / 500 500 / 500 0 / 0 SIG .Q10H VIVIEN Rx#:[id number] Oral 260 / 260 240 / 240 Other: # Voids 6 # Incontinent Voids 3 # Bowel Movements 0 Narrative: GENERAL: Thin elderly female, INAD. Awake, lethargic. Appears comfortable. Family at bedside. SKIN: Warm and dry. No generalized rash. HEAD: Atraumatic. Normocephalic. No facial asymmetry. EYES: Pupils equal and round. No scleral icterus. No injection or drainage. ENT: No nasal bleeding or discharge. Mucous membranes pink and moist. NECK: Trachea midline. CARDIOVASCULAR: Regular rate and rhythm. +Systolic murmur. RESPIRATORY: No accessory muscle use. Clear to auscultation. Breath sounds equal bilaterally. GASTROINTESTINAL: Abdomen soft, non-tender, nondistended. +BS. MUSCULOSKELETAL: Extremities without clubbing, cyanosis, or edema. No obvious deformities. NEUROLOGICAL: Awake but lethargic. No obvious cranial nerve deficits. Motor grossly within normal limits. No focal neurologic findings appreciated. Normal speech. PSYCHIATRIC: Appropriate mood and affect; insight and judgment poor. Results - Labs CBC & Chem 7: 03/16/18 05:11 03/15/18 10:10 - Imaging Impressions Cervical Spine MRI 03/16/18 00:00 CONCLUSION: 1. Mild degenerative disc disease with some loss of height predominantly at C5- 6. Minimal grade 1 anterolisthesis of C4 on 5. 2. Spinal canal and neural foramina are adequate throughout without cord or nerve root compromise to explain current clinical symptoms. Head MRI 03/16/18 00:00 CONCLUSION: 1. Thoracic Spine MRI 03/16/18 00:00 CONCLUSION: 1. Multiple compression fractures of the dorsal spine including T7, T9, T10 and T12. These all appear to be chronic. 2. There is a fracture through the inferior endplate of L1. There is some edema identified in portions of the L1 vertebral body possibly representing a subacute injury superimposed on a chronic fracture deformity. 3. Despite the multiple fractures and some degenerative disc disease/posterior element hypertrophy, the spinal canal appears to be adequate throughout without cord compromise to explain current clinical symptoms. - Procedures None Assessment and Plan - Plan 87 y/o female with history of hypertension and dyslipidemia who was brought to ER with frequent falls, confusion and urinary incontinence. Possible Normal Pressure Hydrocephalus CT head reviewed, shows moderate symmetric ventriculomegaly and diminished white matter density, likelihood of NPH MRI brain shows moderate ventriculomegaly MRI thoracic spine shows multiple chronic appearing compression fractures T7, T9 , T10 and T12 and likely subacute fracture L1, no spinal cord compromise -Neurology following, appreciate assistance. -Consult Neurosurgery, appreciate recommendations -fall precautions -continue with PT/OT/ST Worsening confusion, suspect multifactorial with likely NPH and and possible dementia ?dementia TSH WNL, ammonia level normal B12 381, MMA pending RPR nonreactive -Patient with increased confusion and agitation last night, refusing care, suspect owning. Lethargic today. Received 0.5mg Ativan last night, discontinue -ST consulted for cognitive evaluation. Patient with moderate to severe cognitive impairment -monitor -plan as above Recurrent falls at home Imaging does not show any acute fractures -plan as above Urinary incontinence, likely secondary to NPH UA unremarkable -plan as above Leukocytosis, suspect reactive Repeat white count WNL she is afebrile -monitor white count as indicated Subacute L1 fracture Back pain Vitamin D level 14 in September -Give 50,000u ergocalciferol once followed by Vitamin D supplementation daily -Tylenol prn Hypertension/ dyslipidemia, chronic -continue on Toprol XL and Lipitor Hx of atrial fibrillation no events of afib on tele -continue to monitor DVT prophylaxis with SCD's Discussed Condition With: patient, nursing staff, Dr. Cruz Discharge Planning: Not ready for discharge. Discharge pending neurology and neurosurgery clearance.
--- NOTE | 2018-03-17 16:39 | P.PN ---
Subjective Interval history: confused Physical Exam Vital signs: Vital Signs 03/16/18 18:44 03/16/18 20:00 03/17/18 00:00 Temperature 98.0 F 98.1 F Pulse Rate 95 H 86 94 H Respiratory Rate 16 18 Blood Pressure 118/65 131/67 Pulse Oximetry 93 L 93 L 03/17/18 08:00 03/17/18 12:00 Temperature 98.5 F 98.0 F Pulse Rate 102 H 89 Respiratory Rate 18 16 Blood Pressure 105/59 L 113/79 Pulse Oximetry 99 94 L Intake & Output 03/16/18 03/17/18 03/17/18 18:59 06:59 18:59 Intake Total 760 / 760 740 / 740 0 / 0 Balance 760 / 760 740 / 740 0 / 0 Intake: IV 500 / 500 500 / 500 0 / 0 NS Inj 500 ML @ 50 mls/hr IV. 500 / 500 500 / 500 0 / 0 SIG .Q10H VIVIEN Rx#:[id number] Oral 260 / 260 240 / 240 Other: # Voids 6 # Incontinent Voids 3 # Bowel Movements 0 Narrative: awake alert to self and age knows art [place] not month day date or year fluent perrla motor intact no hoffmans dtrs1+ toes w/d. gait per PT Results - Labs CBC & Chem 7: 03/16/18 05:11 03/15/18 10:10 - Imaging Impressions Cervical Spine MRI 03/16/18 00:00 CONCLUSION: 1. Mild degenerative disc disease with some loss of height predominantly at C5- 6. Minimal grade 1 anterolisthesis of C4 on 5. 2. Spinal canal and neural foramina are adequate throughout without cord or nerve root compromise to explain current clinical symptoms. Head MRI 03/16/18 00:00 CONCLUSION: 1. Thoracic Spine MRI 03/16/18 00:00 CONCLUSION: 1. Multiple compression fractures of the dorsal spine including T7, T9, T10 and T12. These all appear to be chronic. 2. There is a fracture through the inferior endplate of L1. There is some edema identified in portions of the L1 vertebral body possibly representing a subacute injury superimposed on a chronic fracture deformity. 3. Despite the multiple fractures and some degenerative disc disease/posterior element hypertrophy, the spinal canal appears to be adequate throughout without cord compromise to explain current clinical symptoms. - Procedures None Assessment and Plan - Plan Possible NPH mri large ventricles/pvwmd advanced -nsx to see -consider Lumbar drain to see if dementia and balance improves -cont PT will sign out to mobile home set up person neurology
[2018-03-17] MEDS: Acetaminophen 325 MG Tablet PO PRN (18:42)
--- NOTE | 2018-03-18 07:30 | P.PN ---
Subjective Interval history: Follow-up of patient with possible NPH. Patient seen and examined. No family at the bedside this am. Patient states she feels well. She does report she is urinating alot. Denies any abdominal pain or dysuria. She denies any fever or chills. She denies any chest pain or SOB. She states she slept better last night. Physical Exam Vital signs: Vital Signs 03/17/18 08:00 03/17/18 12:00 03/17/18 16:00 Temperature 98.5 F 98.0 F 98.0 F Pulse Rate 102 H 89 92 H Respiratory Rate 18 16 16 Blood Pressure 105/59 L 113/79 156/67 H Pulse Oximetry 99 94 L 94 L 03/17/18 18:00 03/17/18 20:00 03/18/18 00:00 Temperature 98.8 F 96.4 F L Pulse Rate 86 98 H 73 Respiratory Rate 18 18 Blood Pressure 107/53 L 110/73 Pulse Oximetry 93 L 95 03/18/18 04:00 Temperature 97.6 F Pulse Rate 67 Respiratory Rate 18 Blood Pressure 115/66 Pulse Oximetry 96 Intake & Output 03/17/18 03/18/18 03/18/18 18:59 06:59 18:59 Intake Total 0 / 0 60 / 60 Output Total 500 / 500 200 / 200 Balance -500 / -500 -140 / -140 Intake: IV 0 / 0 NS Inj 500 ML @ 50 mls/hr IV. 0 / 0 SIG .Q10H [facility] Rx#:[id number] Oral 60 / 60 Output: Urine 500 / 500 200 / 200 Other: # Incontinent Voids 2 Narrative: GENERAL: Thin elderly female, INAD. Awake and alert. SKIN: Warm and dry. No generalized rash. HEAD: Atraumatic. Normocephalic. No facial asymmetry. EYES: Pupils equal and round. No scleral icterus. No injection or drainage. ENT: No nasal bleeding or discharge. Mucous membranes pink and moist. NECK: Trachea midline. CARDIOVASCULAR: Regular rate and rhythm. +Systolic murmur. RESPIRATORY: No accessory muscle use. Clear to auscultation. Breath sounds equal bilaterally. GASTROINTESTINAL: Abdomen soft, non-tender, nondistended. +BS. MUSCULOSKELETAL: Extremities without clubbing, cyanosis, or edema. No obvious deformities. NEUROLOGICAL: Awake and alert. Partially oriented. No obvious cranial nerve deficits. Motor grossly within normal limits. No focal neurologic findings appreciated. Normal speech. PSYCHIATRIC: Appropriate mood and affect; insight and judgment poor. Results - Labs CBC & Chem 7: 03/16/18 05:11 03/15/18 10:10 - Procedures None Assessment and Plan - Plan 87 y/o female with history of hypertension and dyslipidemia who was brought to ER with frequent falls, confusion and urinary incontinence. Possible Normal Pressure Hydrocephalus CT head reviewed, shows moderate symmetric ventriculomegaly and diminished white matter density, likelihood of NPH MRI brain shows moderate ventriculomegaly MRI thoracic spine shows multiple chronic appearing compression fractures T7, T9 , T10 and T12 and likely subacute fracture L1, no spinal cord compromise -Neurology following, appreciate assistance. -Neurosurgery following, appreciate assistance. Recommends high volume LP of 30cc with eval by PT before and after,. Will consult IR. -fall precautions -continue with PT/OT/ST Worsening confusion, suspect multifactorial with likely NPH and and possible dementia ?dementia TSH WNL, ammonia level normal B12 381, MMA pending RPR nonreactive -03/17 Patient with increased confusion and agitation last night, refusing care, suspect sundowning. Lethargic today. Received 0.5mg Ativan last night, discontinue -ST consulted for cognitive evaluation. Patient with moderate to severe cognitive impairment. Will reassess after high volume LP done. -monitor -plan as above Recurrent falls at home Imaging does not show any acute fractures -plan as above Urinary incontinence, likely secondary to NPH UA unremarkable -plan as above Leukocytosis, suspect reactive Repeat white count WNL she is afebrile -monitor white count as indicated Subacute L1 fracture Back pain Vitamin D level 14 in September -Given 50,000u ergocalciferol once followed by Vitamin D supplementation daily -Tylenol prn Hypertension/ dyslipidemia, chronic -continue on Toprol XL and Lipitor Hx of atrial fibrillation no events of afib on tele -continue to monitor DVT prophylaxis with SCD's Discussed Condition With: patient, nursing staff, Dr. Cruz Discharge Planning: Not ready for discharge. Plan for high volume LP then will reassess gait and cognitive function.
--- NOTE | 2018-03-18 08:08 | P.CONNS ---
History of Present Illness Service: Neurosurgery Requesting Physician: Leilani Thomas Reason for Consult: NPH Primary Care Provider: Thu Morrison MD Family Provider: Arnaldo Hassan MD Chief Complaint: frequent falls History of Present Illness: 87yoF with mild dementia who presents with frequent falls and urinary incontinence, confusion. Imaging shows large ventricles. Exam limited this morning due to patient drowsiness but she was able to relate person, place and year even in this state of drowsiness. PMFSH - History History Provided By: Patient - Medical History Medical History: Medical History (Last Reviewed 03/17/18 @ 10:54 by Toshia Correia) Glaucoma of right eye History of hysterectomy Hypercholesterolemia Hypertension Rectal prolapse - Surgical History Surgical History: Surgical History (Last Reviewed 03/17/18 @ 10:54 by Toshia Correia) History of hip surgery - Family History Family History: Family History (Last Reviewed 03/15/18 @ 13:53 by Siri Chavez) Father Parkinson disease - Tobacco History Smoking Status: Former smoker - Alcohol History How Often Do You Have a Drink Containing Alcohol: Never - Substance Use History Substance History: No History of Abuse - Travel History Recent Travel in the [place] Within the Last 8 Weeks: No Recent Travel Out of the Country Within the Last 8 Weeks: No - Immunization History Tetanus Immunization: Unsure Hx Influenza Vaccine This Season: Yes Medications and Allergies Active Medications: Active Medications Acetaminophen (Tylenol) 650 mg PO Q4H PRN PRN Reason: PAIN 1-10 AND/OR FEVER >101F Last Admin: 03/17/18 18:42 Dose: 650 mg Atorvastatin Calcium (Lipitor) 20 mg PO HS [facility] Last Admin: 03/17/18 22:57 Dose: 20 mg Metoprolol Succinate (Toprol Xl) 25 mg PO HS [facility] Last Admin: 03/17/18 22:59 Dose: Not Given Temazepam (Restoril) 7.5 mg PO HS PRN PRN Reason: INSOMNIA Last Admin: 03/17/18 22:57 Dose: 7.5 mg Vitamin D (Vitamin D3) 2,000 unit PO DAILY [facility] Allergies Allergy/AdvReac Type Severity Reaction Status Date / Time clarithromycin Allergy Severe SOB Verified 03/15/18 09:27 doxycycline Allergy Severe SOB Verified 03/15/18 09:27 ibuprofen Allergy Severe SOB Verified 03/15/18 09:27 minocycline Allergy Severe SOB Verified 03/15/18 09:27 penicillin G Allergy Severe SOB Verified 03/15/18 09:27 tigecycline Allergy Severe SOB Verified 03/15/18 09:27 Beef Containing Products Allergy Unknown "CAN'T Verified 03/15/18 09:27 DIGEST IT" Home Medications Medication Instructions Recorded Confirmed Type aspirin 81 mg PO DAILY 03/15/18 03/15/18 History ciprofloxacin HCl 1 RIGHT EYE DAILY 03/15/18 History ferrous sulfate 324 mg PO DAILY 03/15/18 03/15/18 History lorazepam 0.5 mg PO DAILY PRN 03/15/18 03/15/18 History metoprolol succinate 25 mg PO DAILY 03/15/18 03/15/18 History gyreyxrp-pyj-lysl-FA-lutein 03/15/18 History [Centrum Silver Women] rosuvastatin 10 mg PO DAILY 03/15/18 03/15/18 History Exam Vital signs: Vital Signs 03/17/18 12:00 03/17/18 16:00 03/17/18 18:00 Temperature 98.0 F 98.0 F Pulse Rate 89 92 H 86 Respiratory Rate 16 16 Blood Pressure 113/79 156/67 H Pulse Oximetry 94 L 94 L 03/17/18 20:00 03/18/18 00:00 03/18/18 04:00 Temperature 98.8 F 96.4 F L 97.6 F Pulse Rate 98 H 73 67 Respiratory Rate 18 18 18 Blood Pressure 107/53 L 110/73 115/66 Pulse Oximetry 93 L 95 96 Intake & Output 03/17/18 03/18/18 03/18/18 18:59 06:59 18:59 Intake Total 0 / 0 60 / 60 Output Total 500 / 500 200 / 200 Balance -500 / -500 -140 / -140 Intake: IV 0 / 0 NS Inj 500 ML @ 50 mls/hr IV. 0 / 0 SIG .Q10H [facility] Rx#:[id number] Oral 60 / 60 Output: Urine 500 / 500 200 / 200 Other: # Incontinent Voids 2 Narrative: A&O x 3 CN II-XII intact Motor 5/5 UE/LE unable to assess gait this morning Results - Laboratory Findings CBC and BMP: 03/16/18 05:11 03/15/18 10:10 Abnormal lab findings: Abnormal Labs 03/15/18 03/15/18 03/15/18 10:10 10:10 12:34 WBC 15.0 H Neut % (Auto) 85.3 H Lymph % (Auto) 5.0 L Eos % (Auto) Neut # (Auto) 12.8 H Lymph # (Auto) 0.8 L Mccone # (Auto) 1.2 H Estimated GFR 84 L Random Glucose 110 H Albumin 3.3 L Folate Urine Protein 30 H Urine Urobilinogen 2.0 H Urine Mucus Few H 03/15/18 03/16/18 17:13 05:11 WBC Neut % (Auto) 78.3 H Lymph % (Auto) 8.9 L Eos % (Auto) 4.2 H Neut # (Auto) 8.0 H Lymph # (Auto) 0.9 L Mccone # (Auto) Estimated GFR Random Glucose Albumin Folate Greater than 20.0 H Urine Protein Urine Urobilinogen Urine Mucus Assessment and Plan - Plan 87yoF with large ventricles, suspected NPH. If clinical suspicion is high, would recommend high volume LP of 30cc with evaluation by PT beforehand and afterward to assess for difference in gait. Also recommend assessment of clinical mental status after LP.
[2018-03-18] MEDS: Acetaminophen 325 MG Tablet PO PRN (09:17)
--- NOTE | 2018-03-18 18:15 | P.PNNEU ---
Subjective Subjective Comments: No new c/o Neurosurgery note appreciated--recommended high volume LP (30cc) and assess gait and mental status after Active Medications: Active Medications Acetaminophen (Tylenol) 650 mg PO Q4H PRN PRN Reason: PAIN 1-10 AND/OR FEVER >101F Last Admin: 03/18/18 09:17 Dose: 650 mg Atorvastatin Calcium (Lipitor) 20 mg PO HS [facility] Last Admin: 03/17/18 22:57 Dose: 20 mg Metoprolol Succinate (Toprol Xl) 25 mg PO HS [facility] Last Admin: 03/17/18 22:59 Dose: Not Given Temazepam (Restoril) 7.5 mg PO HS PRN PRN Reason: INSOMNIA Last Admin: 03/17/18 22:57 Dose: 7.5 mg Vitamin D (Vitamin D3) 2,000 unit PO DAILY [facility] Last Admin: 03/18/18 09:16 Dose: 2,000 unit Allergies/Adverse Reactions: Allergies Allergy/AdvReac Type Severity Reaction Status Date / Time clarithromycin Allergy Severe SOB Verified 03/15/18 09:27 doxycycline Allergy Severe SOB Verified 03/15/18 09:27 ibuprofen Allergy Severe SOB Verified 03/15/18 09:27 minocycline Allergy Severe SOB Verified 03/15/18 09:27 penicillin G Allergy Severe SOB Verified 03/15/18 09:27 tigecycline Allergy Severe SOB Verified 03/15/18 09:27 Beef Containing Products Allergy Unknown "CAN'T Verified 03/15/18 09:27 DIGEST IT" Physical Exam Vital signs: Vital Signs 03/17/18 20:00 03/18/18 00:00 03/18/18 04:00 Temperature 98.8 F 96.4 F L 97.6 F Pulse Rate 98 H 73 67 Respiratory Rate 18 18 18 Blood Pressure 107/53 L 110/73 115/66 Pulse Oximetry 93 L 95 96 03/18/18 08:00 03/18/18 12:00 03/18/18 16:00 Temperature 97.9 F 97.4 F L 98.7 F Pulse Rate 80 102 H 110 H Respiratory Rate 20 20 20 Blood Pressure 122/62 147/92 H 135/66 Pulse Oximetry 94 L 93 L 93 L Intake & Output 03/17/1818 03/18/18 18:59 06:59 18:59 Intake Total 0 / 0 60 / 60 Output Total 500 / 500 200 / 200 Balance -500 / -500 -140 / -140 Intake: IV 0 / 0 NS Inj 500 ML @ 50 mls/hr IV. 0 / 0 SIG .Q10H [facility] Rx#:[id number] Oral 60 / 60 Output: Urine 500 / 500 200 / 200 Other: # Incontinent Voids 2 - Routine Neurological Exam alert, poor recent memory ,follow commands CN intact MOTOR 5/ 5BUE and BLE Review/Management - Diagnosis (1) Normal pressure hydrocephalus Code(s): G91.2 - (Idiopathic) normal pressure hydrocephalus Status: Acute Current Visit: Yes - Review/Management Plan: agree with recommendation for LP to withdraw 30 c csf and assess gait. Would send CSF for routine lab studies as well
--- NOTE | 2018-03-19 07:38 | P.PN ---
Subjective Interval history: Follow-up of patient with possible NPH. Patient seen and examined. Patient reports she feels good. She slept well. She is more alert and oriented this morning. She denies any acute medical complaints. VSS. She is afebrile. Physical Exam Vital signs: Vital Signs 03/18/18 08:00 03/18/18 12:00 03/18/18 16:00 Temperature 97.9 F 97.4 F L 98.7 F Pulse Rate 80 102 H 110 H Respiratory Rate 20 20 20 Blood Pressure 122/62 147/92 H 135/66 Pulse Oximetry 94 L 93 L 93 L 03/18/18 20:00 03/18/18 21:00 03/19/18 00:00 Temperature 97.7 F 97.4 F L Pulse Rate 107 H 107 H 77 Respiratory Rate 18 19 Blood Pressure 101/51 L 136/67 Pulse Oximetry 94 L 94 L 03/19/18 02:00 03/19/18 04:00 Temperature 98.3 F Pulse Rate 106 H 85 Respiratory Rate 18 Blood Pressure 128/58 L Pulse Oximetry 94 L Intake & Output 03/18/18 03/19/18 03/19/18 18:59 06:59 18:59 Intake Total 420 / 420 Output Total 200 / 200 1100 / 1100 Balance 220 / 220 -1100 / -1100 Weight 34.2 kg Intake: Oral 420 / 420 Output: Urine 200 / 200 1100 / 1100 Other: # Voids 6 # Incontinent Voids 2 # Bowel Movements 0 Narrative: GENERAL: Thin elderly female, INAD. Awake and alert. Oriented x 3. Appears comfortable. SKIN: Warm and dry. No generalized rash. HEENT: Atraumatic. Normocephalic. No facial asymmetry. Pupils equal and round. No scleral icterus. No injection or drainage. No nasal bleeding or discharge. Mucous membranes pink and moist. NECK: Trachea midline. CARDIOVASCULAR: Regular rate and rhythm. +Systolic murmur. RESPIRATORY: No accessory muscle use. Clear to auscultation. Breath sounds equal bilaterally. GASTROINTESTINAL: Abdomen soft, non-tender, nondistended. +BS. MUSCULOSKELETAL: Extremities without clubbing, cyanosis, or edema. No obvious deformities. NEUROLOGICAL: Awake and alert. Partially oriented. No obvious cranial nerve deficits. Motor grossly within normal limits. No focal neurologic findings appreciated. Normal speech. PSYCHIATRIC: Appropriate mood and affect; insight and judgment good. Results - Labs CBC & Chem 7: 03/16/18 05:11 03/15/18 10:10 Laboratory Results - last 24 hr 03/16/18 05:11 Thiamine 187 H - Procedures None Assessment and Plan - Assessment (1) Multiple falls Code(s): R29.6 - Repeated falls Status: Acute (2) Confusion Code(s): R41.0 - Disorientation, unspecified Status: Acute - Plan 87 y/o female with history of hypertension and dyslipidemia who was brought to ER with frequent falls, confusion and urinary incontinence. Possible Normal Pressure Hydrocephalus CT head reviewed, shows moderate symmetric ventriculomegaly and diminished white matter density, likelihood of NPH MRI brain shows moderate ventriculomegaly MRI thoracic spine shows multiple chronic appearing compression fractures T7, T9 , T10 and T12 and likely subacute fracture L1, no spinal cord compromise -Neurology following, appreciate assistance. -Neurosurgery following, appreciate assistance. Recommends high volume LP of 30cc with eval by PT before and after. IR consulted for procedure, CSF studies as ordered by Neurology. -fall precautions -continue with PT/OT/ST Worsening confusion, suspect multifactorial with likely NPH and and possible dementia ?dementia TSH WNL, ammonia level normal B12 381, MMA pending RPR nonreactive -continue to monitor mentation through time especially after LP completed -ST consulted for cognitive evaluation. Patient with moderate to severe cognitive impairment. Will reassess after high volume LP done. -monitor -plan as above Recurrent falls at home, likely due in part to NPH -plan as above -fall precautions -continue with PT Urinary incontinence, likely secondary to NPH UA unremarkable -plan as above Leukocytosis, suspect reactive Repeat white count WNL she is afebrile -monitor white count as indicated Subacute L1 fracture Back pain Vitamin D level 14 in September -Given 50,000u ergocalciferol once followed by Vitamin D supplementation daily -Tylenol prn Hypertension/ dyslipidemia, chronic -continue on Toprol XL and Lipitor Hx of atrial fibrillation no events of afib on tele -continue to monitor DVT prophylaxis with SCD's Discussed Condition With: patient, nursing staff, Dr. Cruz Discharge Planning: Not ready for discharge. Plan for high volume LP then will reassess gait and cognitive function.
--- NOTE | 2018-03-19 10:50 | P.PNNS ---
Subjective Interval history: Patient without any issues Physical Exam Vital signs: Vital Signs 03/18/18 12:00 03/18/18 16:00 03/18/18 20:00 Temperature 97.4 F L 98.7 F 97.7 F Pulse Rate 102 H 110 H 107 H Respiratory Rate 20 20 18 Blood Pressure 147/92 H 135/66 101/51 L Pulse Oximetry 93 L 93 L 94 L 03/18/18 21:00 03/19/18 00:00 03/19/18 02:00 Temperature 97.4 F L Pulse Rate 107 H 77 106 H Respiratory Rate 19 Blood Pressure 136/67 Pulse Oximetry 94 L 03/19/18 04:00 03/19/18 08:00 Temperature 98.3 F 98.1 F Pulse Rate 85 92 H Respiratory Rate 18 18 Blood Pressure 128/58 L 124/61 Pulse Oximetry 94 L 93 L Intake & Output 03/18/18 03/19/18 03/19/18 18:59 06:59 18:59 Intake Total 420 / 420 Output Total 200 / 200 1100 / 1100 Balance 220 / 220 -1100 / -1100 Weight 34.2 kg Intake: Oral 420 / 420 Output: Urine 200 / 200 1100 / 1100 Other: # Voids 6 # Incontinent Voids 2 # Bowel Movements 0 Narrative: E4 Aox self, hospital able to spell "World" forward and backwards-good concentration poor memory follows commands x4 5/5 strength in the UEs and LEs Assessment and Plan - Plan 87yoF with ventriculomegaly with clinical concerns for NPH -Discussed the risks, indications, and alternatives to surgical intervention for NPH, specifically the elective placement of a SOFTWARE [employer]INEER shunt with the patient and the step daughter at the bedside -Due to patients advanced age, would recommend complete workup of NPH to determine benefit of VPS -Recommend high volume LP (30-40 cc's) with pre and post-procedure evaluation by physical therapy to determine if would truly benefit from CSF diversion. Recommend assessment of CSF for infectious etiologies also
[2018-03-20] MEDS: Acetaminophen 325 MG Tablet PO PRN ×2 (02:07→21:17)
--- NOTE | 2018-03-20 07:20 | P.PN ---
Subjective Interval history: Patient for lumbar puncture today. Patient is stable. No significant changes. Discussed with nursing staff, no acute events overnight. Physical Exam Vital signs: Vital Signs 03/19/18 08:00 03/19/18 09:00 03/19/18 12:00 Temperature 98.1 F 97.4 F L Pulse Rate 92 H 107 H 75 Respiratory Rate 18 16 Blood Pressure 124/61 118/61 Pulse Oximetry 93 L 94 L 03/19/18 16:00 03/19/18 20:00 03/20/18 00:00 Temperature 97.9 F 97.8 F 97.7 F Pulse Rate 89 86 68 Respiratory Rate 19 17 18 Blood Pressure 143/70 H 106/53 L 126/67 Pulse Oximetry 94 L 94 L 94 L 03/20/18 04:00 Temperature 97.8 F Pulse Rate 86 Respiratory Rate 18 Blood Pressure 116/61 Pulse Oximetry 96 Intake & Output 03/19/18 03/20/18 03/20/18 18:59 06:59 18:59 Intake Total 1080 / 1080 Output Total 700 / 700 800 / 800 Balance 380 / 380 -800 / -800 Intake: Oral 1080 / 1080 Output: Urine 700 / 700 800 / 800 Other: # Voids 6 # Incontinent Voids 2 # Bowel Movements 0 Narrative: GENERAL: Thin elderly female, INAD. Awake and alert. Oriented. Appears comfortable. SKIN: Warm and dry. No generalized rash. HEENT: Atraumatic. Normocephalic. No facial asymmetry. Pupils equal and round. No scleral icterus. No injection or drainage. No nasal bleeding or discharge. Mucous membranes pink and moist. NECK: Trachea midline. CARDIOVASCULAR: Regular rate and rhythm. +Systolic murmur. RESPIRATORY: No accessory muscle use. Clear to auscultation. Breath sounds equal bilaterally. GASTROINTESTINAL: Abdomen soft, non-tender, nondistended. +BS. MUSCULOSKELETAL: Extremities without clubbing, cyanosis, or edema. No obvious deformities. NEUROLOGICAL: Awake and alert. Partially oriented. No obvious cranial nerve deficits. Motor grossly within normal limits. No focal neurologic findings appreciated. Normal speech. PSYCHIATRIC: Appropriate mood and affect; insight and judgment good. Results - Labs CBC & Chem 7: 03/16/18 05:11 03/15/18 10:10 - Procedures None Assessment and Plan - Assessment (1) Multiple falls Code(s): R29.6 - Repeated falls Status: Acute (2) Confusion Code(s): R41.0 - Disorientation, unspecified Status: Acute - Plan 87 y/o female with history of hypertension and dyslipidemia who was brought to ER with frequent falls, confusion and urinary incontinence. Possible Normal Pressure Hydrocephalus CT head reviewed, shows moderate symmetric ventriculomegaly and diminished white matter density, likelihood of NPH MRI brain shows moderate ventriculomegaly MRI thoracic spine shows multiple chronic appearing compression fractures T7, T9 , T10 and T12 and likely subacute fracture L1, no spinal cord compromise -Neurology following, appreciate assistance. -Neurosurgery following, appreciate assistance. Recommends high volume LP of 30cc with eval by PT before and after. IR consulted for procedure, CSF studies as ordered by Neurology. Planned for IR today. -fall precautions -continue with PT/OT/ST Worsening confusion, suspect multifactorial with likely NPH and and possible dementia ?dementia TSH WNL, ammonia level normal B12 381, MMA 0.13 RPR nonreactive -continue to monitor mentation through time especially after LP completed -ST consulted for cognitive evaluation. Patient with moderate to severe cognitive impairment. Will reassess after high volume LP done. -Give one time IM injection B12 1000mcg -monitor -plan as above Recurrent falls at home, likely due in part to NPH -plan as above -fall precautions -continue with PT Urinary incontinence, likely secondary to NPH UA unremarkable -plan as above Leukocytosis, suspect reactive Repeat white count WNL she is afebrile -monitor white count as indicated Subacute L1 fracture Back pain Vitamin D level 14 in September -Given 50,000u ergocalciferol once followed by Vitamin D supplementation daily -Tylenol prn Hypertension/ dyslipidemia, chronic -continue on Toprol XL and Lipitor Hx of atrial fibrillation no events of afib on tele -continue to monitor DVT prophylaxis with SCD's Discussed Condition With: patient, nursing staff, Dr. Puga Discharge Planning: Not ready for discharge. Plan for high volume LP then will reassess gait and cognitive function.
--- NOTE | 2018-03-20 08:04 | P.PNNS ---
Subjective Interval history: without any issues, LP not performed yet. patient unsure when will occur Physical Exam Vital signs: Vital Signs 03/19/18 09:00 03/19/18 12:00 03/19/18 16:00 Temperature 97.4 F L 97.9 F Pulse Rate 107 H 75 89 Respiratory Rate 16 19 Blood Pressure 118/61 143/70 H Pulse Oximetry 94 L 94 L 03/19/18 20:00 03/20/18 00:00 03/20/18 04:00 Temperature 97.8 F 97.7 F 97.8 F Pulse Rate 86 68 86 Respiratory Rate 17 18 18 Blood Pressure 106/53 L 126/67 116/61 Pulse Oximetry 94 L 94 L 96 Intake & Output 03/19/18 03/20/18 03/20/18 18:59 06:59 18:59 Intake Total 1080 / 1080 Output Total 700 / 700 800 / 800 Balance 380 / 380 -800 / -800 Intake: Oral 1080 / 1080 Output: Urine 700 / 700 800 / 800 Other: # Voids 6 # Incontinent Voids 2 # Bowel Movements 0 Narrative: E4 Aox self, hospital able to spell "World" forward and backwards-good concentration poor memory follows commands x4 5/5 strength in the UEs and LEs Assessment and Plan - Plan 87yoF with ventriculomegaly with clinical concerns for NPH -Discussed the risks, indications, and alternatives to surgical intervention for NPH, specifically the elective placement of a COIL CONNECTOR shunt with the patient and the step daughter at the bedside on 03/18 -Due to patients advanced age, would recommend complete workup of NPH to determine benefit of VPS -Recommend high volume LP (30-40 cc's) with pre and post-procedure evaluation by physical therapy to determine if would truly benefit from CSF diversion. Recommend assessment of CSF for infectious etiologies also
--- NOTE | 2018-03-20 10:45 | P.RAD ---
Post Procedure Progress Note - Procedure Information Procedure Date: 03/20/18 Supervising Radiologist: Maksim Santos MD Estimated blood loss (mL): 0 Anesthesia: Local - Plan of Activity Patient to Unit: [facility]OP[facility] Patient Condition: Good See PACS Report for procedural detail/treatment.
[2018-03-20 11:19] LABS: RBC on Tube 1 0 /mm3; RBC on Tube 4 0 /mm3
--- NOTE | 2018-03-20 11:46 | IR ---
EXAM DATE: 03/20/2018 11:09 AM EDT AGE/SEX: 87 years / Female INDICATIONS: Patient with history of frequent falls.appears to more confused. CLINICAL DATA: This is the patient's initial encounter. Patient reports that signs and symptoms have been present for 2 weeks and indicates a pain score of 0/10. MEDICAL/SURGICAL HISTORY: Hypertension. Hypercholesterolemia. Glaucoma Hysterectomy. hip surg bin. COMPARISON: No prior exams available for comparison. FLUORO TIME (min): 0.3 IMAGE SERIES: 4 ACCESS SITE: L2-3 LUMBAR PUNCTURE TIME: 1028 hours FLUID: Total volume of 20 cc of clear fluid was removed. Fluid was sent to lab for ordered studies. . . PROCEDURE: 1. Fluoroscopic guided lumbar puncture. The risks, benefits and alternatives to the procedure were explained and verbal and written consent w as obtained. The site was prepped in sterile fashion. Full sterile technique was used, including ca p, mask, sterile gloves and gown and a large sterile sheet. Hand hygiene and 2% chlorhexidine and/or betadine/alcohol prep was utilized per protocol for cutaneous antisepsis. The skin and subcutaneous tissues were infiltrated with local anesthetic solution. With fluoroscopic guidance the lumbar thecal sac was punctured at the level above. The fluid describ ed above was removed without difficulty. The patient tolerated the procedure well and there were no complications. CONCLUSION: 1. Uncomplicated fluoroscopically guided lumbar puncture. Electronically signed by: Maksim Santos MD 03/20/2018 11:45 AM EDT
[2018-03-20 11:48] LABS: Total Protein,CSF 41.3 mg/dL (15.0-45.0)
[2018-03-20 12:03] LABS: Lymphocytes, CSF 100 %; Neutrophils,CSF 0 %
--- NOTE | 2018-03-21 08:23 | P.PN ---
Subjective Interval history: Follow up on patient with possible NPH. Patient seen and examined. Family is at the bedside. Family has decided on rehab placement at the time of discharge. They are concerned about patient's weight loss. Per PT note, no significant improvement following LP. Awaiting speech therapy reevaluation today. Physical Exam Vital signs: Vital Signs 03/20/18 12:00 03/20/18 17:42 03/20/18 17:47 Temperature 98.0 F 97.8 F Pulse Rate 83 108 H Respiratory Rate 16 16 Blood Pressure 144/66 H 110/53 L Pulse Oximetry 95 96 03/20/18 20:00 03/20/18 20:19 03/21/18 04:00 Temperature 97.5 F L 97.6 F Pulse Rate 94 H 102 H 80 Respiratory Rate 18 18 Blood Pressure 150/68 H 131/82 Pulse Oximetry 96 Intake & Output 03/20/18 03/21/18 03/21/18 18:59 06:59 18:59 Output Total Balance - -1 Output: Stool Other: # Voids 3 Date of Last Bowel Movement 03/20/18 Narrative: GENERAL: Thin elderly female, INAD. SKIN: Warm and dry. No generalized rash. HEENT: Atraumatic. Normocephalic. No facial asymmetry. Pupils equal and round. No scleral icterus. No injection or drainage. No nasal bleeding or discharge. Mucous membranes pink and moist. NECK: Trachea midline. CARDIOVASCULAR: Regular rate and rhythm. +Systolic murmur. RESPIRATORY: No accessory muscle use. Clear to auscultation. Breath sounds equal bilaterally. GASTROINTESTINAL: Abdomen soft, non-tender, nondistended. +BS. MUSCULOSKELETAL: Extremities without clubbing, cyanosis, or edema. No obvious deformities. NEUROLOGICAL: Awake and alert. Partially oriented. No obvious cranial nerve deficits. Motor grossly within normal limits. No focal neurologic findings appreciated. Normal speech. PSYCHIATRIC: Appropriate mood and affect; insight and judgment good. Results - Labs CBC & Chem 7: 03/16/18 05:11 03/15/18 10:10 Laboratory Results - last 24 hr 03/16/18 03/20/18 03/20/18 05:11 10:28 10:28 Methylmalonic Acid 0.13 CSF Volume (1) 4.5 CSF Supernat Color (1) Clear CSF Gross Blood (1) 0 CSF WBC (1) CSF RBC (1) CSF Volume (2) 4.8 CSF Supernat Color (2) Clear CSF Gross Blood (2) 0 CSF Volume (3) 5.0 CSF Supernat Color (3) Clear CSF Gross Blood (3) 0 CSF Volume (4) 5.0 CSF Supernat Color (4) Clear CSF Gross Blood (4) 0 CSF WBC (4) 1 CSF RBC (4) 0 CSF Neutrophils % 0 CSF Lymphocytes % 100 CSF Glucose 53 CSF Total Protein 41.3 03/20/18 03/20/18 10:28 10:28 Methylmalonic Acid CSF Volume (1) CSF Supernat Color (1) CSF Gross Blood (1) CSF WBC (1) 1 CSF RBC (1) 0 CSF Volume (2) CSF Supernat Color (2) CSF Gross Blood (2) CSF Volume (3) CSF Supernat Color (3) CSF Gross Blood (3) CSF Volume (4) CSF Supernat Color (4) CSF Gross Blood (4) CSF WBC (4) CSF RBC (4) CSF Neutrophils % CSF Lymphocytes % CSF Glucose CSF Total Protein Cancelled Microbiology 03/20/18 10:28 Lumbar Puncture Gram Stain - Final - Imaging Impressions Lumbar Puncture Fluoroscopy 03/20/18 00:00 CONCLUSION: 1. Uncomplicated fluoroscopically guided lumbar puncture. - Procedures None Assessment and Plan - Assessment (1) Multiple falls Code(s): R29.6 - Repeated falls Status: Acute (2) Confusion Code(s): R41.0 - Disorientation, unspecified Status: Acute - Plan 87 y/o female with history of hypertension and dyslipidemia who was brought to ER with frequent falls, confusion and urinary incontinence. Possible Normal Pressure Hydrocephalus CT head reviewed, shows moderate symmetric ventriculomegaly and diminished white matter density, likelihood of NPH MRI brain shows moderate ventriculomegaly MRI thoracic spine shows multiple chronic appearing compression fractures T7, T9 , T10 and T12 and likely subacute fracture L1, no spinal cord compromise -Neurology following, appreciate assistance. -Neurosurgery following, appreciate assistance. -s/p high volume LP yesterday. Per PT, no significant improvement yesterday after procedure. Will reevaluate patient today. Awaiting speech therapies reevaluation as well. -CSF culture no growth in 24 hours -fall precautions -continue with PT/OT/ST -discussed with family today. We will have patient evaluated by [facility] for possible rehab placement and if patient does not meet criteria will consider SNF Worsening confusion, suspect multifactorial with likely NPH and and possible dementia ?dementia TSH WNL, ammonia level normal B12 381, MMA 0.13 RPR nonreactive -continue to monitor mentation through time especially after LP completed -ST consulted for cognitive evaluation. Patient with moderate to severe cognitive impairment. Plan to have ST reassess patient today. -Given one time IM injection B12 1000mcg -monitor -plan as above Recurrent falls at home, possibly due in part to NPH -plan as above -fall precautions -continue with PT Urinary incontinence, likely secondary to NPH UA unremarkable -plan as above Leukocytosis, suspect reactive Repeat white count WNL she is afebrile -monitor white count as indicated Subacute L1 fracture Back pain Vitamin D level 14 in September -Given 50,000u ergocalciferol once followed by Vitamin D supplementation daily -Tylenol prn Hypertension/ dyslipidemia, chronic -continue on Toprol XL and Lipitor Hx of atrial fibrillation no events of afib on tele -continue to monitor DVT prophylaxis with SCD's Discussed Condition With: patient, nursing staff, family at bedside, Dr. Puga Discharge Planning: Possible discharge today pending neurology and neurosurgery clearance. Case management assisting with discharge planning, Taye mustafa requested.
--- NOTE | 2018-03-21 16:24 | P.DS ---
Date of admission: 03/15/18 13:35 Primary care physician: Thu Morrison MD Attending physician on discharge: Al Puga Anticipated date of discharge: 03/21/18 Brief History from admission: patient is a 87 y/o female with history of hypertension and dyslipidemia who was brought to ER with frequent falls. information was obtained from the care- assembly manager at the bedside. she says that she's normally walks with a walker but she' s had a few falls over the past one week. she seems to be more confused with worsening urinary incontinence.at the time of my evaluation she was resting comfortably with no acute distress with no chest pain, sob, abdominal pain, nausea. she lives with her son. DS: Diagnosis - Discharge Diagnosis (1) Multiple falls Status: Acute (2) Confusion Status: Acute (3) Compression fracture of L1 lumbar vertebra Status: Acute (4) Normal pressure hydrocephalus Status: Acute DS: Summary Hospital Course: Patient was brought in due to increased confusion, frequent falls and urinary incontinence. CT was obtained in the ED which was suggestive of NPH. UA was negative for UTI. Patient was seen in consultation by neurology and neurosurgery. MRI of the brain revealed stable ventriculomegaly. Neurosurgery recommended a high volume lumbar puncture which was done by IR on 03/20/18. MRI of the thoracic spine was obtained which revealed a subacute fracture L1. Patient was seen in consultation by physical therapy occupational therapy and speech therapy. Specifically PT and ST cognitive evaluations were done before and after patient had the high-volume LP and did not reveal any significant improvement. Opening pressures were ordered but not done at the time of the LP. Neurosurgery did not feel that VPS would be beneficial. Patient was accepted at [facility] for comprehensive rehabilitation prior to discharge home. - Time Spent with Patient Total time spent providing and/or coordinating discharge services: Greater than 30 minutes Exam Vital signs: Vital Signs 03/20/18 17:42 03/20/18 17:47 03/20/18 20:00 Temperature 97.8 F 97.5 F L Pulse Rate 108 H 94 H Respiratory Rate 16 18 Blood Pressure 110/53 L 150/68 H Pulse Oximetry 96 96 03/20/18 20:19 03/21/18 04:00 03/21/18 08:00 Temperature 97.6 F 98.1 F Pulse Rate 102 H 80 89 Respiratory Rate 18 16 Blood Pressure 131/82 148/79 H Pulse Oximetry 96 03/21/18 10:47 03/21/18 12:00 Temperature 98.1 F Pulse Rate 87 67 Respiratory Rate 12 Blood Pressure 105/57 L Pulse Oximetry 96 Intake & Output 03/20/18 03/21/18 03/21/18 18:59 06:59 18:59 Output Total Balance -1 / -1 Output: Stool Other: # Voids 3 Date of Last Bowel Movement 03/20/18 Narrative: GENERAL: Thin elderly female. Awake and alert. Not in any distress. SKIN: Warm and dry. No generalized rash. HEENT: Atraumatic. Normocephalic. No facial asymmetry. Pupils equal and round. No scleral icterus. No injection or drainage. No nasal bleeding or discharge. Mucous membranes pink and moist. NECK: Trachea midline. CARDIOVASCULAR: Regular rate and rhythm. +Systolic murmur. RESPIRATORY: No accessory muscle use. Clear to auscultation. Breath sounds equal bilaterally. GASTROINTESTINAL: Abdomen soft, non-tender, nondistended. +BS. MUSCULOSKELETAL: Extremities without clubbing, cyanosis, or edema. No obvious deformities. NEUROLOGICAL: Awake and alert. Partially oriented. No obvious cranial nerve deficits. Motor grossly within normal limits. No focal neurologic findings appreciated. Normal speech. PSYCHIATRIC: Appropriate mood and affect; insight and judgment fair. Results Procedures completed during hospitalization: Monika Ruffin IR lumbar puncture Signed EXAM DATE: 03/20/2018 11:09 AM EDT AGE/SEX: 87 years / Female INDICATIONS: Patient with history of frequent falls.appears to more confused. CLINICAL DATA: This is the patient's initial encounter. Patient reports that signs and symptoms have been present for 2 weeks and indicates a pain score of 0 /10. MEDICAL/SURGICAL HISTORY: Hypertension. Hypercholesterolemia. Glaucoma Hysterectomy. hip surgery. COMPARISON: No prior exams available for comparison. FLUORO TIME (min): 0.3 IMAGE SERIES: 4 ACCESS SITE: L2-3 LUMBAR PUNCTURE TIME: 1028 hours FLUID: Total volume of 20 cc of clear fluid was removed. Fluid was sent to lab for ordered studies. Pending studies at discharge: Pending at discharge 03/20/18 10:28 Cytology [PTH] Stat Labs on day of discharge: Labs from last 24 hours 03/17/18 13:17 Vit D 1,25-Dihydroxy 61 Preliminary micro results at discharge 03/20/18 10:28 CSF Culture - Preliminary Lumbar Puncture No growth in 24 hours - Impressions ITS Impressions Cervical Spine CT 03/15/18 09:24 CONCLUSION: Slight spondylolisthesis at C4-5 without evidence of cervical spine fracture. Possibility of ligamentous injury should be considered. Head CT 03/15/18 09:24 CONCLUSION: Moderate symmetric ventriculomegaly and diminished white matter density. Correlate with likelihood of normal pressure hydrocephalus. No acute injury. . Pelvis X-Ray 03/15/18 09:24 CONCLUSION: 1. Diffuse osseous demineralization with no acute fracture. 2. Old right subcapital fracture secured with 3 osseous screws. 3. Atherosclerotic calcification of the regional vasculature. Cervical Spine X-Ray 03/15/18 10:33 CONCLUSION: Mild C4-5 spondylolisthesis which appears grossly stable in flexion and extension. Cervical Spine MRI 03/16/18 00:00 CONCLUSION: 1. Mild degenerative disc disease with some loss of height predominantly at C5- 6. Minimal grade 1 anterolisthesis of C4 on 5. 2. Spinal canal and neural foramina are adequate throughout without cord or nerve root compromise to explain current clinical symptoms. Head MRI 03/16/18 00:00 CONCLUSION: 1. Thoracic Spine MRI 03/16/18 00:00 CONCLUSION: 1. Multiple compression fractures of the dorsal spine including T7, T9, T10 and T12. These all appear to be chronic. 2. There is a fracture through the inferior endplate of L1. There is some edema identified in portions of the L1 vertebral body possibly representing a subacute injury superimposed on a chronic fracture deformity. 3. Despite the multiple fractures and some degenerative disc disease/posterior element hypertrophy, the spinal canal appears to be adequate throughout without cord compromise to explain current clinical symptoms. Lumbar Puncture Fluoroscopy 03/20/18 00:00 CONCLUSION: 1. Uncomplicated fluoroscopically guided lumbar puncture. Discharge Plan - Discharge Disposition Patient Disposition: [facility] Re[facility] Inpatient - Discharge Condition Condition: Good - Discharge Order Discharge Orders: Discharge Order (Routine); Ordered 03/21/18 Ordered By: Leilani Thomas - Discharge Details Anticipated Discharge Date: 03/21/18 - Physicians Team Primary Care Provider: Thu Morrison Attending Provider: Al Puga Other Providers: Fabi Ferris MD ; Rock Durand MD
--- NOTE | 2018-03-21 17:48 | P.PNNS ---
Subjective Interval history: Pt awake and alert. She is not sure if her symptoms improved after her LP. PT note states: NO SIGNIFICANT CHANGES NOTED WITH GAIT ASSESSMENT TODAY COMPARED TO YESTERDAY. PT IS FEARFUL OF FALLING AND REQUIRES MIN ASSIST DURING GAIT. <Chemo Velarde - Last Filed: 03/21/18 17:42> Physical Exam Vital signs: Vital Signs 03/20/18 17:47 03/20/18 20:00 03/20/18 20:19 Temperature 97.5 F L Pulse Rate 94 H 102 H Respiratory Rate 16 18 Blood Pressure 110/53 L 150/68 H Pulse Oximetry 96 03/21/18 04:00 03/21/18 08:00 03/21/18 10:47 Temperature 97.6 F 98.1 F Pulse Rate 80 89 87 Respiratory Rate 18 16 Blood Pressure 131/82 148/79 H Pulse Oximetry 96 03/21/18 12:00 Temperature 98.1 F Pulse Rate 67 Respiratory Rate 12 Blood Pressure 105/57 L Pulse Oximetry 96 Intake & Output 03/20/18 03/21/18 03/21/18 18:59 06:59 18:59 Output Total Balance - / -1 Output: Stool Other: # Voids 3 Date of Last Bowel Movement 03/20/18 - Constitutional no acute distress - Routine HEENT Exam Head: Present: normocephalic, atraumatic Eye: Present: PERRL. Absent: conjunctival icterus ENT: Present: oropharynx clear - Routine Neck Exam Present: trachea midline - Routine Respiratory Exam Present: CTA bilaterally. Absent: respiratory distress, rhonchi, wheezes - Routine Cardiovascular Exam Present: RRR, S1, S2 - Routine Abdominal Exam Present: soft, normoactive bowel sounds. Absent: tenderness - Routine Skin Exam Present: intact. Absent: cyanosis, erythema - Routine Neurological Exam Present: alert, moving all extremities. Absent: sensory deficit, motor deficit - Routine Psychiatric Exam Present: cooperative. Absent: normal thought process, good insight, good judgment <Chmeo Velarde - Last Filed: 03/21/18 17:42> Vital signs: Vital Signs 03/20/18 20:00 03/20/18 20:19 03/21/18 04:00 Temperature 97.5 F L 97.6 F Pulse Rate 94 H 102 H 80 Respiratory Rate 18 18 Blood Pressure 150/68 H 131/82 Pulse Oximetry 96 03/21/18 08:00 03/21/18 10:47 03/21/18 12:00 Temperature 98.1 F 98.1 F Pulse Rate 89 87 67 Respiratory Rate 16 12 Blood Pressure 148/79 H 105/57 L Pulse Oximetry 96 96 03/21/18 17:41 Temperature 97.5 F L Pulse Rate 83 Respiratory Rate 16 Blood Pressure 115/57 L Pulse Oximetry 97 Intake & Output 03/20/18 03/21/18 03/21/18 18:59 06:59 18:59 Output Total Balance - Output: Stool Other: # Voids 3 Date of Last Bowel Movement 03/20/18 <Esteban Johnson - Last Filed: 03/21/18 18:47> Assessment and Plan - Assessment (1) Normal pressure hydrocephalus Code(s): G91.2 - (Idiopathic) normal pressure hydrocephalus Status: Acute (2) Multiple falls Code(s): R29.6 - Repeated falls Status: Acute (3) Confusion Code(s): R41.0 - Disorientation, unspecified Status: Acute - Plan 87yoF with ventriculomegaly with clinical concerns for NPH -Continue with PT. If pt did not benefit from high volume CSF removal than likely would not benefit from a VPS. Will discuss with family at bedside when available. <Chemo Velarde - Last Filed: 03/21/18 17:42> - Attending Attestation The exam, history, and the medical decision-making described in the above note were completed with the assistance of the mid-level provider. I reviewed and agree with the findings presented. I attest that I had a [id number] encounter with the patient on the same day, and personally performed and documented my assessment and findings in the medical record. <Esteban Johnson - Last Filed: 03/21/18 18:47>
[2018-03-21] MEDS: Acetaminophen 325 MG Tablet PO PRN (21:15)
--- NOTE | 2018-03-22 07:36 | P.PN ---
Subjective Interval history: Follow up on patient with possible NPH. Patient seen and examined. Any acute medical complaints. When asked if she feels improved after the LP, patient replies "I do not know". No significant change noted from PT and ST assessment following LP. Reviewed neurosurgery's note, unlikely VPS will benefit patient. DW nursing staff, no acute issues noted. Physical Exam Vital signs: Vital Signs 03/21/18 08:00 03/21/18 10:47 03/21/18 12:00 Temperature 98.1 F 98.1 F Pulse Rate 89 87 67 Respiratory Rate 16 12 Blood Pressure 148/79 H 105/57 L Pulse Oximetry 96 96 03/21/18 17:41 03/21/18 20:00 03/21/18 23:55 Temperature 97.5 F L 97.8 F Pulse Rate 83 98 H 80 Respiratory Rate 16 18 Blood Pressure 115/57 L 112/58 L Pulse Oximetry 97 95 03/22/18 00:00 Temperature 98.1 F Pulse Rate 82 Respiratory Rate 18 Blood Pressure 107/53 L Pulse Oximetry 94 L Intake & Output 03/21/18 03/22/18 03/22/18 18:59 06:59 18:59 Intake Total 480 / 480 Balance 480 / 480 Intake: Oral 480 / 480 Narrative: GENERAL: Thin elderly female. Awake and alert. Not in any distress. SKIN: Warm and dry. No generalized rash. HEENT: Atraumatic. Normocephalic. No facial asymmetry. Pupils equal and round. No scleral icterus. No injection or drainage. No nasal bleeding or discharge. Mucous membranes pink and moist. NECK: Trachea midline. CARDIOVASCULAR: Regular rate and rhythm. +Systolic murmur. RESPIRATORY: No accessory muscle use. Clear to auscultation. Breath sounds equal bilaterally. GASTROINTESTINAL: Abdomen soft, non-tender, nondistended. +BS. MUSCULOSKELETAL: Extremities without clubbing, cyanosis, or edema. No obvious deformities. NEUROLOGICAL: Awake and alert. Partially oriented. No obvious cranial nerve deficits. Motor grossly within normal limits. No focal neurologic findings appreciated. Normal speech. PSYCHIATRIC: Appropriate mood and affect; insight and judgment fair. Results - Labs CBC & Chem 7: 03/16/18 05:11 03/15/18 10:10 Laboratory Results - last 24 hr 03/17/18 13:17 Vit D 1,25-Dihydroxy 61 Microbiology 03/20/18 10:28 Lumbar Puncture Gram Stain - Final 03/20/18 10:28 Lumbar Puncture CSF Culture - Preliminary No growth in 24 hours - Procedures None Assessment and Plan - Assessment (1) Multiple falls Code(s): R29.6 - Repeated falls Status: Acute (2) Confusion Code(s): R41.0 - Disorientation, unspecified Status: Acute - Plan 87 y/o female with history of hypertension and dyslipidemia who was brought to ER with frequent falls, confusion and urinary incontinence. Possible Normal Pressure Hydrocephalus CT head reviewed, shows moderate symmetric ventriculomegaly and diminished white matter density, likelihood of NPH MRI brain shows moderate ventriculomegaly MRI thoracic spine shows multiple chronic appearing compression fractures T7, T9 , T10 and T12 and likely subacute fracture L1, no spinal cord compromise s/p LP, no opening pressure recorded although it was ordered. No significant improvement in patient's symptoms following LP. -Neurology following, appreciate assistance. -Neurosurgery following, appreciate assistance. Unlikely patient would benefit from VPS. -CSF culture no growth in 48 hours -fall precautions -continue with PT/OT/ST -Patient accepted to [facility]. Patient can be transferred once bed available. Worsening confusion, suspect multifactorial with likely NPH and and possible dementia ?dementia TSH WNL, ammonia level normal B12 381, MMA 0.13 RPR nonreactive -ST consulted for cognitive evaluation. Patient with moderate to severe cognitive impairment. No significant change after LP. -Given one time IM injection B12 1000mcg -monitor -plan as above Recurrent falls at home, possibly due in part to NPH -plan as above -fall precautions -continue with PT Urinary incontinence, likely secondary to NPH UA unremarkable -plan as above Leukocytosis, suspect reactive Repeat white count WNL she is afebrile -monitor white count as indicated Subacute L1 fracture Back pain Vitamin D level 14 in September -Given 50,000u ergocalciferol once followed by Vitamin D supplementation daily -Tylenol prn Hypertension/ dyslipidemia, chronic -continue on Toprol XL and Lipitor Hx of atrial fibrillation no events of afib on tele -continue to monitor DVT prophylaxis with SCD's Discussed Condition With: patient, nursing staff. Attempted to contact son Gerard but no answer and no VM. Discharge Planning: Patient medically cleared for discharge to [facility] once bed available
[2018-03-22] MEDS: Acetaminophen 325 MG Tablet PO PRN (10:38)
== END 2018-03-22 16:03 ==
LOC: NEPC 08:31 → NEDA 13:35 → N05 17:46
PROVIDERS: ADMIT Hospitalist; ATTEND Hospitalist

== ENCOUNTER 2018-05-22 19:34 | Observation (INO) ==
[2018-05-22] MEDS ORDERED: Pantoprazole Inj 40 MG Vial IV.PUSH ONE (20:55)
--- NOTE | 2018-05-22 21:00 | ED ---
HPI General Chief complaint: Fall Stated complaint: Fall Time Seen by Provider: 05/22/18 20:51 History of Present Illness HPI narrative: This is an 88-year-old female with history of hypertension and hyperlipidemia per chart review who presents for evaluation after an unwitnessed fall. The patient fell in her bathroom. She does not know specifically why she fell. She does not recall tripping or slipping. She does not believe that she lost consciousness. Her son found her approximately 10 minutes later and called EMS. She was complaining of some pain in her sacral region. She denies headache, neck pain, chest pain, shortness of breath, nausea , vomiting, dizziness, lightheadedness, abdominal pain. Symptoms are moderate, aggravated by fall. She takes 2 baby aspirin daily per paramedics. No other complaints. Related Data Home Medications Medication Instructions Recorded Confirmed Unable to Obtain Home Meds 05/22/18 05/22/18 Allergies Allergy/AdvReac Type Severity Reaction Status Date / Time clarithromycin Allergy Severe SOB Verified 03/15/18 09:27 doxycycline Allergy Severe SOB Verified 03/15/18 09:27 ibuprofen Allergy Severe SOB Verified 03/15/18 09:27 minocycline Allergy Severe SOB Verified 03/15/18 09:27 penicillin G Allergy Severe SOB Verified 03/15/18 09:27 tigecycline Allergy Severe SOB Verified 03/15/18 09:27 Beef Containing Products Allergy Unknown "CAN'T Verified 03/15/18 09:27 DIGEST IT" Review of Systems ROS: all other systems reviewed are negative PMFSH Social History Social History Substance History: No History of Abuse Second Hand Smoke Exposure: No Smoking Status: Never smoker Tobacco Type: Cigarettes How Often Do You Have a Drink Containing Alcohol: Never Recent Travel in [facility] within the Last 8 Weeks: No Recent Out of Country Travel within the Last 8 Weeks: No Exam Narrative Exam Narrative: GENERAL: Pleasant well-developed well-nourished female no acute distress cervical collar in place. The patient was logrolled off the backboard using spinal precautions. SKIN: Warm and dry. HEAD: Atraumatic. Normocephalic. EYES: Pupils equal and round. No scleral icterus. No injection or drainage. ENT: No nasal bleeding or discharge. Mucous membranes pink and moist. NECK: Trachea midline. No JVD. CARDIOVASCULAR: Regular rate and rhythm. No murmur appreciated. RESPIRATORY: No accessory muscle use. Clear to auscultation. Breath sounds equal bilaterally. GASTROINTESTINAL: Abdomen soft, non-tender, nondistended. Hepatic and splenic margins not palpable. Brown/black stool is noted which is Hemoccult positive. MUSCULOSKELETAL: No obvious deformities. There is some tenderness to palpation to the sacrum. There is no tenderness to palpation along the cervical thoracic and lumbar midline spine. NEUROLOGICAL: Awake and alert. No obvious cranial nerve deficits. Motor grossly within normal limits. Normal speech. Procedures Hemaprompt Stool Procedural Steps Taken: specimen placed in appropriate test area, developer placed on specimen and control areas and controls appropriately positive and negative Hemaprompt Stool Result: positive Course Initial Documented Vital Signs Temperature 97.9 F 05/22/18 22:01 Pulse Rate 89 05/22/18 22:01 Respiratory Rate 16 05/22/18 22:01 Blood Pressure 137/84 05/22/18 22:01 Pulse Oximetry 98 05/22/18 22:01 Last Documented Vital Signs Temperature 98.6 F 05/23/18 12:00 Pulse Rate 84 05/23/18 12:00 Respiratory Rate 16 05/23/18 12:00 Blood Pressure 123/66 05/23/18 12:00 Pulse Oximetry 94 L 05/23/18 12:00 Medical Decision Making MDM Narrative Medical decision making narrative: The patient was placed on ECG monitoring pulse oximetry. Twelve-lead EKG ordered. Lab work, chest x-ray, CT brain and cervical spine, x-ray of the sacrum and pelvis ordered. The patient has brown/ black stool which is Hemoccult positive on examination. Protonix administered. Imaging studies reveal no acute abnormality's. CT the brain reveals ventriculomegaly which is stable compared to previous imaging studies in March. The cervical collar was removed. Patient will be admitted for further evaluation of GI bleed. Medical Screen Exam Complete: Yes Emergency Medical Condition: Yes Differential Diagnosis Differential Diagnosis: Sacral fracture, upper GI bleed, syncope, mechanical fall Lab Data Result diagrams: 05/23/18 11:13 05/23/18 06:05 Lab Results 05/22/18 05/22/18 05/22/18 Range/Units 21:55 21:55 21:55 WBC 12.8 H (4.0-11.0) th/mm3 RBC 4.54 (4.00-5.30) mil/mm3 Hgb 13.6 (11.6-15.3) gm/dL Hct 40.7 (35.0-46.0) % MCV 89.5 (80.0-100.0) fL MCH 29.9 (27.0-34.0) pg MCHC 33.4 (32.0-36.0) % RDW 14.1 (11.6-17.2) % Plt Count 281 (150-450) th/mm3 MPV 7.7 (7.0-11.0) fL Neut % (Auto) 78.9 H (16.0-70.0) % Lymph % (Auto) 11.7 (9.0-44.0) % Thurston % (Auto) 7.6 (0.0-8.0) % Eos % (Auto) 1.1 (0.0-4.0) % Baso % (Auto) 0.7 (0.0-2.0) % Neut # (Auto) 10.1 H (1.8-7.7) th/mm3 Lymph # (Auto) 1.5 (1.0-4.8) th/mm3 Thurston # (Auto) 1.0 H (0.0-0.9) th/mm3 Eos # (Auto) 0.1 (0.0-0.4) th/mm3 Baso # (Auto) 0.1 (0.0-0.2) th/mm3 WBC Differential . Differential Comment Auto diff final PT 10.6 (9.8-11.6) sec INR 1.0 Ratio APTT 25.6 (24.3-30.1) sec Sodium 137 (136-145) meq/L Potassium 4.0 (3.5-5.1) meq/L Chloride 101 (98-107) meq/L Carbon Dioxide 24.0 (21.0-32.0) meq/L Anion Gap 12 (5-15) meq/L BUN 21 H (7-18) mg/dL Creatinine 0.66 (0.50-1.00) mg/dL Estimated GFR 85 L (>89) mL/min Random Glucose 93 (74-106) mg/dL Calcium 8.9 (8.5-10.1) mg/dL Magnesium 2.2 (1.5-2.5) mg/dL Total Bilirubin 0.3 (0.2-1.0) mg/dL AST 20 (15-37) U/L ALT 20 (10-53) U/L Alkaline Phosphatase 98 (45-117) U/L Total Creatine Kinase 76 (26-192) U/L Troponin I 0.04 (0.02-0.05) ng/mL Total Protein 7.4 (6.4-8.2) g/dL Albumin 3.4 (3.4-5.0) g/dL Lipase 181 (73-393) U/L Blood Type Blood Type Recheck Antibody Screen 05/22/18 05/23/18 05/23/18 Range/Units 21:55 06:05 06:05 WBC 9.3 (4.0-11.0) th/mm3 RBC 4.32 (4.00-5.30) mil/mm3 Hgb 13.4 (11.6-15.3) gm/dL Hct 38.4 (35.0-46.0) % MCV 88.9 (80.0-100.0) fL MCH 31.0 (27.0-34.0) pg MCHC 34.8 (32.0-36.0) % RDW 13.7 (11.6-17.2) % Plt Count 260 (150-450) th/mm3 MPV 7.9 (7.0-11.0) fL Neut % (Auto) 68.2 (16.0-70.0) % Lymph % (Auto) 17.3 (9.0-44.0) % Thurston % (Auto) 9.9 H (0.0-8.0) % Eos % (Auto) 3.3 (0.0-4.0) % Baso % (Auto) 1.3 (0.0-2.0) % Neut # (Auto) 6.3 (1.8-7.7) th/mm3 Lymph # (Auto) 1.6 (1.0-4.8) th/mm3 Thurston # (Auto) 0.9 (0.0-0.9) th/mm3 Eos # (Auto) 0.3 (0.0-0.4) th/mm3 Baso # (Auto) 0.1 (0.0-0.2) th/mm3 WBC Differential . Differential Comment Auto diff final PT (9.8-11.6) sec INR Ratio APTT (24.3-30.1) sec Sodium 140 (136-145) meq/L Potassium 4.0 (3.5-5.1) meq/L Chloride 105 (98-107) meq/L Carbon Dioxide 28.0 (21.0-32.0) meq/L Anion Gap 7 (5-15) meq/L BUN 17 (7-18) mg/dL Creatinine 0.66 (0.50-1.00) mg/dL Estimated GFR 85 L (>89) mL/min Random Glucose 77 (74-106) mg/dL Calcium 8.7 (8.5-10.1) mg/dL Magnesium (1.5-2.5) mg/dL Total Bilirubin (0.2-1.0) mg/dL AST (15-37) U/L ALT (10-53) U/L Alkaline Phosphatase (45-117) U/L Total Creatine Kinase (26-192) U/L Troponin I (0.02-0.05) ng/mL Total Protein (6.4-8.2) g/dL Albumin (3.4-5.0) g/dL Lipase (73-393) U/L Blood Type O Positive Blood Type Recheck Not needed Antibody Screen Negative 05/23/18 Range/Units 11:13 WBC (4.0-11.0) th/mm3 RBC (4.00-5.30) mil/mm3 Hgb 13.6 (11.6-15.3) gm/dL Hct 41.0 (35.0-46.0) % MCV (80.0-100.0) fL MCH (27.0-34.0) pg MCHC (32.0-36.0) % RDW (11.6-17.2) % Plt Count (150-450) th/mm3 MPV (7.0-11.0) fL Neut % (Auto) (16.0-70.0) % Lymph % (Auto) (9.0-44.0) % Thurston % (Auto) (0.0-8.0) % Eos % (Auto) (0.0-4.0) % Baso % (Auto) (0.0-2.0) % Neut # (Auto) (1.8-7.7) th/mm3 Lymph # (Auto) (1.0-4.8) th/mm3 Thurston # (Auto) (0.0-0.9) th/mm3 Eos # (Auto) (0.0-0.4) th/mm3 Baso # (Auto) (0.0-0.2) th/mm3 WBC Differential Differential Comment PT (9.8-11.6) sec INR Ratio APTT (24.3-30.1) sec Sodium (136-145) meq/L Potassium (3.5-5.1) meq/L Chloride (98-107) meq/L Carbon Dioxide (21.0-32.0) meq/L Anion Gap (5-15) meq/L BUN (7-18) mg/dL Creatinine (0.50-1.00) mg/dL Estimated GFR (>89) mL/min Random Glucose (74-106) mg/dL Calcium (8.5-10.1) mg/dL Magnesium (1.5-2.5) mg/dL Total Bilirubin (0.2-1.0) mg/dL AST (15-37) U/L ALT (10-53) U/L Alkaline Phosphatase (45-117) U/L Total Creatine Kinase (26-192) U/L Troponin I (0.02-0.05) ng/mL Total Protein (6.4-8.2) g/dL Albumin (3.4-5.0) g/dL Lipase (73-393) U/L Blood Type Blood Type Recheck Antibody Screen Imaging Data Radiologist's impression: Cervical Spine CT 05/22/18 20:52 CONCLUSION: 1. No acute fracture. 2. Stable 2 mm anterolisthesis of C4 on C5 presumably secondary to degenerative facet arthrosis. Head CT 05/22/18 20:52 CONCLUSION: 1. No acute intracranial abnormality. 2. Remote left posterior parietal infarct. 3. Prominent cerebral atrophy with diffuse ventriculomegaly that is slightly out of proportion to degree of atrophy but stable from prior exam. Recommend clinical correlation for normal pressure hydrocephalus. 4. Redemonstration of prominent periventricular ischemic white matter demyelination. 5. Left sphenoid sinus mucosal disease. . Lumbar Spine X-Ray 05/22/18 20:52 CONCLUSION: 1. There are multiple stable compression fractures involving T7, T9, T10, T12 and L1. 2. 6 mm anterolisthesis of L4 on L5 and 4 mm anterolisthesis of L5 on S1 presumably secondary to degenerative facet arthrosis. 3. No definite acute fracture. Sacrum and Coccyx X-Ray 05/22/18 20:52 CONCLUSION: 1. Diffuse osseous demineralization with no acute fracture. 2. Incidental findings including bilateral injection granulomata in the buttocks and multiple osseous screws securing a presumed old right femoral neck fracture. Chest X-Ray 05/22/18 20:53 CONCLUSION: 1. Left apical capping. Lungs are otherwise clear. 2. Old fracture deformity of the proximal left humerus. No acute osseous injury. Discharge Plan Discharge Disposition Patient Disposition: 30 Still Patient Discharge Condition Condition: Stable Discharge Details Diagnosis: GI bleed Physicians Team ED Provider: Anahi Wallis ED Midlevel Provider: Floyd Valerio Primary Care Provider: UNKNOWN, Attending Provider: Dali Meyers Other Providers: Amadeo Whalen Status ED Status: Left Department Discharge Information Discharge Date/Time: 05/23/18 01:20
--- NOTE | 2018-05-22 21:26 | XR ---
EXAM DATE: 05/22/2018 8:53 PM EDT AGE/SEX: 88 years / Female INDICATIONS: Chest pain and shortness of breath, post fall. CLINICAL DATA: This is the patient's initial encounter. Patient reports that signs and symptoms have been present for 1 day and indicates a pain score of 4/10. MEDICAL/SURGICAL HISTORY: None. None. COMPARISON: [facility] – [place]ST SINGLE AP, 10/13/2017. . FINDINGS: A single AP view of the chest demonstrates the lungs to be symmetrically aerated with some left apica l capping. The cardiomediastinal contours are unremarkable. Atherosclerotic calcification of the aor tic arch. There appears to be an old fracture deformity of the proximal left humerus.. CONCLUSION: 1. Left apical capping. Lungs are otherwise clear. 2. Old fracture deformity of the proximal left humerus. No acute osseous injury. Electronically signed by: Enrique Valles MD 05/22/2018 9:25 PM EDT
--- NOTE | 2018-05-22 21:28 | XR ---
EXAM DATE: 05/22/2018 8:52 PM EDT AGE/SEX: 88 years / Female INDICATIONS: Pain in tail bone, post fall. CLINICAL DATA: This is the patient's initial encounter. Patient reports that signs and symptoms have been present for 1 day and indicates a pain score of 7/10. MEDICAL/SURGICAL HISTORY: None. . Right hip surgery. COMPARISON: [facility] – [place], PELVIS AP 1V, 03/15/2018. . FINDINGS: Two-view examination of the sacrum and coccyx demonstrates no evidence of fracture or malalignment de spite diffuse osseous demineralization. The sacral ala and foramina appear symmetric and intact. Th e coccyx appears unremarkable. The prevertebral soft tissues are within normal limits. There appear to be multiple bilateral injection granulomata in the buttocks. Multiple osseous screws secure a presumed old right femoral neck fracture. Dense atherosclerotic calcification of the regiona l vasculature. CONCLUSION: 1. Diffuse osseous demineralization with no acute fracture. 2. Incidental findings including bilateral injection granulomata in the buttocks and multiple osseou s screws securing a presumed old right femoral neck fracture. Electronically signed by: Enrique Valles MD 05/22/2018 9:27 PM EDT
--- NOTE | 2018-05-22 21:31 | XR ---
EXAM DATE: 05/22/2018 8:52 PM EDT AGE/SEX: 88 years / Female INDICATIONS: Lower back pain, post fall. CLINICAL DATA: This is the patient's initial encounter. Patient reports that signs and symptoms have been present for 1 day and indicates a pain score of 7/10. MEDICAL/SURGICAL HISTORY: None. None. [place] [facility] [place] 03/16/2018. . FINDINGS: Stable severe compression deformity of T7. Stable moderate compression deformity of T9 and T10. Stabl e moderate to severe compression deformity T12. Mild stable compression deformity of L1 inferior endp late. Remaining vertebral body heights are maintained. There is a 6 mm anterolisthesis of L4 on L5 an d 4 mm anterolisthesis of L5 on S1. Advanced multilevel degenerative spondylosis of the lower lumbar spine. Right hip fixation hardware in place. Sacral arches are grossly intact. Diffuse aortic calcifi cations. Splenic artery calcifications in the left upper quadrant. Soft tissues are otherwise unremar kable. CONCLUSION: 1. There are multiple stable compression fractures involving T7, T9, T10, T12 and L1. 2. 6 mm anterolisthesis of L4 on L5 and 4 mm anterolisthesis of L5 on S1 presumably secondary to deg enerative facet arthrosis. 3. No definite acute fracture. Electronically signed by: Maksim Santos MD 05/22/2018 9:30 PM EDT
--- NOTE | 2018-05-22 22:00 | CT ---
EXAM DATE: 05/22/2018 8:56 PM EDT AGE/SEX: 88 years / Female INDICATIONS: Unwitnessed fall. CLINICAL DATA: This is the patient's initial encounter. Patient reports that signs and symptoms have been present for 1 day and indicates a pain score of 0/10. MEDICAL/SURGICAL HISTORY: Dementia. Hypertension. Atrial fibrillation. None. RADIATION DOSE: 31.17 CTDI (mGy) COMPARISON: [facility] – [place], [place], CT HEAD W/O CONTRAST, 03/15/2018. . TECHNIQUE: CT of the head without contrast. Using automated exposure control and adjustment of the mA and/or kV according to patient size, radiation dose was kept as low as reasonably achievable to ob tain optimal diagnostic quality images. DICOM format image data is available electronically for revi ew and comparison. FINDINGS: Cerebrum: Stable encephalomalacia in the left posterior parietal mid convexities. Prominent diffuse cerebral atrophy. The ventricles are stable in size but remain diffusely prominent. Prominent periven tricular white matter hypodensities. No evidence of midline shift, mass lesion, hemorrhage or acute i nfarction. No extraaxial fluid collections are seen. Posterior Fossa: The cerebellum and brainstem are intact. The 4th ventricle is midline. The cerebe llopontine angle is unremarkable. Extracranial: The visualized portion of the orbits is intact. Mucous retention cyst in the left sphe noid sinus. Skull: The calvaria is intact. No evidence of skull fracture. CONCLUSION: 1. No acute intracranial abnormality. 2. Remote left posterior parietal infarct. 3. Prominent cerebral atrophy with diffuse ventriculomegaly that is slightly out of proportion to de gree of atrophy but stable from prior exam. Recommend clinical correlation for normal pressure hydroc ephalus. 4. Redemonstration of prominent periventricular ischemic white matter demyelination. 5. Left sphenoid sinus mucosal disease. . Electronically signed by: Maksim Santos MD 05/22/2018 9:58 PM EDT
--- NOTE | 2018-05-22 22:02 | CT ---
EXAM DATE: 05/22/2018 8:56 PM EDT AGE/SEX: 88 years / Female INDICATIONS: Unwitnessed fall, neck pain. CLINICAL DATA: This is the patient's initial encounter. Patient reports that signs and symptoms have been present for 1 day and indicates a pain score of 4/10. MEDICAL/SURGICAL HISTORY: Dementia. Hypertension. Atrial fibrillation. None. RADIATION DOSE: 9.59 CTDI (mGy) [place] [facility] [place]/15/2018. . TECHNIQUE: Contiguous axial images were obtained using helical multirow detector technique. The vol umetric data was post-processed with multiplanar reconstruction in oblique axial, sagittal, and coron al planes. Using automated exposure control and adjustment of the mA and/or kV according to patient s ize, radiation dose was kept as low as reasonably achievable to obtain optimal diagnostic quality manasa ges. DICOM format image data is available electronically for review and comparison. FINDINGS: OSSEOUS STRUCTURES: Vertebral body heights are maintained. Osseous structures are intact without evid ence for acute bony fracture. Dens is intact. ALIGNMENT: Subtle, 2 mm anterolisthesis of C4 on C5. This is stable from prior exam. There is a sreedhar l C1-2 relationship. Facets are normally aligned. SOFT TISSUES: There is no significant prevertebral soft tissue hematoma. No significant cervical zoila nopathy or gross mass. The thyroid appears unremarkable. Visualized lung apices again demonstrate pl eural parenchymal scarring in the left lung apex. ADDITIONAL FINDINGS: Multilevel degenerative spondylosis of the lower cervical spine most prominently at C5-6 with multilevel facet arthropathy. Bony central canal is patent. Bony neural foramina are p atent. CONCLUSION: 1. No acute fracture. 2. Stable 2 mm anterolisthesis of C4 on C5 presumably secondary to degenerative facet arthrosis. Electronically signed by: Maksim Santos MD 05/22/2018 10:01 PM EDT
[2018-05-22 22:32] LABS: Baso # (Auto) 0.1 th/mm3 (0.0-0.2); Baso % (Auto) 0.7 % (0.0-2.0); Eos # (Auto) 0.1 th/mm3 (0.0-0.4); Eos % (Auto) 1.1 % (0.0-4.0); Hematocrit 40.7 % (35.0-46.0); Hemoglobin 13.6 gm/dL (11.6-15.3); Lymph # (Auto) 1.5 th/mm3 (1.0-4.8); Lymph % (Auto) 11.7 % (9.0-44.0); Mean Corpuscular HGB Conc 33.4 % (32.0-36.0); Mean Corpuscular Hemoglobin 29.9 pg (27.0-34.0); Mean Corpuscular Volume 89.5 fL (80.0-100.0); Mean Platelet Volume 7.7 fL (7.0-11.0); Mono % (Auto) 7.6 % (0.0-8.0); Neut # (Auto) 10.1 th/mm3 (1.8-7.7); Neut % (Auto) 78.9 % (16.0-70.0); Platelet Count 281 th/mm3 (150-450); Red Blood Count 4.54 mil/mm3 (4.00-5.30); Red Cell Distribution Width 14.1 % (11.6-17.2); White Blood Count 12.8 th/mm3 (4.0-11.0)
[2018-05-22 22:42] LABS: Activated Partial Thrombo Time 25.6 sec (24.3-30.1); Prothrombin Time 10.6 sec (9.8-11.6)
[2018-05-22 22:48] LABS: Albumin 3.4 g/dL (3.4-5.0); Anion Gap 12 meq/L (5-15); Aspartate Aminotransferase 20 U/L (15-37); Blood Urea Nitrogen 21 mg/dL (7-18); Calcium 8.9 mg/dL (8.5-10.1); Chloride 101 meq/L (98-107); Glomerular Filtration Rate 85 mL/min (>89); Glucose,Random 93 mg/dL (74-106); Lipase 181 U/L (73-393); Magnesium 2.2 mg/dL (1.5-2.5); Sodium 137 meq/L (136-145)
[2018-05-22 22:55] LABS: Alanine Aminotransferase 20 U/L (10-53); Alkaline Phosphatase 98 U/L (45-117); Total Protein 7.4 g/dL (6.4-8.2); Troponin I 0.04 ng/mL (0.02-0.05)
[2018-05-22 23:05] LABS: Creatine Kinase 76 U/L (26-192)
--- NOTE | 2018-05-23 01:06 | P.HP ---
History of Present Illness Service: [facility] Primary Care Physician: UNKNOWN History of Present Illness: 88-year-old female with a past medical history significant for glaucoma, NPH, hypertension and hyperlipidemia presents to the emergency department today for evaluation of a fall. The patient reports she suffered a mechanical fall while making her bed. She states she tripped. Denies loss of consciousness or head trauma. Patient's son found her approximately 10 minutes later and called EMS. She was initially complaining of some pain in her sacrum however this has since resolved. She denies chest pain or shortness of breath. No abdominal pain. No nausea/vomiting/diarrhea. No lateralizing signs/symptoms. No fever/ chills. During her evaluation in the emergency department, it was noted that the patient had black, tarry stools. She was Hemoccult positive in the emergency department. When asked, the patient reports she has had at least one other episode of dark, tarry stools. She has a history of GI bleed in the past which she states resolved on its own. She denies any dizziness or lightheadedness. 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 - Medical History Medical History: Medical History (Last Updated 05/23/18 @ 01:04 by Kacy Westfall MD) Dementia Glaucoma of right eye History of hysterectomy Hypercholesterolemia Hypertension Rectal prolapse - Surgical History Surgical History: Surgical History (Last Reviewed 05/23/18 @ 00:52 by Kacy Westfall MD) History of hip surgery - Family History Family History: Family History (Last Reviewed 05/23/18 @ 00:52 by Kacy Westfall MD) Father Parkinson disease - Tobacco History Second Hand Smoke Exposure: No Smoking Status: Never smoker Tobacco Type: Cigarettes - Alcohol History How Often Do You Have a Drink Containing Alcohol: Monthly or less - Substance Use History Substance History: No History of Abuse - Travel History Recent Travel in the [place] Within the Last 8 Weeks: No Recent Travel Out of the Country Within the Last 8 Weeks: No - Immunization History Tetanus Immunization: Unsure Medications and Allergies Active Medications: Active Medications Sodium Chloride (Ns Inj) 1,000 mls @ 75 mls/hr IV.CONT .[id number] VIVIEN Ondansetron HCl (Zofran Inj) 4 mg IV.PUSH Q6H PRN PRN Reason: NAUSEA OR VOMITING Pantoprazole Sodium (Protonix Inj) 40 mg IV.PUSH Q12H VIVIEN Sodium Chloride (Ns Flush) 2 ml IV.FLUSH PRN PRN PRN Reason: FLUSH AFTER USING IV ACCESS Allergies Allergy/AdvReac Type Severity Reaction Status Date / Time clarithromycin Allergy Severe SOB Verified 03/15/18 09:27 doxycycline Allergy Severe SOB Verified 03/15/18 09:27 ibuprofen Allergy Severe SOB Verified 03/15/18 09:27 minocycline Allergy Severe SOB Verified 03/15/18 09:27 penicillin G Allergy Severe SOB Verified 03/15/18 09:27 tigecycline Allergy Severe SOB Verified 03/15/18 09:27 Beef Containing Products Allergy Unknown "CAN'T Verified 03/15/18 09:27 DIGEST IT" Home Medications Medication Instructions Recorded Confirmed Type Unable to Obtain Home Meds 05/22/18 05/22/18 History Exam Vital signs: Vital Signs 05/22/18 22:01 Temperature 97.9 F Pulse Rate 89 Respiratory Rate 16 Blood Pressure 137/84 Pulse Oximetry 98 Intake & Output 05/22/18 05/22/18 05/23/18 06:59 18:59 06:59 Weight 50 kg Narrative: Gen.: No acute distress Head: Normocephalic. Atraumatic. EENT: Pupils equal round and reactive to light. Nose without drainage. Airway intact. Throat without injection. Cardiovascular: Regular rate and rhythm. No murmurs, rubs or gallops. Respiratory: Lungs clear to auscultation bilaterally. No wheezes or rhonchi. Abdomen: Soft, nontender, nondistended. No peritoneal signs. Musculoskeletal: No gross deformities. No edema. Skin: No obvious rashes or erythema. Neuro: Sensory and motor grossly intact. Cranial nerves II through XII grossly intact. Results - Labs CBC & Chem 7: 05/22/18 21:55 05/22/18 21:55 Labs: Laboratory Results - last 24 hr 05/22/18 05/22/18 05/22/18 21:55 21:55 21:55 WBC 12.8 H RBC 4.54 Hgb 13.6 Hct 40.7 MCV 89.5 MCH 29.9 MCHC 33.4 RDW 14.1 Plt Count 281 MPV 7.7 Neut % (Auto) 78.9 H Lymph % (Auto) 11.7 [place] % (Auto) 7.6 Eos % (Auto) 1.1 Baso % (Auto) 0.7 Neut # (Auto) 10.1 H Lymph # (Auto) 1.5 [place] # (Auto) 1.0 H Eos # (Auto) 0.1 Baso # (Auto) 0.1 WBC Differential . Differential Comment Auto diff final PT 10.6 INR 1.0 APTT 25.6 Sodium 137 Potassium 4.0 Chloride 101 Carbon Dioxide 24.0 Anion Gap 12 BUN 21 H Creatinine 0.66 Estimated GFR 85 L Random Glucose 93 Calcium 8.9 Magnesium 2.2 Total Bilirubin 0.3 AST 20 ALT 20 Alkaline Phosphatase 98 Total Creatine Kinase 76 Troponin I 0.04 Total Protein 7.4 Albumin 3.4 Lipase 181 Blood Type Blood Type Recheck Antibody Screen 05/22/18 21:55 WBC RBC Hgb Hct MCV MCH MCHC RDW Plt Count MPV Neut % (Auto) Lymph % (Auto) [place] % (Auto) Eos % (Auto) Baso % (Auto) Neut # (Auto) Lymph # (Auto) [place] # (Auto) Eos # (Auto) Baso # (Auto) WBC Differential Differential Comment PT INR APTT Sodium Potassium Chloride Carbon Dioxide Anion Gap BUN Creatinine Estimated GFR Random Glucose Calcium Magnesium Total Bilirubin AST ALT Alkaline Phosphatase Total Creatine Kinase Troponin I Total Protein Albumin Lipase Blood Type O Positive Blood Type Recheck Not needed Antibody Screen Negative - Imaging Impressions Cervical Spine CT 05/22/18 20:52 CONCLUSION: 1. No acute fracture. 2. Stable 2 mm anterolisthesis of C4 on C5 presumably secondary to degenerative facet arthrosis. Head CT 05/22/18 20:52 CONCLUSION: 1. No acute intracranial abnormality. 2. Remote left posterior parietal infarct. 3. Prominent cerebral atrophy with diffuse ventriculomegaly that is slightly out of proportion to degree of atrophy but stable from prior exam. Recommend clinical correlation for normal pressure hydrocephalus. 4. Redemonstration of prominent periventricular ischemic white matter demyelination. 5. Left sphenoid sinus mucosal disease. . Lumbar Spine X-Ray 05/22/18 20:52 CONCLUSION: 1. There are multiple stable compression fractures involving T7, T9, T10, T12 and L1. 2. 6 mm anterolisthesis of L4 on L5 and 4 mm anterolisthesis of L5 on S1 presumably secondary to degenerative facet arthrosis. 3. No definite acute fracture. Sacrum and Coccyx X-Ray 05/22/18 20:52 CONCLUSION: 1. Diffuse osseous demineralization with no acute fracture. 2. Incidental findings including bilateral injection granulomata in the buttocks and multiple osseous screws securing a presumed old right femoral neck fracture. Chest X-Ray 05/22/18 20:53 CONCLUSION: 1. Left apical capping. Lungs are otherwise clear. 2. Old fracture deformity of the proximal left humerus. No acute osseous injury. Caprini VTE Risk Assessment Caprini VTE Risk Assessment: Moderate/High Risk (score >= 2) Caprini Risk Assessment Model: Point Value = 1 Point Value = 2 Point Value = 3 Point Value = 5 Age 41-60 Minor surgery BMI > 25 kg/m2 Swollen legs Varicose veins or History of unexplained or recurrent spontaneous Oral contraceptives or hormone replacement Sepsis (< 1 month) Serious lung disease, including pneumonia (< 1 month) Abnormal pulmonary function Acute myocardial infarction Congestive heart failure (< 1 month) History of inflammatory bowel disease Medical patient at bed rest Age 61-74 Arthroscopic surgery Major open surgery (> 45 min) Laparoscopic surgery (> 45 min) Malignancy Confined to bed (> 72 hours) Immobilizing plaster cast Central venous access Age >= 75 History of VTE Family history of VTE Factor V Leiden Prothrombin [id number] Lupus anticoagulant Anticardiolipin antibodies Elevated serum homocysteine Heparin-induced thrombocytopenia Other congenital or acquired thrombophilia Stroke (< 1 month) Elective arthroplasty Hip, pelvis, or leg fracture Acute spinal cord injury (< 1 month) Prophylaxis Regimen: Total Risk Factor Score Risk Level Prophylaxis Regimen 0-1 Low Early ambulation 2 Moderate Order ONE of the following: *Sequential Compression Device (SCD) *Heparin 5000 units SQ BID 3-4 Higher Order ONE of the following medications: *Heparin 5000 units SQ TID *Enoxaparin/Lovenox 40 mg SQ daily (WT < 150 kg, CrCl > 30 mL/min) *Enoxaparin/Lovenox 30 mg SQ daily (WT < 150 kg, CrCl > 10-29 mL/min) *Enoxaparin/Lovenox 30 mg SQ BID (WT < 150 kg, CrCl > 30 mL/min) AND/OR *Sequential Compression Device (SCD) 5 or more Highest Order ONE of the following medications: *Heparin 5000 units SQ TID (Preferred with Epidurals) *Enoxaparin/Lovenox 40 mg SQ daily (WT < 150 kg, CrCl > 30 mL/min) *Enoxaparin/Lovenox 30 mg SQ daily (WT < 150 kg, CrCl > 10-29 mL/min) *Enoxaparin/Lovenox 30 mg SQ BID (WT < 150 kg, CrCl > 30 mL/min) AND *Sequential Compression Device (SCD) Assessment and Plan - Plan Assessment/plan: 1. GI bleed Hemoccult positive in the ED with dark, tarry stools IV Protonix Serial H&H Gastroenterology consulted, appreciate assistance 2. Multiple medical comorbidities Records review reveals patient has a history of hypertension, hyperlipidemia and glaucoma Medications unknown Resume home medications once determined 3. Fall Head CT, cervical spine CT, lumbar spine x-ray and sacral x-ray negative for acute process 4. Multiple compression fractures Lumbar spine x-ray significant for stable compression fractures involving T7, T9 , T10, T12 and L1 Patient previously evaluated (03/2016) for her L1 compression fracture and no surgical intervention was deemed needed at that time Continue PT/OT 5. NPH Patient previously diagnosed with NPH in March 2018 It was determined that the patient would likely not benefit from a WATCH AND [employer]OCK [employer] AND REPA[employer]ER shunt FEN NPO NS at 75 cc/hr Electrolytes: Monitor and replete as needed Holding pharmacologic anticoagulation secondary to GI bleed
[2018-05-23 07:31] LABS: Baso # (Auto) 0.1 th/mm3 (0.0-0.2); Baso % (Auto) 1.3 % (0.0-2.0); Eos # (Auto) 0.3 th/mm3 (0.0-0.4); Eos % (Auto) 3.3 % (0.0-4.0); Hematocrit 38.4 % (35.0-46.0); Hemoglobin 13.4 gm/dL (11.6-15.3); Lymph # (Auto) 1.6 th/mm3 (1.0-4.8); Lymph % (Auto) 17.3 % (9.0-44.0); Mean Corpuscular HGB Conc 34.8 % (32.0-36.0); Mean Corpuscular Volume 88.9 fL (80.0-100.0); Mean Platelet Volume 7.9 fL (7.0-11.0); Mono # (Auto) 0.9 th/mm3 (0.0-0.9); Mono % (Auto) 9.9 % (0.0-8.0); Neut # (Auto) 6.3 th/mm3 (1.8-7.7); Neut % (Auto) 68.2 % (16.0-70.0); Platelet Count 260 th/mm3 (150-450); Red Blood Count 4.32 mil/mm3 (4.00-5.30); Red Cell Distribution Width 13.7 % (11.6-17.2); White Blood Count 9.3 th/mm3 (4.0-11.0)
[2018-05-23] MEDS: Sod Chloride 0.9% Inj 1,000 ML IV.CONT SCH ×2 (07:47→17:12)
[2018-05-23 07:56] LABS: Calcium 8.7 mg/dL (8.5-10.1)
--- NOTE | 2018-05-23 09:43 | P.PNADD ---
Addendum to Inpatient Note Reason for Addendum: Additional Documentation (I spoke with patient's son and he is requesting for her to go to [facility] at discharge (rehab with potential change to [facility] when indicated). [place])
--- NOTE | 2018-05-23 10:54 | P.CONGI ---
History of Present Illness Consult date: 05/23/18 Consult reason: Hemoccult positive stools Chief complaint: Upper GI Bleed History of Present Illness: This patient is an 89-year-old female with a past medical history of glaucoma, hypertension, lipidemia and normal pressure hydrocephalus. Patient presented to the emergency room on 05/22/2018 due to sustaining a fall at home. Patient states that she fell while she was making her bed states that she tripped. Patient denied any loss of consciousness or injury to her head. Patient states that she has not had any weakness, dizziness, lightheadedness, or fatigue. Upon arrival to the ER it was noted that the patient had dark tarry stools. Patient states that she noticed same when she arrived to the ER and denies previously. Of note, patient states that she takes aspirin 81 mg 2 tabs twice daily. She reports EGD/colonoscopy done "many years ago", and the results were normal. Patient reports family history of gastric ulcers-her maternal aunt. 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 Patient also denies tobacco use. Denies abdominal pain, nausea or vomiting, constipation or diarrhea. Patient states that her stools are normally soft this is the first time she has noted dark stools. She denies any obvious bleeding and states that she normally moves her bowels twice daily. Patient denies any difficulty swallowing or heartburn, denies any symptoms of acid reflux. I discussed the need for an upper endoscopy at this time and patient declines. "I just want to stop taking the aspirin and see what happens". I advised patient that we would be following her blood count and monitoring her for bleeding, she verbalized understanding and agreement. <Maryana David - Last Filed: 05/23/18 10:39> Review of Systems All other systems reviewed negative except as stated in HPI <Maryana David - Last Filed: 05/23/18 10:39> PMFSH - History History Provided By: Patient - Medical History Medical History: Medical History (Last Reviewed 05/23/18 @ 07:51 by Kirill Dietz) Dementia Glaucoma of right eye History of hysterectomy Hypercholesterolemia Hypertension Rectal prolapse - Surgical History Surgical History: Surgical History (Last Reviewed 05/23/18 @ 07:51 by Kirill Dietz) History of hip surgery - Family History Family History: Family History (Last Reviewed 05/23/18 @ 00:52 by Kacy Westfall MD) Father Parkinson disease - Tobacco History Second Hand Smoke Exposure: No Smoking Status: Never smoker Tobacco Type: Cigarettes - Alcohol History How Often Do You Have a Drink Containing Alcohol: Never - Substance Use History Substance History: No History of Abuse - Travel History Recent Travel in the [place] Within the Last 8 Weeks: No Recent Travel Out of the Country Within the Last 8 Weeks: No - Immunization History Tetanus Immunization: Unsure <Maryana David - Last Filed: 05/23/18 10:39> - Medical History Medical History: Medical History (Last Reviewed 05/23/18 @ 07:51 by Kirill Dietz) Dementia Glaucoma of right eye History of hysterectomy Hypercholesterolemia Hypertension Rectal prolapse - Surgical History Surgical History: Surgical History (Last Reviewed 05/23/18 @ 07:51 by Kirill Dietz) History of hip surgery - Family History Family History: Family History (Last Reviewed 05/23/18 @ 00:52 by Kacy Westfall MD) Father Parkinson disease <Amadeo Whalen - Last Filed: 05/23/18 23:37> Medications and Allergies Active Medications: Active Medications Sodium Chloride (Ns Inj) 1,000 mls @ 75 mls/hr IV.CONT .[id number] [facility] Last Admin: 05/23/18 07:47 Dose: 75 mls/hr Ondansetron HCl (Zofran Inj) 4 mg IV.PUSH Q6H PRN PRN Reason: NAUSEA OR VOMITING Pantoprazole Sodium (Protonix Inj) 40 mg IV.PUSH Q12H [facility] Sodium Chloride (Ns Flush) 2 ml IV.FLUSH PRN PRN PRN Reason: FLUSH AFTER USING IV ACCESS <Maryana David - Last Filed: 05/23/18 10:39> Active Medications: Active Medications Sodium Chloride (Ns Inj) 1,000 mls @ 75 mls/hr IV.CONT .[id number] [facility] Last Admin: 05/23/18 17:12 Dose: 75 mls/hr Ondansetron HCl (Zofran Inj) 4 mg IV.PUSH Q6H PRN PRN Reason: NAUSEA OR VOMITING Pantoprazole Sodium (Protonix Inj) 40 mg IV.PUSH Q12H [facility] Last Admin: 05/23/18 21:07 Dose: 40 mg Sodium Chloride (Ns Flush) 2 ml IV.FLUSH PRN PRN PRN Reason: FLUSH AFTER USING IV ACCESS <Amadeo Whalen - Last Filed: 05/23/18 23:37> Allergies Allergy/AdvReac Type Severity Reaction Status Date / Time clarithromycin Allergy Severe SOB Verified 03/15/18 09:27 doxycycline Allergy Severe SOB Verified 03/15/18 09:27 ibuprofen Allergy Severe SOB Verified 03/15/18 09:27 minocycline Allergy Severe SOB Verified 03/15/18 09:27 penicillin G Allergy Severe SOB Verified 03/15/18 09:27 tigecycline Allergy Severe SOB Verified 03/15/18 09:27 Beef Containing Products Allergy Unknown "CAN'T Verified 03/15/18 09:27 DIGEST IT" Home Medications Medication Instructions Recorded Confirmed Type Unable to Obtain Home Meds 05/22/18 05/22/18 History Exam Vital signs: Vital Signs 05/22/18 22:01 05/23/18 04:00 05/23/18 04:41 Temperature 97.9 F 97.8 F Pulse Rate 89 74 80 Respiratory Rate 16 15 Blood Pressure 137/84 100/61 Pulse Oximetry 98 92 L 05/23/18 08:00 Temperature 97.8 F Pulse Rate 84 Respiratory Rate 16 Blood Pressure 130/66 Pulse Oximetry 94 L Intake & Output 05/22/18 05/23/18 05/23/18 18:59 06:59 18:59 Weight 37.7 kg Other: Date of Last Bowel Movement 05/22/18 Weight On Admission 37.7 kg - Constitutional no acute distress - Routine HEENT Exam Head: Present: normocephalic - Routine Neck Exam Present: supple - Routine Respiratory Exam Present: CTA bilaterally. Absent: accessory muscle use - Routine Cardiovascular Exam Present: RRR - Routine Abdominal Exam Present: soft, normoactive bowel sounds. Absent: tenderness, distended, guarding, firm - Routine Extremities Exam Present: full ROM, pulses intact. Absent: edema - Routine Skin Exam Present: dry, warm. Absent: pallor - Routine Neurological Exam Present: alert, oriented X3 <Dvaid,Maryana - Last Filed: 05/23/18 10:39> Vital signs: Vital Signs 05/23/18 04:00 05/23/18 04:41 05/23/18 08:00 Temperature 97.8 F 97.8 F Pulse Rate 74 80 84 Respiratory Rate 15 16 Blood Pressure 100/61 130/66 Pulse Oximetry 92 L 94 L 05/23/18 08:05 05/23/18 12:00 05/23/18 16:00 Temperature 98.6 F 98.5 F Pulse Rate 86 84 84 Respiratory Rate 16 18 Blood Pressure 123/66 148/86 H Pulse Oximetry 94 L 92 L 05/23/18 20:00 Temperature 98.2 F Pulse Rate 86 Respiratory Rate 16 Blood Pressure 146/87 H Pulse Oximetry 93 L Intake & Output 05/23/18 05/23/18 05/24/18 06:59 18:59 06:59 Intake Total 1000 / 1000 Output Total 750 / 750 Balance 250 / 250 Weight 37.7 kg Intake: IV 1000 / 1000 NS Inj 1,000 ML @ 75 mls/hr IV. 1000 / 1000 CONT .[id number] VIVIEN Rx#:[id number] Output: Urine 750 / 750 Other: # Voids 2 Date of Last Bowel Movement 05/22/18 Weight On Admission 37.7 kg <Amadoe Whalen E - Last Filed: 05/23/18 23:37> Results - Labs CBC & Chem 7: 05/23/18 06:05 05/23/18 06:05 Labs: Laboratory Results - last 24 hr 05/22/18 05/22/18 05/22/18 21:55 21:55 21:55 WBC 12.8 H RBC 4.54 Hgb 13.6 Hct 40.7 MCV 89.5 MCH 29.9 MCHC 33.4 RDW 14.1 Plt Count 281 MPV 7.7 Neut % (Auto) 78.9 H Lymph % (Auto) 11.7 [place] % (Auto) 7.6 Eos % (Auto) 1.1 Baso % (Auto) 0.7 Neut # (Auto) 10.1 H Lymph # (Auto) 1.5 [place] # (Auto) 1.0 H Eos # (Auto) 0.1 Baso # (Auto) 0.1 WBC Differential . Differential Comment Auto diff final PT 10.6 INR 1.0 APTT 25.6 Sodium 137 Potassium 4.0 Chloride 101 Carbon Dioxide 24.0 Anion Gap 12 BUN 21 H Creatinine 0.66 Estimated GFR 85 L Random Glucose 93 Calcium 8.9 Magnesium 2.2 Total Bilirubin 0.3 AST 20 ALT 20 Alkaline Phosphatase 98 Total Creatine Kinase 76 Troponin I 0.04 Total Protein 7.4 Albumin 3.4 Lipase 181 Blood Type Blood Type Recheck Antibody Screen 05/22/18 05/23/18 05/23/18 21:55 06:05 06:05 WBC 9.3 RBC 4.32 Hgb 13.4 Hct 38.4 MCV 88.9 MCH 31.0 MCHC 34.8 RDW 13.7 Plt Count 260 MPV 7.9 Neut % (Auto) 68.2 Lymph % (Auto) 17.3 [place] % (Auto) 9.9 H Eos % (Auto) 3.3 Baso % (Auto) 1.3 Neut # (Auto) 6.3 Lymph # (Auto) 1.6 [place] # (Auto) 0.9 Eos # (Auto) 0.3 Baso # (Auto) 0.1 WBC Differential . Differential Comment Auto diff final PT INR APTT Sodium 140 Potassium 4.0 Chloride 105 Carbon Dioxide 28.0 Anion Gap 7 BUN 17 Creatinine 0.66 Estimated GFR 85 L Random Glucose 77 Calcium 8.7 Magnesium Total Bilirubin AST ALT Alkaline Phosphatase Total Creatine Kinase Troponin I Total Protein Albumin Lipase Blood Type O Positive Blood Type Recheck Not needed Antibody Screen Negative - Imaging Impressions Cervical Spine CT 05/22/18 20:52 CONCLUSION: 1. No acute fracture. 2. Stable 2 mm anterolisthesis of C4 on C5 presumably secondary to degenerative facet arthrosis. Head CT 05/22/18 20:52 CONCLUSION: 1. No acute intracranial abnormality. 2. Remote left posterior parietal infarct. 3. Prominent cerebral atrophy with diffuse ventriculomegaly that is slightly out of proportion to degree of atrophy but stable from prior exam. Recommend clinical correlation for normal pressure hydrocephalus. 4. Redemonstration of prominent periventricular ischemic white matter demyelination. 5. Left sphenoid sinus mucosal disease. . Lumbar Spine X-Ray 05/22/18 20:52 CONCLUSION: 1. There are multiple stable compression fractures involving T7, T9, T10, T12 and L1. 2. 6 mm anterolisthesis of L4 on L5 and 4 mm anterolisthesis of L5 on S1 presumably secondary to degenerative facet arthrosis. 3. No definite acute fracture. Sacrum and Coccyx X-Ray 05/22/18 20:52 CONCLUSION: 1. Diffuse osseous demineralization with no acute fracture. 2. Incidental findings including bilateral injection granulomata in the buttocks and multiple osseous screws securing a presumed old right femoral neck fracture. Chest X-Ray 05/22/18 20:53 CONCLUSION: 1. Left apical capping. Lungs are otherwise clear. 2. Old fracture deformity of the proximal left humerus. No acute osseous injury. <Maryana David - Last Filed: 05/23/18 10:39> - Labs CBC & Chem 7: 05/23/18 22:22 05/23/18 06:05 Labs: Laboratory Results - last 24 hr 05/23/18 05/23/18 05/23/18 06:05 06:05 11:13 WBC 9.3 RBC 4.32 Hgb 13.4 13.6 Hct 38.4 41.0 MCV 88.9 MCH 31.0 MCHC 34.8 RDW 13.7 Plt Count 260 MPV 7.9 Neut % (Auto) 68.2 Lymph % (Auto) 17.3 [place] % (Auto) 9.9 H Eos % (Auto) 3.3 Baso % (Auto) 1.3 Neut # (Auto) 6.3 Lymph # (Auto) 1.6 [place] # (Auto) 0.9 Eos # (Auto) 0.3 Baso # (Auto) 0.1 WBC Differential . Differential Comment Auto diff final Sodium 140 Potassium 4.0 Chloride 105 Carbon Dioxide 28.0 Anion Gap 7 BUN 17 Creatinine 0.66 Estimated GFR 85 L Random Glucose 77 Calcium 8.7 05/23/18 05/23/18 15:54 22:22 WBC RBC Hgb 13.4 13.4 Hct 38.6 38.8 MCV MCH MCHC RDW Plt Count MPV Neut % (Auto) Lymph % (Auto) [place] % (Auto) Eos % (Auto) Baso % (Auto) Neut # (Auto) Lymph # (Auto) [place] # (Auto) Eos # (Auto) Baso # (Auto) WBC Differential Differential Comment Sodium Potassium Chloride Carbon Dioxide Anion Gap BUN Creatinine Estimated GFR Random Glucose Calcium <Amadeo Whalen - Last Filed: 05/23/18 23:37> Assessment and Plan (1) GI bleed Status: Acute Code(s): K92.2 - Gastrointestinal hemorrhage, unspecified - Plan This patient is an 89-year-old female with a past medical history of glaucoma, hypertension, lipidemia and normal pressure hydrocephalus. Patient presented to the emergency room on 05/22/2018 due to sustaining a fall at home. Patient states that she fell while she was making her bed states that she tripped. Patient denied any loss of consciousness or injury to her head. Patient states that she has not had any weakness, dizziness, lightheadedness, or fatigue. Upon arrival to the ER it was noted that the patient had dark tarry stools. Patient states that she noticed same when she arrived to the ER and denies previously. Of note, patient states that she takes aspirin 81 mg 2 tabs twice daily. She reports EGD/colonoscopy done "many years ago", and the results were normal. Patient reports family history of gastric ulcers-her maternal aunt. 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 Patient also denies tobacco use. Denies abdominal pain, nausea or vomiting, constipation or diarrhea. Patient states that her stools are normally soft this is the first time she has noted dark stools. She denies any obvious bleeding and states that she normally moves her bowels twice daily. Patient denies any difficulty swallowing or heartburn, denies any symptoms of acid reflux. I discussed the need for an upper endoscopy at this time and patient declines. "I just want to stop taking the aspirin and see what happens". I advised patient that we would be following her blood count and monitoring her for bleeding, she verbalized understanding and agreement. GI bleed Stools Hemoccult positive, dark and tarry stools upon presentation to ER with history of GI bleed. Hemoglobin 13.4 hematocrit 38.4 INR 1.0 total bili 0.3 AST 20 ALT 20 alk phos 98. Of note, patient endorsing that she takes 162 mg of aspirin twice daily. Patient declining endoscopy at this time and states "I just want to wait, stop the aspirin and see what happens." Patient advised that we will be monitoring her labs and monitoring her for bleeding. Patient verbalized understanding and agreement. Plan -Clear liquids -Monitor for bleeding -Avoid NSAIDs and aspirin -Continue PPI -Monitor labs -Supportive care -Further recommendations to follow based on patient's status and findings This patient has been seen by myself and Dr. Whalen and this note is written on his behalf <Maryana David - Last Filed: 05/23/18 10:39> (1) GI bleed Status: Acute Code(s): K92.2 - Gastrointestinal hemorrhage, unspecified - Plan Patient seen and examined Agree with above history and physical Continue with current supportive care Monitor labs <Amadeo Whalen - Last Filed: 05/23/18 23:37>
[2018-05-23 11:30] LABS: Hemoglobin 13.6 gm/dL (11.6-15.3)
[2018-05-23] MEDS: Pantoprazole Inj 40 MG Vial IV.PUSH SCH ×2 (12:28→21:07)
[2018-05-23 16:24] LABS: Hematocrit 38.6 % (35.0-46.0); Hemoglobin 13.4 gm/dL (11.6-15.3)
[2018-05-23 22:56] LABS: Hematocrit 38.8 % (35.0-46.0); Hemoglobin 13.4 gm/dL (11.6-15.3)
[2018-05-24] MEDS: Sod Chloride 0.9% Inj 1,000 ML IV.CONT SCH ×3 (04:21→17:11)
[2018-05-24 05:54] LABS: Baso % (Auto) 0.3 % (0.0-2.0); Eos # (Auto) 0.1 th/mm3 (0.0-0.4); Eos % (Auto) 1.5 % (0.0-4.0); Hematocrit 42.9 % (35.0-46.0); Hemoglobin 14.2 gm/dL (11.6-15.3); Lymph # (Auto) 1.3 th/mm3 (1.0-4.8); Lymph % (Auto) 15.2 % (9.0-44.0); Mean Corpuscular HGB Conc 33.1 % (32.0-36.0); Mean Corpuscular Hemoglobin 28.2 pg (27.0-34.0); Mean Corpuscular Volume 85.3 fL (80.0-100.0); Mean Platelet Volume 8.6 fL (7.0-11.0); Mono # (Auto) 0.7 th/mm3 (0.0-0.9); Neut # (Auto) 6.5 th/mm3 (1.8-7.7); Platelet Count 130 th/mm3 (150-450); Red Blood Count 5.03 mil/mm3 (4.00-5.30); Red Cell Distribution Width 14.1 % (11.6-17.2); White Blood Count 8.6 th/mm3 (4.0-11.0)
--- NOTE | 2018-05-24 07:19 | P.PN ---
Subjective Interval history: Follow-up on patient with mechanical fall at home, black, tarry stools. Patient seen and examined. Patient denies any further bowel movements since admission. She is tolerating clear liquid diet. Patient was evaluated by GI but declined endoscopy. She denies any acute medical complaints. She is wanting to be discharged back to home. Discussed with nursing staff, no adverse events noted. Physical Exam Vital signs: Vital Signs 05/23/18 08:00 05/23/18 08:05 05/23/18 12:00 Temperature 97.8 F 98.6 F Pulse Rate 84 86 84 Respiratory Rate 16 16 Blood Pressure 130/66 123/66 Pulse Oximetry 94 L 94 L 05/23/18 16:00 05/23/18 20:00 05/24/18 00:00 Temperature 98.5 F 98.2 F 97.7 F Pulse Rate 84 83 89 Respiratory Rate 18 16 17 Blood Pressure 148/86 H 146/87 H 149/89 H Pulse Oximetry 92 L 93 L 94 L 05/24/18 04:00 Temperature 98.5 F Pulse Rate 90 Respiratory Rate 17 Blood Pressure 145/81 H Pulse Oximetry 93 L Intake & Output 05/23/18 05/24/18 05/24/18 18:59 06:59 18:59 Intake Total 1000 / 1000 1240 / 1240 Output Total 750 / 750 1200 / 1200 Balance 250 / 250 40 / 40 Intake: IV 1000 / 1000 1000 / 1000 NS Inj 1,000 ML @ 75 mls/hr IV. 1000 / 1000 1000 / 1000 CONT .[id number] [facility] Rx#:[id number] Oral 240 / 240 Output: Urine 750 / 750 Urine Amount (Catheter) 1200 / 1200 Female External 1200 / 1200 Other: # Voids 2 Date of Last Bowel Movement 05/22/18 Narrative: GENERAL: Thin elderly female patient in no acute distress, awake and alert. Appears comfortable. SKIN: Warm and dry. No rash. HEENT: Atraumatic. Normocephalic. Pupils equal and round. No scleral icterus. No injection or drainage. No nasal bleeding or discharge. Mucous membranes pink and moist. NECK: Trachea midline. CARDIOVASCULAR: Regular rate and rhythm. RESPIRATORY: No accessory muscle use. Clear to auscultation. Breath sounds equal bilaterally. GASTROINTESTINAL: Abdomen soft, non-tender, nondistended. +BS. MUSCULOSKELETAL: Extremities without clubbing, cyanosis, or edema. No obvious deformities. NEUROLOGICAL: Awake and alert. No obvious cranial nerve deficits. Able to move all extremities spontaneously. Normal speech. PSYCHIATRIC: Calm and cooperative. - Urinary Catheter Management Female External Cath placed during this visit: yes Reason for continuing: Not indwelling catheter Insertion date: 05/24/18 Insertion time: 04:30 Results - Labs CBC & Chem 7: 05/24/18 05:15 05/23/18 06:05 Laboratory Results - last 24 hr 05/23/18 05/23/18 05/23/18 06:05 06:05 11:13 WBC 9.3 RBC 4.32 Hgb 13.4 13.6 Hct 38.4 41.0 MCV 88.9 MCH 31.0 MCHC 34.8 RDW 13.7 Plt Count 260 MPV 7.9 Neut % (Auto) 68.2 Lymph % (Auto) 17.3 [place] % (Auto) 9.9 H Eos % (Auto) 3.3 Baso % (Auto) 1.3 Neut # (Auto) 6.3 Lymph # (Auto) 1.6 [place] # (Auto) 0.9 Eos # (Auto) 0.3 Baso # (Auto) 0.1 WBC Differential . Differential Comment Auto diff final Sodium 140 Potassium 4.0 Chloride 105 Carbon Dioxide 28.0 Anion Gap 7 BUN 17 Creatinine 0.66 Estimated GFR 85 L Random Glucose 77 Calcium 8.7 05/23/18 05/23/18 05/24/18 15:54 22:22 05:15 WBC 8.6 RBC 5.03 Hgb 13.4 13.4 14.2 Hct 38.6 38.8 42.9 MCV 85.3 D MCH 28.2 MCHC 33.1 RDW 14.1 Plt Count 130 L D MPV 8.6 Neut % (Auto) 75.0 H Lymph % (Auto) 15.2 [place] % (Auto) 8.0 Eos % (Auto) 1.5 Baso % (Auto) 0.3 Neut # (Auto) 6.5 Lymph # (Auto) 1.3 [place] # (Auto) 0.7 Eos # (Auto) 0.1 Baso # (Auto) 0.0 WBC Differential . Differential Comment Auto diff final Sodium Potassium Chloride Carbon Dioxide Anion Gap BUN Creatinine Estimated GFR Random Glucose Calcium Assessment and Plan - Plan 88-year-old female with a past medical history significant for glaucoma, NPH, hypertension and hyperlipidemia presents to the emergency department today for evaluation status post mechanical fall at home: GI bleed Hemoccult positive in the ED with dark, tarry stools IV Protonix, change to po Protonix Serial H&Hs have been stable GI following, appreciate assistance. Patient declined endoscopy. Tolerating clear liquid diet, advance as tolerated. Fall, s/p mechanical fall at home Head CT, cervical spine CT, lumbar spine x-ray and sacral x-ray negative for acute process Continue with PT who recommends PT at rehab versus home health PT with assistance at all times when up. Addendum noted by Dr. Morrison that patient's son is requesting [facility]. Case management assisting with discharge planning. Patient evaluated by Taye but did not meet criteria. 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 Meyers
[2018-05-24] MEDS: Pantoprazole Inj 40 MG Vial IV.PUSH SCH (08:25)
--- NOTE | 2018-05-24 10:10 | P.DCO ---
- Diagnosis (1) Gait instability Status: Acute (2) Risk for falls Status: Acute (3) Multiple falls Status: Acute (4) Confusion Status: Acute (5) Compression fracture of L1 lumbar vertebra Status: Acute (6) Impaired mobility and activities of daily living Status: Acute - Physical Therapy Order: Evaluate and treat, Improve ambulation, Strength and gait training - Home Health Nursing Order: Medical education, Signs/symptoms of disease process, Medication education-adverse effect, Nursing assessment with vital signs - Case Management Consult Yes - Certification I have seen patient Monika Ruffin on 05/24/18. My clinical findings support the need for the requested home health care services because: Limited mobility due to disease progression, Deconditioned with increased weakness, Medication compliance is questionable, Limited ability to care for self, Impaired cognition/judgement, High risk of falls I certify that my clinical findings support that this patient is homebound because: Impaired cognitive ability/safety, Unsteady gait/balance, Unsafe to leave home unassisted, Unable to use public transportation (5) Compression fracture of L1 lumbar vertebra Qualifiers: Encounter type: initial encounter Fracture type: closed Qualified Code(s): S32.010A - Wedge compression fracture of first lumbar vertebra, initial encounter for closed fracture
--- NOTE | 2018-05-24 16:38 | P.PNGI ---
Subjective Interval history: Patient sitting upright in bed, denies any abdominal pain, nausea vomiting Denies any noted GI bleeding. <Maryana David - Last Filed: 05/24/18 16:55> Physical Exam Vital signs: Vital Signs 05/23/18 20:00 05/24/18 00:00 05/24/18 04:00 Temperature 98.2 F 97.7 F 98.5 F Pulse Rate 83 89 90 Respiratory Rate 16 17 17 Blood Pressure 146/87 H 149/89 H 145/81 H Pulse Oximetry 93 L 94 L 93 L 05/24/18 07:37 05/24/18 08:00 05/24/18 12:04 Temperature 98.0 F 97.9 F Pulse Rate 97 H 87 75 Respiratory Rate 18 16 Blood Pressure 142/86 H 163/95 H Pulse Oximetry 96 95 Intake & Output 05/23/18 05/24/18 05/24/18 18:59 06:59 18:59 Intake Total 1000 / 1000 1240 / 1240 Output Total 750 / 750 1200 / 1200 Balance 250 / 250 40 / 40 Intake: IV 1000 / 1000 1000 / 1000 NS Inj 1,000 ML @ 75 mls/hr IV. 1000 / 1000 1000 / 1000 CONT .[id number] [facility] Rx#:[id number] Oral 240 / 240 Output: Urine 750 / 750 Urine Amount (Catheter) 1200 / 1200 Female External 1200 / 1200 Other: # Voids 2 Date of Last Bowel Movement 05/22/18 - Constitutional no acute distress - Routine HEENT Exam Head: Present: normocephalic - Routine Respiratory Exam Present: CTA bilaterally. Absent: accessory muscle use - Routine Abdominal Exam Present: soft, normoactive bowel sounds. Absent: tenderness, distended, guarding, firm - Routine Skin Exam Present: dry, warm. Absent: pallor - Routine Neurological Exam Present: alert, oriented X3 - Urinary Catheter Management Female External Cath placed during this visit: yes Reason for continuing: Not indwelling catheter Insertion date: 05/24/18 Insertion time: 04:30 <Maryana David - Last Filed: 05/24/18 16:55> Vital signs: Vital Signs 05/24/18 00:00 05/24/18 04:00 05/24/18 07:37 Temperature 97.7 F 98.5 F 98.0 F Pulse Rate 89 90 97 H Respiratory Rate 17 17 18 Blood Pressure 149/89 H 145/81 H 142/86 H Pulse Oximetry 94 L 93 L 96 05/24/18 08:00 05/24/18 12:04 05/24/18 17:23 Temperature 97.9 F 98.1 F Pulse Rate 87 75 74 Respiratory Rate 16 16 Blood Pressure 163/95 H 171/87 H Pulse Oximetry 95 94 L 05/24/18 20:15 Temperature 98.0 F Pulse Rate 78 Respiratory Rate 18 Blood Pressure 140/71 Pulse Oximetry 94 L Intake & Output 05/24/18 05/24/18 05/25/18 06:59 18:59 06:59 Intake Total 1240 / 1240 900 / 900 Output Total 1200 / 1200 1800 / 1800 Balance 40 / 40 -900 / -900 Intake: IV 1000 / 1000 900 / 900 NS Inj 1,000 ML @ 75 mls/hr IV. 1000 / 1000 900 / 900 CONT .[id number] [facility] Rx#:[id number] Oral 240 / 240 Output: Urine Amount (Catheter) 1200 / 1200 1800 / 1800 Female External 1200 / 1200 1800 / 1800 Other: Date of Last Bowel Movement 05/22/18 - Urinary Catheter Management Female External Cath placed during this visit: no <Amadeo Whalen - Last Filed: 05/24/18 21:28> Results - Labs CBC & Chem 7: 05/24/18 05:15 05/23/18 06:05 Laboratory Results - last 24 hr 05/23/18 05/24/18 22:22 05:15 WBC 8.6 RBC 5.03 Hgb 13.4 14.2 Hct 38.8 42.9 MCV 85.3 D MCH 28.2 MCHC 33.1 RDW 14.1 Plt Count 130 L D MPV 8.6 Neut % (Auto) 75.0 H Lymph % (Auto) 15.2 [place] % (Auto) 8.0 Eos % (Auto) 1.5 Baso % (Auto) 0.3 Neut # (Auto) 6.5 Lymph # (Auto) 1.3 [place] # (Auto) 0.7 Eos # (Auto) 0.1 Baso # (Auto) 0.0 WBC Differential . Differential Comment Auto diff final <Maryana David - Last Filed: 05/24/18 16:55> - Labs CBC & Chem 7: 10/24/18 05:15 05/23/18 06:05 Laboratory Results - last 24 hr 05/23/18 05/24/18 22:22 05:15 WBC 8.6 RBC 5.03 Hgb 13.4 14.2 Hct 38.8 42.9 MCV 85.3 D MCH 28.2 MCHC 33.1 RDW 14.1 Plt Count 130 L D MPV 8.6 Neut % (Auto) 75.0 H Lymph % (Auto) 15.2 [place] % (Auto) 8.0 Eos % (Auto) 1.5 Baso % (Auto) 0.3 Neut # (Auto) 6.5 Lymph # (Auto) 1.3 [place] # (Auto) 0.7 Eos # (Auto) 0.1 Baso # (Auto) 0.0 WBC Differential . Differential Comment Auto diff final <Amadeo Whalen - Last Filed: 05/24/18 21:28> Assessment and Plan (1) GI bleed Status: Acute Code(s): K92.2 - Gastrointestinal hemorrhage, unspecified - Plan 05/24/2018 GI bleed Patient sitting upright in bed denies any abdominal pain, nausea or vomiting. No reported bleeding, patient denies any noted rectal bleeding. Hemoglobin 14.2 hematocrit 42.9 platelet count 130. GI bleed most likely related to patient's taking 162 mg of aspirin twice daily as home medication. Plan -Cardiac diet as tolerated -Monitor for bleeding -Patient advised to avoid NSAIDs and aspirin -PPI -Monitor labs -Supportive care -Patient stable for discharge home from GI standpoint; advise to FU with GI for any noted bleeding This patient has been seen by myself and Dr. Whalen and this note is written on his behalf - Attending Attestation Dr. Whalen <Maryana David - Last Filed: 05/24/18 16:55> (1) GI bleed Status: Acute Code(s): K92.2 - Gastrointestinal hemorrhage, unspecified - Plan Patient seen and examined Agree with above Continue with current supportive care Monitor labs Continue pantoprazole Follow-up with GI post discharge We will sign off <Amadeo Whalen - Last Filed: 05/24/18 21:28>
--- NOTE | 2018-05-25 01:40 | ECG ---
Date Performed: 05/22/2018 Time Performed: 21:57:06 PTAGE: 88 years EKG: Sinus rhythm with frequent PACs Possible left atrial enlargement PREVIOUS TRACING : 03/15/2018 10.14 Since the previous tracing, no significant change not ed DOCTOR: Dariusz King Interpretating Date/Time 05/25/2018 01:38:35
[2018-05-25] MEDS: Sod Chloride 0.9% Inj 1,000 ML IV.CONT SCH (04:50)
--- NOTE | 2018-05-25 07:32 | P.PN ---
Subjective Interval history: Follow-up on patient with mechanical fall at home, black, tarry stools. Patient seen and examined. Patient states she feels well. She denies any complaints. She wants to go home. She does not know whether or not she has had a bowel movement since admission. She denies any fever chills. Denies any chest pain or shortness of breath. She denies any nausea or vomiting or abdominal pain. Physical Exam Vital signs: Vital Signs 05/24/18 07:37 05/24/18 08:00 05/24/18 12:04 Temperature 98.0 F 97.9 F Pulse Rate 97 H 87 75 Respiratory Rate 18 16 Blood Pressure 142/86 H 163/95 H Pulse Oximetry 96 95 05/24/18 17:23 05/24/18 20:15 05/25/18 00:00 Temperature 98.1 F 98.0 F 97.8 F Pulse Rate 74 78 73 Respiratory Rate 16 18 16 Blood Pressure 171/87 H 140/71 131/63 Pulse Oximetry 94 L 94 L 95 05/25/18 04:00 Temperature 97.9 F Pulse Rate 82 Respiratory Rate 15 Blood Pressure 144/71 H Pulse Oximetry 92 L Intake & Output 05/24/18 05/25/18 05/25/18 18:59 06:59 18:59 Intake Total 900 / 900 1000 / 1000 Output Total 1800 / 1800 Balance -900 / -900 1000 / 1000 Weight 33.6 kg Intake: IV 900 / 900 1000 / 1000 NS Inj 1,000 ML @ 75 mls/hr IV. 900 / 900 1000 / 1000 CONT .[id number] [facility] Rx#:[id number] Output: Urine Amount (Catheter) 1800 / 1800 Female External 1800 / 1800 Other: Date of Last Bowel Movement 05/22/18 Narrative: GENERAL: Thin elderly female patient. Awake and alert. Appears comfortable. [place]. SKIN: Warm and dry. No rash. HEENT: Atraumatic. Normocephalic. Pupils equal and round. No scleral icterus. No injection or drainage. No nasal bleeding or discharge. Mucous membranes pink and moist. NECK: Trachea midline. CARDIOVASCULAR: Regular rate and rhythm. RESPIRATORY: No accessory muscle use. Clear to auscultation. Breath sounds equal bilaterally. GASTROINTESTINAL: Abdomen soft, non-tender, nondistended. +BS. MUSCULOSKELETAL: Extremities without clubbing, cyanosis, or edema. No obvious deformities. NEUROLOGICAL: Awake and alert. Pleasantly confused. No obvious cranial nerve deficits. Able to move all extremities spontaneously. Normal speech. PSYCHIATRIC: Calm and cooperative. - Urinary Catheter Management Female External Cath placed during this visit: yes Reason for continuing: Not indwelling catheter Insertion date: 05/24/18 Insertion time: 04:30 Results - Labs CBC & Chem 7: 05/24/18 05:15 05/23/18 06:05 Assessment and Plan - Plan 88-year-old female with a past medical history significant for glaucoma, NPH, hypertension and hyperlipidemia presents to the emergency department today for evaluation status post mechanical fall at home: GI bleed Hemoccult positive in the ED with dark, tarry stools Likely secondary to NSAID use IV Protonix, changed to po Protonix Serial H&Hs have been stable GI following, appreciate assistance. Patient declined endoscopy. Tolerating diet. No further bleeding noted. GI has signed off. Fall, s/p mechanical fall at home Head CT, cervical spine CT, lumbar spine x-ray and sacral x-ray negative for acute process Continue with PT who recommends PT at rehab versus home health PT with assistance at all times when up. Addendum noted by Dr. Morrison that patient's son is requesting SNF placement at [facility]. Case management assisting with discharge planning. Patient evaluated by Taye but did not meet criteria. 05/25 CM discussed with son who has found placement at [facility]. Patient to be transferred today. 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 Meyers
[2018-05-25 07:59] VITALS: PULSE 84; RESP 16; TEMP 98; O2SAT 94
[2018-05-25 08:58] VITALS: BP 100/55
== END 2018-05-25 11:22 ==
LOC: NEPE 19:34 → NEDA 19:34 → NEPHCDU 05-23 01:15 → NEDH 05-25 10:22 → NEPHCDU 05-25 10:23
PROVIDERS: ADMIT Hospitalist; ATTEND Hospitalist